=== PATIENT | female | born 1985 | race Caucasian/White ===

== ENCOUNTER 2021-03-27 07:05 | Inpatient (IN) | payer MEDICAID ==
[2021-03-27] MEDS ORDERED: Neostigmine Methylsulfate 1 MG/ML 5 ML Syringe ONE (07:11)
[2021-03-27] MEDS ORDERED: Rocuronium 50 MG/5 ML Vial ONE ×2 (07:11→11:45)
[2021-03-27] MEDS ORDERED: Propofol 200 MG/20 ML SDV ONE (07:11)
[2021-03-27] MEDS ORDERED: Glycopyrrolate 0.2 MG/ML 5 ML MDV ONE (07:11)
[2021-03-27] MEDS ORDERED: Dexamethasone 4 MG/ML SDV ONE (07:11)
[2021-03-27] MEDS ORDERED: fentaNYL 250 MCG/5 ML SDV ONE ×2 (07:11→12:14)
[2021-03-27] MEDS ORDERED: Ondansetron 4 MG/2 ML SDV ONE (07:11)
[2021-03-27] MEDS ORDERED: Succinylcholine 200 MG/10 ML MDV ONE (07:11)
[2021-03-27] MEDS ORDERED: HYDROmorphone/Normal Saline 15 MG/30 ML PCA IV PRN (07:43)
[2021-03-27] MEDS ORDERED: Piperacillin/Tazobactam/Dext 3.375 GM in Premix Bag 1 BAG IV ONE (08:00)
[2021-03-27] MEDS ORDERED: Ketamine 500 MG/5 ML MDV IV SCH (08:00)
[2021-03-27] MEDS ORDERED: Lactated Ringers 500 ML IV ONE (08:00)
[2021-03-27] MEDS ORDERED: Naloxone 0.4 MG/ML SDV IV PRN (08:00)
[2021-03-27] MEDS ORDERED: Ketamine 50 MG in Sodium Chloride 0.9% 49.5 ML IV SCH (08:00)
[2021-03-27] MEDS: Lactated Ringers 1,000 ML IV SCH ×3 (08:23→23:05)
[2021-03-27] MEDS ORDERED: Meperidine 300 MG/30 ML PCA Vial IV PRN (09:00)
[2021-03-27] MEDS ORDERED: Meropenem 500 MG SDV ONE (09:14)
[2021-03-27] MEDS ORDERED: Bupivacaine 0.5% 50 ML MDV ONE (09:14)
[2021-03-27] MEDS ORDERED: Lidocaine 1% with EPINEPHrine 1:100,000 50 ML MDV ONE (09:14)
[2021-03-27] MEDS: Potassium Acetate 20 MEQ, Lidocaine 1% 2 ML in Sodium Chloride 0.9% 100 ML IV SCH ×2 (09:30→14:42)
[2021-03-27] MEDS ORDERED: Sugammadex Sodium 200 MG/2 ML VIAL ONE (11:40)
[2021-03-27] MEDS ORDERED: Cyclobenzaprine 10 MG Tab PO PRN (13:55)
[2021-03-27] MEDS ORDERED: Albuterol/Ipratropium 3.0-0.5 MG/3 ML Neb Soln INH PRN (14:00)
[2021-03-27] MEDS ORDERED: Labetalol 20 MG/4 ML Syringe IVPUSH PRN (14:00)
[2021-03-27] MEDS ORDERED: Metoclopramide 10 MG/2 ML SDV IVPUSH PRN (14:00)
[2021-03-27] MEDS ORDERED: hydrOXYzine HCL 100 MG/2 ML SDV IM PRN (14:00)
[2021-03-27] MEDS ORDERED: diphenhydrAMINE 50 MG/ML SDV IVPUSH PRN (14:00)
[2021-03-27] MEDS: Albuterol/Ipratropium 3.0-0.5 MG/3 ML Neb Soln INH SCH ×3 (14:22→21:06)
[2021-03-27] MEDS: Piperacillin/Tazobactam/Dext 3.375 GM in Premix Bag 1 BAG IV SCH ×2 (14:41→20:50)
[2021-03-27] MEDS ORDERED: Acetaminophen 500 MG Tab PO PRN (15:00)
[2021-03-27] MEDS ORDERED: Acetaminophen 500 MG Tab PO SCH (16:00)
[2021-03-27] MEDS: MVI, Adult with Vitamin K 10 ML, Thiamine 200 MG, Zinc/Copper/Manganese/Selenium 1 ML i... IV SCH ×4 (16:08)
[2021-03-27] MEDS: Linezolid 600 MG in Premix Bag 1 BAG IV SCH (16:10)
[2021-03-27] MEDS: Heparin Sodium 5,000 Units/ML Vial SUBCUT SCH ×2 (16:13→23:48)
[2021-03-27] MEDS: Pantoprazole 40 MG Vial IVPUSH SCH (16:13)
[2021-03-27] MEDS: Magnesium Sulfate/Water 2 GM/50 ML BAG IV SCH ×2 (17:01→21:09)
[2021-03-27] MEDS: Potassium Phos in 0.9 % NaCl 15 MMOL in Premix Bag 1 BAG IV SCH ×6 (18:39→23:17)
[2021-03-28] MEDS: Potassium Phos in 0.9 % NaCl 15 MMOL in Premix Bag 1 BAG IV SCH ×2 (01:37)
[2021-03-28] MEDS: Piperacillin/Tazobactam/Dext 3.375 GM in Premix Bag 1 BAG IV SCH ×4 (01:37→19:57)
[2021-03-28] MEDS: Linezolid 600 MG in Premix Bag 1 BAG IV SCH ×2 (04:25→13:30)
[2021-03-28] MEDS: Magnesium Sulfate/Water 2 GM/50 ML BAG IV SCH ×4 (05:46→21:47)
[2021-03-28] MEDS: Albuterol/Ipratropium 3.0-0.5 MG/3 ML Neb Soln INH SCH ×4 (06:59→20:04)
[2021-03-28] MEDS: Lactated Ringers 1,000 ML IV SCH ×3 (07:24→21:45)
[2021-03-28] MEDS: Heparin Sodium 5,000 Units/ML Vial SUBCUT SCH ×3 (07:33→23:24)
[2021-03-28] MEDS ORDERED: Furosemide 20 MG/2 ML VIAL IVPUSH SCH (09:00)
[2021-03-28] MEDS: DULoxetine 30 MG Cap PO SCH (09:57)
[2021-03-28] MEDS: Pregabalin 75 MG Cap PO SCH ×2 (09:57→20:04)
[2021-03-28] MEDS: Furosemide 20 MG/2 ML VIAL IVPUSH SCH (09:57)
[2021-03-28] MEDS: Levothyroxine 100 MCG Tab PO SCH (09:57)
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
[2021-03-28] MEDS: Potassium Phosphates 15 MMOLE in Sodium Chloride 0.9% 250 ML IV SCH ×2 (10:34→12:45)
[2021-03-28] MEDS ORDERED: Sodium Chloride 0.9% 10 ML Syringe FLUSH PRN (11:28)
[2021-03-28] MEDS ORDERED: Sodium Chloride 0.9% 100 ML IV SCH (11:30)
[2021-03-28] MEDS ORDERED: Iopamidol 755 Mg/ML 100 ML Bottle IV SCH (11:30)
--- NOTE | 2021-03-28 13:49 | CRLCT ---
INDICATION: Hypoxic, respiratory failure. Two weeks postop from gastric bypass. TECHNIQUE: CT chest was acquired with IV contrast. Due to technical limitations and miss timed IV contrast bolus, no PE protocol performed. COMPARISON: None. FINDINGS: Cardiovascular structures: Heart size is normal. Thoracic aorta and main pulmonary artery are normal in caliber. No large, central pulmonary artery filling defect. Nondiagnostic evaluation lobar, segmental, and subsegmental pulmonary artery branches due to minimal contrast opacification. Mediastinum and micha: No mass or adenopathy. Lungs: Moderate degree of dependent atelectasis involving medial segment of left lower lobe. Mild dependant atelectasis at medial margin of right lower lobe. Bilateral upper lobes are clear. No airspace consolidation or suspicious ground-glass opacities. Pleura and pericardium: No effusions. Chest wall and axilla: No mass or adenopathy. Thyroid gland unremarkable. Upper abdomen: Postsurgical changes from recent gastric bypass. Bones: No significant findings. No displaced rib fracture deformity. IMPRESSION: 1. Nondiagnostic study for evaluation of pulmonary arteries due to sub-optimal timing of IV contrast bolus. 2. Postsurgical changes from recent gastric bypass. 3. Mild degree of dependent bilateral lower lobe atelectasis, left greater than right. Possible infiltrate in the left lower lobe not excluded. Dictated by Jefferson Daniel MD @ 03/28/2021 1:46:37 PM Please note that all CT scans at this facility use dose modulation, iterative reconstruction, and/or weight-based dosing when appropriate to reduce radiation dose to as low as reasonably achievable. Dictated by: Jefferson Daniel MD @ 03/28/2021 13:47:44 (Electronically Signed)
[2021-03-28] MEDS: Pantoprazole 40 MG Vial IVPUSH SCH (16:36)
[2021-03-28] MEDS: MVI, Adult with Vitamin K 10 ML, Thiamine 200 MG, Zinc/Copper/Manganese/Selenium 1 ML i... IV SCH ×4 (16:37)
[2021-03-29] MEDS: Piperacillin/Tazobactam/Dext 3.375 GM in Premix Bag 1 BAG IV SCH ×4 (02:28→21:19)
[2021-03-29] MEDS: Linezolid 600 MG in Premix Bag 1 BAG IV SCH ×2 (02:30→16:33)
[2021-03-29] MEDS: Magnesium Sulfate/Water 2 GM/50 ML BAG IV SCH ×4 (03:05→21:21)
[2021-03-29] MEDS: Albuterol/Ipratropium 3.0-0.5 MG/3 ML Neb Soln INH SCH ×4 (07:15→21:21)
[2021-03-29] MEDS: Levothyroxine 100 MCG Tab PO SCH (07:25)
[2021-03-29] MEDS ORDERED: Potassium Phosphates 60 MMOLE in Sodium Chloride 0.9% 250 ML IV SCH (07:45)
[2021-03-29] MEDS: Pregabalin 75 MG Cap PO SCH ×2 (08:41→21:20)
[2021-03-29] MEDS: Heparin Sodium 5,000 Units/ML Vial SUBCUT SCH ×2 (08:41→16:37)
[2021-03-29] MEDS: Furosemide 20 MG/2 ML VIAL IVPUSH SCH (08:42)
[2021-03-29] MEDS: DULoxetine 30 MG Cap PO SCH (08:42)
[2021-03-29] MEDS ORDERED: Cyanocobalamin (Vitamin B12) 1,000 MCG/ML SDV IM ONE (09:00)
[2021-03-29] MEDS: Ondansetron 4 MG/2 ML SDV IVPUSH PRN (09:31)
[2021-03-29] MEDS: Potassium Phosphates 15 MMOLE in Sodium Chloride 0.9% 250 ML IV SCH ×4 (09:56→17:00)
--- NOTE | 2021-03-29 10:14 | PN ---
DATE OF SERVICE: 03/29/2021 SUBJECTIVE: Elza states her pain is controlled. She does have her CPAP on right now. Has been afebrile. Oral intake 280, urine output 1475. JOHANN drain put out 35 mL of blue drainage and it is the back up JOHANN drain and JOHANN drain #2 put out 455 mL of a blue drainage which goes back behind the esophagus. REVIEW OF SYSTEMS: Remainder of review of systems negative for any pertinent positives or negatives. ASSESSMENT: Diagnostic laparotomy with drainage of intraabdominal abscess between esophagogastric junction and spleen. Date of procedure: 03/27/2021. Surgeon; Tonny Allison MD PLAN: 1. K-Phos 60 millimoles IV now. 2. p.r.n. as depending on O2 saturation. 3. Check CBC, mag, phos, BNP, and CMP in a.m. 4. We will evaluate p.r.n. or in a.m. 5. CT scan will be re-evaluated or pending drainage of the JOHANN drains, she may need to go to OR to put in esophageal stents, and at the same time we will put in a central line. 6. Continue to evaluate p.r.n. or in a.m. Dinora Fermin PA-C /[id number]
--- NOTE | 2021-03-29 11:58 | US ---
VL Duplex Lwr Ext Veins Comp bilateral HISTORY: No Clinical Info FINDINGS: The deep veins of the both lower extremities demonstrate normal augmentation and compressibility. No evidence for deep venous thrombosis. Calf veins are less than optimally seen due to patient body habitus. IMPRESSION: No evidence of DVT in either lower extremity
--- NOTE | 2021-03-29 13:49 | CR ---
CHEST: 2 view CLINICAL HISTORY:Hypoxia COMPARISON:None FINDINGS: Heart size and pulmonary vascularity are normal. There is some streaky airspace disease in the left lower lobe. This may be infiltrate or atelectasis. Lung markings are exaggerated by patient's large size. Impression: Streaky airspace disease in left lower lobe. This is atelectasis versus infiltrate.
--- NOTE | 2021-03-29 13:54 | CR ---
CHEST: 2 view CLINICAL HISTORY:Hypoxia COMPARISON:03/28/2021 FINDINGS: Patchy airspace disease persists in the left lower lobe. This minimal patchy right infrahilar density. There is a generalized prominence of the lung markings and vascularity. This is exaggerated by patient's large size and less than optimal inspiration. Impression: Persistent stable airspace disease left lower lobe Mild patchy infiltrate-like density in the right infrahilar region Less than optimal study due to patient's large size and poor inspiratory level
--- NOTE | 2021-03-29 15:18 | PCM.CONSN ---
- General Info Date of Service: 03/29/21 Subjective Update: Ms. Alejandre has been stable since yesterday, continues to require increased amount of supplemental oxygen. She denies shortness of breath from baseline and has otherwise been hemodynamically stable and afebrile. Functional Status: Reports: Pain Controlled - Review of Systems General: Reports: Weakness, Fatigue Pulmonary: Reports: Shortness of Breath. Denies: Pleuritic Chest Pain, Cough, Sputum, Hemoptysis, Wheezing Cardiovascular: Reports: Dyspnea on Exertion. Denies: Chest Pain, Palpitations, Orthopnea, PND, Edema, Lightheadedness Gastrointestinal: Reports: Abdominal Pain. Denies: Difficulty Swallowing, Nausea, Vomiting Genitourinary: Reports: No Symptoms - Patient Data Vitals - Most Recent: Last Vital Signs Temp 96.6 F L 03/29/21 14:24 Pulse 86 03/29/21 14:24 Resp 18 03/29/21 14:24 BP 105/61 03/29/21 14:24 Pulse Ox 95 03/29/21 14:24 Weight - Most Recent: 523 lb I&O - Last 24 Hours: Intake & Output 03/29/21 03/29/21 03/29/21 06:59 14:59 22:59 Intake Total 1940 60 Output Total 600 3480 Balance 1340 -3420 Lab Results Last 24 Hours: Laboratory Results - last 24 hr 03/29/21 03/29/21 Range/Units 04:10 04:10 WBC 6.3 (4.5-11.0) K/uL RBC 4.13 (3.30-5.50) M/uL Hgb 11.7 L (12.0-15.0) g/dL Hct 36.9 (36.0-48.0) % MCV 89 (80-98) fL MCH 28 (27-31) pg MCHC 32 (32-36) % Plt Count 212 (150-400) K/uL Neut % (Auto) 64 (36-66) % Lymph % (Auto) 22 L (24-44) % Yell % (Auto) 10 H (2-6) % Eos % (Auto) 3 (2-4) % Baso % (Auto) 1 (0-1) % Sodium 142 (140-148) mmol/L Potassium 3.2 L (3.6-5.2) mmol/L Chloride 104 (100-108) mmol/L Carbon Dioxide 26 (21-32) mmol/L Anion Gap 15.2 H (5.0-14.0) mmol/L BUN 7 (7-18) mg/dL Creatinine 0.9 (0.6-1.0) mg/dL Est Cr Clr Drug Dosing 71.48 mL/min Estimated GFR (MDRD) > 60 (>60) Glucose 157 H (74-106) mg/dL Calcium 7.9 L (8.5-10.1) mg/dL Phosphorus 2.6 (2.5-4.9) mg/dL Total Bilirubin 0.4 (0.2-1.0) mg/dL AST 27 (15-37) U/L ALT 41 (12-78) U/L Alkaline Phosphatase 57 (46-116) U/L NT-Pro-B Natriuret Pep 175 H (5-125) pg/mL Total Protein 6.4 (6.4-8.2) g/dL Albumin 2.3 L (3.4-5.0) g/dL Globulin 4.1 H (2.3-3.5) g/dL Albumin/Globulin Ratio 0.6 L (1.2-2.2) Onesimo Results Last 24 Hours: Microbiology 03/27/21 12:18 Gram Stain - Final Abdomen - Abscess Wound Culture - Preliminary Anaerobic Culture - Preliminary NO GROWTH AFTER 1 DAY 03/27/21 12:05 Gram Stain - Final Abdomen - Abscess Wound Culture - Preliminary Anaerobic Culture - Preliminary NO GROWTH AFTER 1 DAY 03/27/21 11:27 Urine Culture - Final Urine, Sinha Cath (Indwelling) NO GROWTH AFTER 2 DAYS Med Orders - Current: Current Medications Albuterol/Ipratropium (Albuterol/Ipratropium 3.0-0.5 Mg/3 Ml Neb Soln) 3 ml INH QIDRT MAURICE Last Admin: 03/29/21 14:40 Dose: 3 ml Documented by: Albuterol/Ipratropium (Albuterol/Ipratropium 3.0-0.5 Mg/3 Ml Neb Soln) 3 ml INH ASDIRECTED PRN PRN Reason: BREATHING Last Admin: 03/28/21 00:21 Dose: 3 ml Documented by: Cyclobenzaprine HCl (Cyclobenzaprine 10 Mg Tab) 10 mg PO Q8H PRN PRN Reason: Muscle Spasm Diphenhydramine HCl (Diphenhydramine 50 Mg/Ml Sdv) 50 mg IVPUSH Q4H PRN PRN Reason: ITCHING Duloxetine HCl (Duloxetine 30 Mg Cap) 60 mg PO DAILY [facility] Last Admin: 03/29/21 08:42 Dose: 60 mg Documented by: Furosemide (Furosemide 20 Mg/2 Ml Vial) 20 mg IVPUSH DAILY [facility] Last Admin: 03/29/21 08:42 Dose: 20 mg Documented by: Heparin Sodium (Porcine) (Heparin Sodium 5,000 Units/Ml Vial) 5,000 units SUBCUT Q8H [facility] Last Admin: 03/29/21 08:41 Dose: 5,000 units Documented by: Hydroxyzine HCl (Hydroxyzine Hcl 100 Mg/2 Ml Sdv) 100 mg IM Q4H PRN PRN Reason: breakthrough pain Lactated Ringer's (Ringers, Lactated) 1,000 mls @ 100 mls/hr IV ASDIRECTED [facility] Last Admin: 03/28/21 21:45 Dose: 200 mls/hr Documented by: Piperacillin/Tazobactam/ (Dextrose 3.375 gm/ Premix) 50 mls @ 100 mls/hr IV Q6H [facility] Last Admin: 03/29/21 13:44 Dose: 100 mls/hr Documented by: Linezolid 600 mg/ Premix 300 mls @ 300 mls/hr IV Q12H [facility] Last Admin: 03/29/21 02:30 Dose: 300 mls/hr Documented by: Magnesium Sulfate (Magnesium Sulfate In Water 2 Gm/50 Ml) 2 gm in 50 mls @ 25 mls/hr IV Q6HR [facility] Stop: 03/30/21 11:59 Last Admin: 03/29/21 09:02 Dose: 25 mls/hr Documented by: Potassium Phosphate 15 mmole/ (Sodium Chloride) 255 mls @ 125 mls/hr IV Q2H [facility] Stop: 03/29/21 17:59 Last Admin: 03/29/21 14:37 Dose: 125 mls/hr Documented by: Labetalol HCl (Labetalol 20 Mg/4 Ml Syringe) 5 mg IVPUSH Q5M PRN PRN Reason: SBP over 160 OR DBP over 95 Levothyroxine Sodium (Levothyroxine 100 Mcg Tab) 100 mcg PO DAILY@0730 [facility] Last Admin: 03/29/21 07:25 Dose: 100 mcg Documented by: Meperidine HCl (Meperidine 300 Mg/30 Ml Review Manager Vial) 0 mg IV ASDIRECTED PRN; Protocol PRN Reason: PAIN Last Admin: 03/27/21 10:12 Dose: 300 mg Documented by: Metoclopramide HCl (Metoclopramide 10 Mg/2 Ml Sdv) 10 mg IVPUSH Q6H PRN PRN Reason: NAUSEA NOT CONTROL BY ZOFRAN Naloxone HCl (Naloxone 0.4 Mg/Ml Sdv) 0.1 mg IV ASDIRECTED PRN PRN Reason: decreased respiratory rate Ondansetron HCl (Ondansetron 4 Mg/2 Ml Sdv) 4 mg IVPUSH Q4H PRN PRN Reason: Nausea/Vomiting Last Admin: 03/29/21 09:31 Dose: 4 mg Documented by: Pantoprazole Sodium (Pantoprazole 40 Mg Vial) 40 mg IVPUSH Q24H [facility] Last Admin: 03/28/21 16:36 Dose: 40 mg Documented by: Pregabalin (Pregabalin 75 Mg Cap) 150 mg PO BID [facility] Last Admin: 03/29/21 08:41 Dose: 150 mg Documented by: Discontinued Medications Bupivacaine HCl (Bupivacaine 0.5% 50 Ml Mdv) Confirm Administered Dose 50 ml .ROUTE .STK-MED ONE Stop: 03/27/21 09:15 Ropivacaine 60 ml/Dexamethasone 8 mg/Epinephrine HCl 0.4 mg/ Sodium Chloride 17.6 ml 0 ml NERVRT ASDIRECTED [facility] Last Admin: 03/27/21 11:39 Dose: 80 syringe Documented by: Cyanocobalamin (Cyanocobalamin (Vitamin B12) 1,000 Mcg/Ml Sdv) 1,000 mcg IM ONETIME ONE Stop: 03/29/21 09:01 Last Admin: 03/29/21 08:42 Dose: 1,000 mcg Documented by: Dexamethasone (Dexamethasone 4 Mg/Ml Sdv) Confirm Administered Dose 4 mg .ROUTE .STK-MED ONE Stop: 03/27/21 07:12 Fentanyl (Fentanyl 250 Mcg/5 Ml Sdv) Confirm Administered Dose 250 mcg .ROUTE .STK-MED ONE Stop: 03/27/21 07:12 Fentanyl (Fentanyl 250 Mcg/5 Ml Sdv) Confirm Administered Dose 250 mcg .ROUTE .STK-MED ONE Stop: 03/27/21 12:15 Furosemide (Furosemide 20 Mg/2 Ml Vial) 2 mg IVPUSH DAILY [facility] Glycopyrrolate (Glycopyrrolate 0.2 Mg/Ml 5 Ml Mdv) Confirm Administered Dose 1 mg .ROUTE .STK-MED ONE Stop: 03/27/21 07:12 Lactated Ringer's (Ringers, Lactated) 500 mls @ 1,000 mls/hr IV ONETIME ONE Stop: 03/27/21 08:29 Last Admin: 03/27/21 08:19 Dose: 1,000 mls/hr Documented by: Lactated Ringer's (Ringers, Lactated) 1,000 mls @ 250 mls/hr IV ASDIRECTED [facility] Last Admin: 03/27/21 10:15 Dose: 250 mls/hr Documented by: Piperacillin/Tazobactam/ (Dextrose 3.375 gm/ Premix) 50 mls @ 100 mls/hr IV ONETIME ONE Stop: 03/27/21 08:29 Last Admin: 03/27/21 08:19 Dose: 100 mls/hr Documented by: Aztreonam 1 gm/ Sodium (Chloride) 50 mls @ 100 mls/hr IV ONCALL ONE Stop: 03/27/21 09:29 Last Admin: 03/27/21 10:37 Dose: 100 mls/hr Documented by: Ketamine HCl 50 mg/ Sodium (Chloride) 50 mls @ 15.72 mls/hr IV ASDIRECTED [facility] Potassium Acetate 20 meq/Lidocaine HCl 2 ml/ Sodium Chloride 112 mls @ 56 mls/hr IV Q2H [facility] Stop: 03/27/21 12:59 Last Admin: 03/27/21 14:42 Dose: 56 mls/hr Documented by: Multivitamins/Minerals 10 ml/Thiamine HCl 200 mg/ Zinc 1 ml / Lactated Ringer's 1,013 mls @ 200 mls/hr IV DAILY@1600 [facility] Stop: 03/28/21 21:04 Last Admin: 03/28/21 16:37 Dose: 200 mls/hr Documented by: Potassium Phosphate 15 mmol/ (Premix) 250 mls @ 125 mls/hr IV Q2H [facility] Stop: 03/28/21 01:59 Last Admin: 03/28/21 01:37 Dose: 125 mls/hr Documented by: Potassium Phosphate 15 mmole/ (Sodium Chloride) 255 mls @ 125 mls/hr IV Q2H [facility] Stop: 03/28/21 13:59 Last Admin: 03/28/21 12:45 Dose: 125 mls/hr Documented by: Sodium Chloride (Normal Saline) 100 mls @ 3 mls/sec IV ASDIRECTED [facility] Stop: 03/28/21 13:00 Last Admin: 03/28/21 13:08 Dose: 3 mls/sec Documented by: Iopamidol (Iopamidol 755 Mg/Ml 100 Ml Bottle) 100 ml IV . DIRECTED [facility] Stop: 03/28/21 13:00 Last Admin: 03/28/21 13:08 Dose: 100 ml Documented by: Ketamine HCl (Ketamine 500 Mg/5 Ml Mdv) 26 mg IV ASDIRECTED [facility] Lidocaine/Epinephrine (Lidocaine 1% With Epinephrine 1:100,000 50 Ml Mdv) Confirm Administered Dose 50 ml .ROUTE .STK-MED ONE Stop: 03/27/21 09:15 Linezolid (Linezolid 600 Mg/300 Ml Bag) 600 mg IV .STK-MED ONE Stop: 03/27/21 12:34 Last Admin: 03/27/21 12:33 Dose: 600 mg Documented by: Meropenem (Meropenem 500 Mg Sdv) Confirm Administered Dose 500 mg .ROUTE .STK- MED ONE Stop: 03/27/21 09:15 Neostigmine Methylsulfate (Neostigmine Methylsulfate 1 Mg/Ml 5 Ml Syringe) Confirm Administered Dose 5 mg .ROUTE .STK-MED ONE Stop: 03/27/21 07:12 Ondansetron HCl (Ondansetron 4 Mg/2 Ml Sdv) Confirm Administered Dose 4 mg .ROUTE .STK-MED ONE Stop: 03/27/21 07:12 Piperacillin Sod/Tazobactam Sod (Piperacillin/Tazobactam 3.375 Gm Vial) Confirm Administered Dose 3.375 gm .ROUTE .STK-MED ONE Stop: 03/27/21 11:10 Piperacillin Sod/Tazobactam Sod (Piperacillin/Tazobactam 3.375 Gm Vial) 3.375 gm .XX .STK-MED ONE Stop: 03/27/21 11:53 Last Admin: 03/27/21 11:52 Dose: 3.375 gm Documented by: Propofol (Propofol 200 Mg/20 Ml Sdv) Confirm Administered Dose 200 mg .ROUTE .STK-MED ONE Stop: 03/27/21 07:12 Rocuronium [place] (Rocuronium 50 Mg/5 Ml Vial) Confirm Administered Dose 50 mg .ROUTE .STK-MED ONE Stop: 03/27/21 07:12 Rocuronium [place] (Rocuronium 50 Mg/5 Ml Vial) Confirm Administered Dose 50 mg .ROUTE .STK-MED ONE Stop: 03/27/21 11:46 Sodium Chloride (Sodium Chloride 0.9% 10 Ml Syringe) 10 ml FLUSH ASDIRECTED PRN PRN Reason: Keep Vein Open Stop: 03/28/21 13:00 Succinylcholine Chloride (Succinylcholine 200 Mg/10 Ml Mdv) Confirm Administered Dose 200 mg .ROUTE .STK-MED ONE Stop: 03/27/21 07:12 Sugammadex Sodium (Sugammadex Sodium 200 Mg/2 Ml Vial) Confirm Administered Dose 200 mg .ROUTE .STK-MED ONE Stop: 03/27/21 11:41 - Exam Quality Assessment: Supplemental Oxygen, DVT Prophylaxis General: Alert, Oriented, Cooperative, Mild Distress Lungs: Clear to Auscultation, Normal Respiratory Effort, Decreased Breath Sounds Cardiovascular: Regular Rate, Regular Rhythm, No Murmurs GI/Abdominal Exam: Soft, Non-Tender, No Organomegaly, No Distention Extremities: Non-Tender, No Pedal Edema Sepsis Event Note - Evaluation Sepsis Screening Result: No Definite Risk - Focused Exam Vital Signs: Vital Signs Temp Pulse Resp BP BP Pulse Ox 03/29/21 14:24 96.6 F L 86 18 105/61 95 03/29/21 13:24 93 L 03/29/21 11:00 95.2 F L 89 18 117/54 L 91 L 03/29/21 07:19 96 03/29/21 07:00 96.2 F L 91 18 131/53 L 91 L Consult PN Assessment/Plan Procedures: Procedures BLOOD TYPING SEROLOGIC ABO (01/29/21) BLOOD TYPING SEROLOGIC RH(D) (01/29/21) RBC ANTIBODY SCREEN (01/29/21) ROUTINE VENIPUNCTURE (01/29/21) Problem List Initiated/Reviewed/Updated: Yes Plan: ASSESSMENT AND RECOMMENDATIONS Acute respiratory failure with hypoxia-atelectasis seems to be the most likely culprit based on CT scan imaging. Cannot rule out PE because of nondiagnostic scan. She is on broad-spectrum antibiotics in case there is an infiltrate superimposed on the atelectasis. No history of lung issues. There is probably some contribution from obesity hypoventilation and her surgery yesterday. Venous Doppler studies of both lower extremities showed no evidence of deep vein thrombosis -Aggressive pulmonary toilet -Supplement oxygen as needed, wean as able -Broad-spectrum antibiotics -Consider noninvasive ventilation if condition declines but patient is currently stable and does not require ICU level care Intra-abdominal abscess with anastomotic leak-patient is 2 weeks out from surgery. Did have drainage of the abscess. Stenting planned for tomorrow. -Surgical management per Dr. Allison Morbid obesity with BMI greater than 90-recent gastric bypass surgery Hypokalemia-recurrent -IV potassium replacement as ordered -Reassess potassium level in a.m.
[2021-03-29] MEDS: Pantoprazole 40 MG Vial IVPUSH SCH (16:37)
[2021-03-30] MEDS: Heparin Sodium 5,000 Units/ML Vial SUBCUT SCH ×4 (00:04→23:55)
[2021-03-30] MEDS: Piperacillin/Tazobactam/Dext 3.375 GM in Premix Bag 1 BAG IV SCH ×4 (01:58→19:34)
[2021-03-30] MEDS: Linezolid 600 MG in Premix Bag 1 BAG IV SCH ×2 (02:16→15:34)
[2021-03-30] MEDS: Magnesium Sulfate/Water 2 GM/50 ML BAG IV SCH ×2 (03:55→09:44)
[2021-03-30] MEDS: Lactated Ringers 1,000 ML IV SCH (04:39)
[2021-03-30] MEDS: Albuterol/Ipratropium 3.0-0.5 MG/3 ML Neb Soln INH SCH ×4 (07:23→20:59)
[2021-03-30] MEDS ORDERED: Potassium Chloride 20 MEQ in Premix Bag 1 BAG IV ONE (07:33)
[2021-03-30] MEDS: Levothyroxine 100 MCG Tab PO SCH (07:39)
[2021-03-30] MEDS ORDERED: Potassium Phosphates 30 MMOLE in Sodium Chloride 0.9% 250 ML IV SCH (07:45)
[2021-03-30] MEDS: DULoxetine 30 MG Cap PO SCH (08:30)
[2021-03-30] MEDS: Pregabalin 75 MG Cap PO SCH ×2 (08:30→20:58)
[2021-03-30] MEDS ORDERED: Potassium Chloride 20 MEQ, Lidocaine 1% 2 ML in Sodium Chloride 0.9% 100 ML IV ONE (08:30)
[2021-03-30] MEDS: Furosemide 20 MG/2 ML VIAL IVPUSH SCH (08:30)
[2021-03-30] MEDS ORDERED: Bupivacaine 0.5% 50 ML MDV ONE (08:32)
[2021-03-30] MEDS ORDERED: Lidocaine 1% with EPINEPHrine 1:100,000 50 ML MDV ONE (08:33)
[2021-03-30] MEDS ORDERED: Dexamethasone 4 MG/ML SDV ONE (09:24)
[2021-03-30] MEDS ORDERED: Propofol 200 MG/20 ML SDV ONE (09:24)
[2021-03-30] MEDS ORDERED: Rocuronium 50 MG/5 ML Vial ONE (09:24)
[2021-03-30] MEDS ORDERED: Neostigmine Methylsulfate 1 MG/ML 5 ML Syringe ONE (09:24)
[2021-03-30] MEDS ORDERED: Glycopyrrolate 0.2 MG/ML 5 ML MDV ONE (09:24)
[2021-03-30] MEDS ORDERED: fentaNYL 250 MCG/5 ML SDV ONE (09:24)
[2021-03-30] MEDS ORDERED: Ondansetron 4 MG/2 ML SDV ONE (09:24)
--- NOTE | 2021-03-30 09:53 | PN ---
DATE OF SERVICE: 03/30/2021 SUBJECTIVE: Elza will be having an esophageal stent placed today. Oral intake was 400, output 4600 via Sinha catheter. JOHANN drain #1 put out 15 of a clear yellow and JOHANN drain #2 put out 140 mL of a blue drainage. Potassium was 3.2 this morning, maintaining oxygen levels above 90 at 4 L of O2. REVIEW OF SYSTEMS: Remainder of review of systems negative for any pertinent positives and negatives. OBJECTIVE: GENERAL: Elza Alejandre is a pleasant 35-year-old female. She is alert and orientated. Breathing is less labored. VITAL SIGNS: TPR is 96.6, 82, 18, blood pressure 113/53. HEENT: Negative. NECK: Supple. HEART: Regular rate and rhythm. LUNGS: Clear. ABDOMEN: Dressings dry and intact. Abdominal binder is on. EXTREMITIES: Without peripheral edema. ASSESSMENT: 1. Diagnostic laparoscopy with drainage of intraabdominal abscess between esophagogastric junction and spleen. 2. Date of procedure: 03/27/2021. Surgeon: Tonny Allison MD. PLAN: 1. Have consent signed for placement of esophageal stent and Marquez catheter insertion. Case to follow, 03/30/2021. Approximate time 1300. General anesthesia. 2. KCl IV 20 mEq one time. 3. K-Phos 30 millimoles IV 1 time today. 4. Check CBC, CMP, phos, and BNP in a.m. 5. Continue use of incentive spirometer and ambulation. 6. We will evaluate p.r.n. or in a.m. Dinora Fermin PA-C /[id number]
--- NOTE | 2021-03-30 11:25 | PN ---
DATE OF SERVICE: 03/28/2021 The patient is running temperatures in the 96 to 98 range. She did have a temperature postoperatively in the 100 range, but these have come down subsequent to the drainage. Her blood pressure is stable at 100 to 110/50s to 90. Heart rate is running in the 70 to 90 range. Her biggest issue overnight has been some problems with relatively low oxygen on 6 L O2 sats in the 90% to 93% range. Chest x-ray showed some atelectasis particularly in the left base. Somewhat surprisingly there was no evidence of a pleural effusion on that side. The drainage in the JOHANN drain immediately adjacent to the esophagogastric junction does have some blue stain in it at this point, so she has developed somewhat of a leak, although that was not detectable yesterday. Labs show a white count of 7.4, hemoglobin 11.9, potassium is up at 3.9. Magnesium was quite low yesterday at 1.2, this will be supplemented over the next 72 hours. Otherwise, the cultures appear to be growing out the gram-positive cocci as well as gram-negative richard. Both of these organisms together should be likely covered by the Zosyn-Zyvox combination. We will simplify the antibiotic regimen tomorrow. If the patient continues to have a significant amount of leak, we will most likely place a stent along with the central venous line tomorrow. We will see how things look overnight in terms of the amount of drainage. Tonny Allison MD /[id number]
[2021-03-30] MEDS: Potassium Phosphates 15 MMOLE in Sodium Chloride 0.9% 250 ML IV SCH ×2 (11:45→16:18)
[2021-03-30] MEDS ORDERED: Succinylcholine 200 MG/10 ML MDV ONE (11:52)
[2021-03-30] MEDS ORDERED: Metoclopramide 10 MG/2 ML SDV ONE (13:18)
[2021-03-30] MEDS ORDERED: Sugammadex Sodium 200 MG/2 ML VIAL IV ONE (13:45)
[2021-03-30] MEDS: Ondansetron 4 MG/2 ML SDV IVPUSH PRN ×2 (14:51→19:29)
[2021-03-30] MEDS: Pantoprazole 40 MG Vial IVPUSH SCH (16:22)
[2021-03-30] MEDS: Metoclopramide 10 MG/2 ML SDV IVPUSH SCH ×2 (16:22→21:00)
[2021-03-30] MEDS ORDERED: Lactated Ringers 1,000 ML IV SCH (17:30)
[2021-03-30] MEDS: 1: AA 4.25%/Calcium/D10W/Lytes 1,000 ML with MVI, Adult with Vitamin K 10 ML, Zinc/Coppe IV SCH ×3 (17:41)
--- NOTE | 2021-03-30 18:10 | PCM.CONSN ---
- General Info Date of Service: 03/30/21 Subjective Update: Ms. Alejandre is status post placement of esophageal stent this afternoon. She has been stable since yesterday with no significant temperature elevation. Continues to require supplemental oxygen. Functional Status: Reports: Tolerating Diet, Urinating - Review of Systems General: Reports: Weakness, Fatigue. Denies: Fever, Chills Pulmonary: Reports: Shortness of Breath. Denies: Pleuritic Chest Pain, Cough, Sputum, Hemoptysis, Wheezing Cardiovascular: Reports: Dyspnea on Exertion. Denies: Chest Pain, Palpitations, Orthopnea, PND, Edema, Lightheadedness Gastrointestinal: Reports: Abdominal Pain. Denies: Difficulty Swallowing, Hematochezia, Melena, Nausea, Vomiting - Patient Data Vitals - Most Recent: Last Vital Signs Temp 98.2 F 03/30/21 16:05 Pulse 85 03/30/21 16:05 Resp 18 03/30/21 16:05 BP 119/71 03/30/21 16:05 Pulse Ox 92 L 03/30/21 16:05 Weight - Most Recent: 523 lb I&O - Last 24 Hours: Intake & Output 03/30/21 03/30/21 03/30/21 06:59 14:59 22:59 Intake Total 1563 500 550 Output Total 570 347 475 Balance [phone] -[phone] 75 Lab Results Last 24 Hours: Laboratory Results - last 24 hr 03/30/21 03/30/21 Range/Units 04:00 04:00 WBC 4.5 (4.5-11.0) K/uL RBC 4.09 (3.30-5.50) M/uL Hgb 11.5 L (12.0-15.0) g/dL Hct 37.0 (36.0-48.0) % MCV 91 (80-98) fL MCH 28 (27-31) pg MCHC 31 L (32-36) % Plt Count 232 (150-400) K/uL Sodium 144 (140-148) mmol/L Potassium 3.2 L (3.6-5.2) mmol/L Chloride 103 (100-108) mmol/L Carbon Dioxide 29 (21-32) mmol/L Anion Gap 15.2 H (5.0-14.0) mmol/L BUN 6 L (7-18) mg/dL Creatinine 0.7 (0.6-1.0) mg/dL Est Cr Clr Drug Dosing 91.91 mL/min Estimated GFR (MDRD) > 60 (>60) Glucose 132 H (74-106) mg/dL Calcium 7.8 L (8.5-10.1) mg/dL Phosphorus 4.0 (2.5-4.9) mg/dL Magnesium 2.9 H D (1.8-2.4) mg/dL Total Bilirubin 0.4 (0.2-1.0) mg/dL AST 23 (15-37) U/L ALT 36 (12-78) U/L Alkaline Phosphatase 58 (46-116) U/L NT-Pro-B Natriuret Pep 149 H (5-125) pg/mL Total Protein 6.2 L (6.4-8.2) g/dL Albumin 2.2 L (3.4-5.0) g/dL Globulin 4.0 H (2.3-3.5) g/dL Albumin/Globulin Ratio 0.6 L (1.2-2.2) Onesimo Results Last 24 Hours: Microbiology 03/27/21 12:05 Gram Stain - Final Abdomen - Abscess Wound Culture - Final Klebsiella Pneumonia Ss Pneumo Viridans Streptococcus Anaerobic Culture - Final NO GROWTH AFTER 3 DAYS 03/27/21 12:18 Gram Stain - Final Abdomen - Abscess Wound Culture - Final Klebsiella Pneumonia Ss Pneumo Viridans Streptococcus Anaerobic Culture - Final NO GROWTH AFTER 3 DAYS Med Orders - Current: Current Medications Albuterol/Ipratropium (Albuterol/Ipratropium 3.0-0.5 Mg/3 Ml Neb Soln) 3 ml INH QIDRT [facility] Last Admin: 03/30/21 14:28 Dose: 3 ml Documented by: Albuterol/Ipratropium (Albuterol/Ipratropium 3.0-0.5 Mg/3 Ml Neb Soln) 3 ml INH ASDIRECTED PRN PRN Reason: BREATHING Last Admin: 03/28/21 00:21 Dose: 3 ml Documented by: Cyclobenzaprine HCl (Cyclobenzaprine 10 Mg Tab) 10 mg PO Q8H PRN PRN Reason: Muscle Spasm Diphenhydramine HCl (Diphenhydramine 50 Mg/Ml Sdv) 50 mg IVPUSH Q4H PRN PRN Reason: ITCHING Duloxetine HCl (Duloxetine 30 Mg Cap) 60 mg PO DAILY [facility] Last Admin: 03/30/21 08:30 Dose: 60 mg Documented by: Furosemide (Furosemide 20 Mg/2 Ml Vial) 20 mg IVPUSH DAILY [facility] Last Admin: 03/30/21 08:30 Dose: 20 mg Documented by: Heparin Sodium (Porcine) (Heparin Sodium 5,000 Units/Ml Vial) 5,000 units SUBCUT Q8H [facility] Last Admin: 03/30/21 16:22 Dose: 5,000 units Documented by: Hydroxyzine HCl (Hydroxyzine Hcl 100 Mg/2 Ml Sdv) 100 mg IM Q4H PRN PRN Reason: breakthrough pain Piperacillin/Tazobactam/ (Dextrose 3.375 gm/ Premix) 50 mls @ 100 mls/hr IV Q6H [facility] Last Admin: 03/30/21 14:35 Dose: 100 mls/hr Documented by: Linezolid 600 mg/ Premix 300 mls @ 300 mls/hr IV Q12H [facility] Last Admin: 03/30/21 15:34 Dose: 300 mls/hr Documented by: Multivitamins/Minerals 10 ml/Zinc 1 ml/ Amino Acids/Electrolytes/Dextrose 1,011 mls @ 100 mls/hr IV .BY DURATION [facility] Last Admin: 03/30/21 17:41 Dose: 100 mls/hr Documented by: Amino Acids/Electrolytes/Dextrose (Clinimix E 4.25/10) 1,000 mls @ 100 mls/hr IV .BY DURATION [facility] Lactated Ringer's (Ringers, Lactated) 1,000 mls @ 20 mls/hr IV ASDIRECTED [facility] Labetalol HCl (Labetalol 20 Mg/4 Ml Syringe) 5 mg IVPUSH Q5M PRN PRN Reason: SBP over 160 OR DBP over 95 Levothyroxine Sodium (Levothyroxine 100 Mcg Tab) 100 mcg PO DAILY@0730 [facility] Last Admin: 03/30/21 07:39 Dose: 100 mcg Documented by: Metoclopramide HCl (Metoclopramide 10 Mg/2 Ml Sdv) 10 mg IVPUSH Q6H [facility] Last Admin: 03/30/21 16:22 Dose: 10 mg Documented by: Naloxone HCl (Naloxone 0.4 Mg/Ml Sdv) 0.1 mg IV ASDIRECTED PRN PRN Reason: decreased respiratory rate Ondansetron HCl (Ondansetron 4 Mg/2 Ml Sdv) 4 mg IVPUSH Q4H PRN PRN Reason: Nausea/Vomiting Last Admin: 03/30/21 14:51 Dose: 4 mg Documented by: Pantoprazole Sodium (Pantoprazole 40 Mg Vial) 40 mg IVPUSH Q24H [facility] Last Admin: 03/30/21 16:22 Dose: 40 mg Documented by: Pregabalin (Pregabalin 75 Mg Cap) 150 mg PO BID [facility] Last Admin: 03/30/21 08:30 Dose: 150 mg Documented by: Discontinued Medications Bupivacaine HCl (Bupivacaine 0.5% 50 Ml Mdv) Confirm Administered Dose 50 ml .ROUTE .STK-MED ONE Stop: 03/27/21 09:15 Bupivacaine HCl (Bupivacaine 0.5% 50 Ml Mdv) Confirm Administered Dose 50 ml .ROUTE .STK-MED ONE Stop: 03/30/21 08:33 Ropivacaine 60 ml/Dexamethasone 8 mg/Epinephrine HCl 0.4 mg/ Sodium Chloride 17.6 ml 0 ml NERVRT ASDIRECTED [facility] Last Admin: 03/27/21 11:39 Dose: 80 syringe Documented by: Cyanocobalamin (Cyanocobalamin (Vitamin B12) 1,000 Mcg/Ml Sdv) 1,000 mcg IM ONETIME ONE Stop: 03/29/21 09:01 Last Admin: 03/29/21 08:42 Dose: 1,000 mcg Documented by: Dexamethasone (Dexamethasone 4 Mg/Ml Sdv) Confirm Administered Dose 4 mg .ROUTE .STK-MED ONE Stop: 03/27/21 07:12 Dexamethasone (Dexamethasone 4 Mg/Ml Sdv) Confirm Administered Dose 4 mg .ROUTE .STK-MED ONE Stop: 03/30/21 09:25 Droperidol (Droperidol 5 Mg/2 Ml Sdv) Confirm Administered Dose 5 mg .ROUTE .STK-MED ONE Stop: 03/30/21 13:19 Fentanyl (Fentanyl 250 Mcg/5 Ml Sdv) Confirm Administered Dose 250 mcg .ROUTE .STK-MED ONE Stop: 03/27/21 07:12 Fentanyl (Fentanyl 250 Mcg/5 Ml Sdv) Confirm Administered Dose 250 mcg .ROUTE .STK-MED ONE Stop: 03/27/21 12:15 Fentanyl (Fentanyl 250 Mcg/5 Ml Sdv) Confirm Administered Dose 250 mcg .ROUTE .STK-MED ONE Stop: 03/30/21 09:25 Furosemide (Furosemide 20 Mg/2 Ml Vial) 2 mg IVPUSH DAILY [facility] Glycopyrrolate (Glycopyrrolate 0.2 Mg/Ml 5 Ml Mdv) Confirm Administered Dose 1 mg .ROUTE .STK-MED ONE Stop: 03/27/21 07:12 Glycopyrrolate (Glycopyrrolate 0.2 Mg/Ml 5 Ml Mdv) Confirm Administered Dose 1 mg .ROUTE .STK-[facility] ONE Stop: 03/30/21 09:25 Heparin Sodium (Porcine) (Heparin Sodium 100 Units/Ml 5 Ml Syringe) Confirm Administered Dose 1,500 units .ROUTE .STK-MED ONE Stop: 03/30/21 08:34 Last Admin: 03/30/21 14:08 Dose: 1,500 units Documented by: Lactated Ringer's (Ringers, Lactated) 500 mls @ 1,000 mls/hr IV ONETIME ONE Stop: 03/27/21 08:29 Last Admin: 03/27/21 08:19 Dose: 1,000 mls/hr Documented by: Lactated Ringer's (Ringers, Lactated) 1,000 mls @ 250 mls/hr IV ASDIRECTED [facility] Last Admin: 03/27/21 10:15 Dose: 250 mls/hr Documented by: Piperacillin/Tazobactam/ (Dextrose 3.375 gm/ Premix) 50 mls @ 100 mls/hr IV ONETIME ONE Stop: 03/27/21 08:29 Last Admin: 03/27/21 08:19 Dose: 100 mls/hr Documented by: Aztreonam 1 gm/ Sodium (Chloride) 50 mls @ 100 mls/hr IV ONCALL ONE Stop: 03/27/21 09:29 Last Admin: 03/27/21 10:37 Dose: 100 mls/hr Documented by: Ketamine HCl 50 mg/ Sodium (Chloride) 50 mls @ 15.72 mls/hr IV ASDIRECTED [facility] Potassium Acetate 20 meq/Lidocaine HCl 2 ml/ Sodium Chloride 112 mls @ 56 mls/hr IV Q2H [facility] Stop: 03/27/21 12:59 Last Admin: 03/27/21 14:42 Dose: 56 mls/hr Documented by: Lactated Ringer's (Ringers, Lactated) 1,000 mls @ 100 mls/hr IV ASDIRECTED [facility] Last Admin: 03/30/21 04:39 Dose: 200 mls/hr Documented by: Multivitamins/Minerals 10 ml/Thiamine HCl 200 mg/ Zinc 1 ml / Lactated Ringer's 1,013 mls @ 200 mls/hr IV DAILY@1600 [facility] Stop: 03/28/21 21:04 Last Admin: 03/28/21 16:37 Dose: 200 mls/hr Documented by: Magnesium Sulfate (Magnesium Sulfate In Water 2 Gm/50 Ml) 2 gm in 50 mls @ 25 mls/hr IV Q6HR [facility] Stop: 03/30/21 11:59 Last Admin: 03/30/21 09:44 Dose: 25 mls/hr Documented by: Potassium Phosphate 15 mmol/ (Premix) 250 mls @ 125 mls/hr IV Q2H [facility] Stop: 03/28/21 01:59 Last Admin: 03/28/21 01:37 Dose: 125 mls/hr Documented by: Potassium Phosphate 15 mmole/ (Sodium Chloride) 255 mls @ 125 mls/hr IV Q2H [facility] Stop: 03/28/21 13:59 Last Admin: 03/28/21 12:45 Dose: 125 mls/hr Documented by: Sodium Chloride (Normal Saline) 100 mls @ 3 mls/sec IV ASDIRECTED [facility] Stop: 03/28/21 13:00 Last Admin: 03/28/21 13:08 Dose: 3 mls/sec Documented by: Potassium Phosphate 15 mmole/ (Sodium Chloride) 255 mls @ 125 mls/hr IV Q2H [facility] Stop: 03/29/21 17:59 Last Admin: 03/29/21 17:00 Dose: 125 mls/hr Documented by: Potassium Chloride 20 meq/Lidocaine HCl 2 ml/ Sodium Chloride 112 mls @ 56 mls/hr IV ONETIME ONE Stop: 03/30/21 10:29 Last Admin: 03/30/21 09:39 Dose: 56 mls/hr Documented by: Potassium Phosphate 15 mmole/ (Sodium Chloride) 255 mls @ 125 mls/hr IV Q2H [facility] Stop: 03/30/21 14:59 Last Admin: 03/30/21 16:18 Dose: 125 mls/hr Documented by: Iopamidol (Iopamidol 755 Mg/Ml 100 Ml Bottle) 100 ml IV . DIRECTED [facility] Stop: 03/28/21 13:00 Last Admin: 03/28/21 13:08 Dose: 100 ml Documented by: Ketamine HCl (Ketamine 500 Mg/5 Ml Mdv) 26 mg IV ASDIRECTED [facility] Lidocaine/Epinephrine (Lidocaine 1% With Epinephrine 1:100,000 50 Ml Mdv) Confirm Administered Dose 50 ml .ROUTE .STK-MED ONE Stop: 03/27/21 09:15 Lidocaine/Epinephrine (Lidocaine 1% With Epinephrine 1:100,000 50 Ml Mdv) Confirm Administered Dose 50 ml .ROUTE .STK-MED ONE Stop: 03/30/21 08:34 Linezolid (Linezolid 600 Mg/300 Ml Bag) 600 mg IV .STK-MED ONE Stop: 03/27/21 12:34 Last Admin: 03/27/21 12:33 Dose: 600 mg Documented by: Meperidine HCl (Meperidine 300 Mg/30 Ml Loading Checker Vial) 0 mg IV ASDIRECTED PRN; Protocol PRN Reason: PAIN Last Admin: 03/27/21 10:12 Dose: 300 mg Documented by: Meropenem (Meropenem 500 Mg Sdv) Confirm Administered Dose 500 mg .ROUTE .STK- MED ONE Stop: 03/27/21 09:15 Metoclopramide HCl (Metoclopramide 10 Mg/2 Ml Sdv) 10 mg IVPUSH Q6H PRN PRN Reason: NAUSEA NOT CONTROL BY ZOFRAN Metoclopramide HCl (Metoclopramide 10 Mg/2 Ml Sdv) Confirm Administered Dose 10 mg .ROUTE .STK-MED ONE Stop: 03/30/21 13:19 Neostigmine Methylsulfate (Neostigmine Methylsulfate 1 Mg/Ml 5 Ml Syringe) Confirm Administered Dose 5 mg .ROUTE .STK-MED ONE Stop: 03/27/21 07:12 Neostigmine Methylsulfate (Neostigmine Methylsulfate 1 Mg/Ml 5 Ml Syringe) Confirm Administered Dose 5 mg .ROUTE .STK-MED ONE Stop: 03/30/21 09:25 Ondansetron HCl (Ondansetron 4 Mg/2 Ml Sdv) Confirm Administered Dose 4 mg .ROUTE .STK-MED ONE Stop: 03/27/21 07:12 Ondansetron HCl (Ondansetron 4 Mg/2 Ml Sdv) Confirm Administered Dose 4 mg .ROUTE .STK-MED ONE Stop: 03/30/21 09:25 Piperacillin Sod/Tazobactam Sod (Piperacillin/Tazobactam 3.375 Gm Vial) Confirm Administered Dose 3.375 gm .ROUTE .STK-MED ONE Stop: 03/27/21 11:10 Piperacillin Sod/Tazobactam Sod (Piperacillin/Tazobactam 3.375 Gm Vial) 3.375 gm .XX .STK-MED ONE Stop: 03/27/21 11:53 Last Admin: 03/27/21 11:52 Dose: 3.375 gm Documented by: Propofol (Propofol 200 Mg/20 Ml Sdv) Confirm Administered Dose 200 mg .ROUTE .STK-MED ONE Stop: 03/27/21 07:12 Propofol (Propofol 200 Mg/20 Ml Sdv) Confirm Administered Dose 200 mg .ROUTE .ST-MED ONE Stop: 03/30/21 09:25 Rocuronium [place] (Rocuronium 50 Mg/5 Ml Vial) Confirm Administered Dose 50 mg .ROUTE .STK-MED ONE Stop: 03/27/21 07:12 Rocuronium [place] (Rocuronium 50 Mg/5 Ml Vial) Confirm Administered Dose 50 mg .ROUTE .STK-MED ONE Stop: 03/27/21 11:46 Rocuronium [place] (Rocuronium 50 Mg/5 Ml Vial) Confirm Administered Dose 50 mg .ROUTE .ST-MED ONE Stop: 03/30/21 09:25 Sodium Chloride (Sodium Chloride 0.9% 10 Ml Syringe) 10 ml FLUSH ASDIRECTED PRN PRN Reason: Keep Vein Open Stop: 03/28/21 13:00 Succinylcholine Chloride (Succinylcholine 200 Mg/10 Ml Mdv) Confirm Administered Dose 200 mg .ROUTE .STK-MED ONE Stop: 03/27/21 07:12 Succinylcholine Chloride (Succinylcholine 200 Mg/10 Ml Mdv) Confirm Administered Dose 200 mg .ROUTE .STK-MED ONE Stop: 03/30/21 11:53 Sugammadex Sodium (Sugammadex Sodium 200 Mg/2 Ml Vial) Confirm Administered Dose 200 mg .ROUTE .STK-MED ONE Stop: 03/27/21 11:41 Sugammadex Sodium (Sugammadex Sodium 200 Mg/2 Ml Vial) 200 mg IV ONETIME ONE Stop: 03/30/21 13:46 - Exam Quality Assessment: Supplemental Oxygen General: Alert, Oriented, Cooperative, Mild Distress Lungs: Clear to Auscultation, Normal Respiratory Effort, Decreased Breath Sounds Cardiovascular: Regular Rate, Regular Rhythm, No Murmurs GI/Abdominal Exam: Soft, No Organomegaly, Tender. No: Distended, Guarding, Rigid, Rebound Extremities: Non-Tender, No Pedal Edema Sepsis Event Note - Evaluation Sepsis Screening Result: No Definite Risk - Focused Exam Vital Signs: Vital Signs Temp Pulse Resp BP BP Pulse Ox 03/30/21 16:05 98.2 F 85 18 119/71 92 L 03/30/21 15:37 96.4 F L 90 18 126/61 92 L 03/30/21 15:05 96.3 F L 68 18 154/75 H 91 L 03/30/21 14:50 96.4 F L 79 16 149/84 H 86 L 03/30/21 14:38 96.6 F L 88 16 152/69 H 87 L 03/30/21 14:25 89 L 03/30/21 14:23 96.8 F L 84 20 145/69 H 88 L 03/30/21 14:05 97.2 F 88 18 119/71 89 L 03/30/21 14:00 90 18 109/67 89 L 03/30/21 13:55 87 18 106/63 89 L 03/30/21 13:50 97.7 F 69 18 97/53 L 92 L 03/30/21 13:45 92 18 104/58 L 90 L 03/30/21 13:40 93 15 107/67 89 L 03/30/21 13:35 97.0 F 78 13 113/66 90 L 03/30/21 11:00 98.4 F 83 18 120/49 L 92 L 03/30/21 07:36 96.6 F L 82 18 113/53 L 93 L 03/30/21 07:13 87 L Consult PN Assessment/Plan Procedures: Procedures BLOOD TYPING SEROLOGIC ABO (01/29/21) BLOOD TYPING SEROLOGIC RH(D) (01/29/21) RBC ANTIBODY SCREEN (01/29/21) ROUTINE VENIPUNCTURE (01/29/21) Problem List Initiated/Reviewed/Updated: Yes Plan: ASSESSMENT AND RECOMMENDATIONS Acute respiratory failure with hypoxia-atelectasis seems to be the most likely culprit based on CT scan imaging. Cannot rule out PE because of nondiagnostic scan. She is on broad-spectrum antibiotics in case there is an infiltrate superimposed on the atelectasis. No history of lung issues. There is probably some contribution from obesity hypoventilation and her surgery. Venous Doppler studies of both lower extremities showed no evidence of deep vein thrombosis -Aggressive pulmonary toilet -Supplement oxygen as needed, wean as able -Broad-spectrum antibiotics -Consider noninvasive ventilation if condition declines but patient is currently stable and does not require ICU level care Intra-abdominal abscess with anastomotic leak-patient is 2 weeks out from surgery. Did have drainage of the abscess. Stenting planned for tomorrow. -Surgical management per Dr. Allison Morbid obesity with BMI greater than 90-recent gastric bypass surgery Hypokalemia-resolved
[2021-03-31] MEDS: Piperacillin/Tazobactam/Dext 3.375 GM in Premix Bag 1 BAG IV SCH ×4 (02:59→19:39)
[2021-03-31] MEDS: Linezolid 600 MG in Premix Bag 1 BAG IV SCH ×2 (03:39→14:51)
[2021-03-31] MEDS: 1: AA 4.25%/Calcium/D10W/Lytes 1,000 ML with MVI, Adult with Vitamin K 10 ML, Zinc/Coppe IV SCH ×3 (03:41)
[2021-03-31] MEDS: Metoclopramide 10 MG/2 ML SDV IVPUSH SCH ×4 (03:42→21:37)
[2021-03-31] MEDS: Ondansetron 4 MG/2 ML SDV IVPUSH PRN ×3 (04:33→18:53)
[2021-03-31] MEDS: Albuterol/Ipratropium 3.0-0.5 MG/3 ML Neb Soln INH SCH ×4 (07:07→21:37)
[2021-03-31] MEDS ORDERED: Central Total Parenteral Nutrition Bag SCH (07:45)
[2021-03-31] MEDS: Levothyroxine 100 MCG Tab PO SCH (08:03)
[2021-03-31] MEDS: Heparin Sodium 5,000 Units/ML Vial SUBCUT SCH ×2 (08:04→16:11)
[2021-03-31] MEDS: DULoxetine 30 MG Cap PO SCH (09:34)
[2021-03-31] MEDS: Furosemide 20 MG/2 ML VIAL IVPUSH SCH (09:34)
[2021-03-31] MEDS: Pregabalin 75 MG Cap PO SCH ×2 (09:34→21:37)
[2021-03-31] MEDS: Scopolamine 1.5 MG Transdermal Patch TRDERM PRN (09:43)
[2021-03-31] MEDS: SCOPOLAMINE PATCH CHECK TOP SCH (10:20)
--- NOTE | 2021-03-31 12:35 | PN ---
DATE OF SERVICE: 03/31/2021 SUBJECTIVE: Elza had esophageal stent placed yesterday. She reports she has been extremely nauseated all night and has been sitting up in the chair. She did have an emesis of a dark red drainage. Vital signs have been stable. Pain has been managed. Oral intake yesterday was zero. She was n.p.o. most of the day. Urine output via Sinha catheter was 4625. JOHANN drains put out 10 and 90 respectively. REVIEW OF SYSTEMS: Remainder of review of systems negative for any pertinent positives and negatives. OBJECTIVE: GENERAL: Elza Alejandre is a pleasant 35-year-old female. She is sitting up in the chair quite stiffly. Reports she is nauseated if she moves a little bit. VITAL SIGNS: TPR is 96.4, 69, 17, blood pressure 115/60. HEENT: Negative. NECK: Supple. HEART: Regular rate and rhythm. LUNGS: Clear. ABDOMEN: Dressings dry and intact. JOHANN drains are intact. JOHANN drain 1 is 10, and JOHANN drain 2 is 90. There is no blue drainage noted. EXTREMITIES: Without peripheral edema. ASSESSMENT: 1. Diagnostic laparoscopy with drainage of intra-abdominal abscess, between esophagogastric junction and spleen. Date of procedure 03/27/2021. Surgeon: Tonny Allison MD. 2. Insertion of dual-lumen Marquez catheter, left subclavian vein. 3. Upper GI endoscopy with placement of esophageal gastric covered stent. POSTOPERATIVE DIAGNOSES: 1. 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 2. An adequate central venous access. Date of procedure 03/30/2021. Surgeon: Tonny Allison MD. PLAN: 1. Continue same TPN rate and content. 2. Check CBC, CMP, mag, phos in a.m. 3. Upper GI with Radiology present. Use water-soluble contrast, 04/01/2021, with Radiology present for evaluation and assessment of leak around the esophageal stent. 4. Discontinue Sinha. 5. Increase head of bed 30 degrees at all times. 6. Scopolamine patch, replace every 72 hours for nausea. 7. Discontinue peripheral IVs that are saline locked. 8. Continue use of incentive spirometer. 9. We will evaluate p.r.n. or in a.m. Dinora Fermin PA-C /[id number]
[2021-03-31] MEDS: MVI IV SCH ×3 (13:53)
[2021-03-31] MEDS: [UNRECOGNIZED DRUG - OTHER] IV SCH ×3 (13:53)
[2021-03-31] MEDS: VITAMIN K IV SCH ×3 (13:53)
--- NOTE | 2021-03-31 14:21 | PCM.CONSN ---
- General Info Date of Service: 03/31/21 Subjective Update: Ms. Alejandre is stable status post placement of stent yesterday by Dr. Allison. She is sleepy and lethargic this morning, denies significant shortness of breath. Continues to require higher level of supplemental oxygen. - Review of Systems General: Reports: Weakness, Fatigue. Denies: Fever, Chills Pulmonary: Reports: No Symptoms Cardiovascular: Reports: No Symptoms Gastrointestinal: Reports: Abdominal Pain. Denies: Difficulty Swallowing, Nausea, Vomiting - Patient Data Vitals - Most Recent: Last Vital Signs Temp 96.4 F L 03/31/21 07:34 Pulse 77 03/31/21 12:00 Resp 17 03/31/21 07:34 BP 115/60 03/31/21 07:34 Pulse Ox 96 03/31/21 13:11 Weight - Most Recent: 531 lb 6.4 oz I&O - Last 24 Hours: Intake & Output 03/30/21 03/31/21 03/31/21 22:59 06:59 14:59 Intake Total 550 1935 50 Output Total 62% 630 290 Balance -7% 1305 -284* Lab Results Last 24 Hours: Laboratory Results - last 24 hr 03/31/21 03/31/21 Range/Units 04:54 04:54 WBC 5.6 (4.5-11.0) K/uL RBC 4.10 (3.30-5.50) M/uL Hgb 11.5 L (12.0-15.0) g/dL Hct 37.5 (36.0-48.0) % MCV 92 (80-98) fL MCH 28 (27-31) pg MCHC 31 L (32-36) % Plt Count 263 (150-400) K/uL Sodium 142 (140-148) mmol/L Potassium 3.9 (3.6-5.2) mmol/L Chloride 103 (100-108) mmol/L Carbon Dioxide 30 (21-32) mmol/L Anion Gap 8.7 (5.0-14.0) mmol/L BUN 6 L (7-18) mg/dL Creatinine 0.8 (0.6-1.0) mg/dL Est Cr Clr Drug Dosing 80.42 mL/min Estimated GFR (MDRD) > 60 (>60) Glucose 184 H (74-106) mg/dL Calcium 8.0 L (8.5-10.1) mg/dL Phosphorus 3.4 (2.5-4.9) mg/dL Magnesium 2.5 H (1.8-2.4) mg/dL Total Bilirubin 0.3 (0.2-1.0) mg/dL AST 21 (15-37) U/L ALT 34 (12-78) U/L Alkaline Phosphatase 59 (46-116) U/L NT-Pro-B Natriuret Pep 236 H (5-125) pg/mL Total Protein 6.5 (6.4-8.2) g/dL Albumin 2.3 L (3.4-5.0) g/dL Globulin 4.2 H (2.3-3.5) g/dL Albumin/Globulin Ratio 0.6 L (1.2-2.2) Med Orders - Current: Current Medications Albuterol/Ipratropium (Albuterol/Ipratropium 3.0-0.5 Mg/3 Ml Neb Soln) 3 ml INH QIDRT [facility] Last Admin: 03/31/21 10:52 Dose: 3 ml Documented by: Albuterol/Ipratropium (Albuterol/Ipratropium 3.0-0.5 Mg/3 Ml Neb Soln) 3 ml INH ASDIRECTED PRN PRN Reason: BREATHING Last Admin: 03/28/21 00:21 Dose: 3 ml Documented by: Cyclobenzaprine HCl (Cyclobenzaprine 10 Mg Tab) 10 mg PO Q8H PRN PRN Reason: Muscle Spasm Diphenhydramine HCl (Diphenhydramine 50 Mg/Ml Sdv) 50 mg IVPUSH Q4H PRN PRN Reason: ITCHING Duloxetine HCl (Duloxetine 30 Mg Cap) 60 mg PO DAILY [facility] Last Admin: 03/31/21 09:34 Dose: 60 mg Documented by: Furosemide (Furosemide 20 Mg/2 Ml Vial) 20 mg IVPUSH DAILY [facility] Last Admin: 03/31/21 09:34 Dose: 20 mg Documented by: Heparin Sodium (Porcine) (Heparin Sodium 5,000 Units/Ml Vial) 5,000 units SUBCUT Q8H [facility] Last Admin: 03/31/21 08:04 Dose: 5,000 units Documented by: Hydroxyzine HCl (Hydroxyzine Hcl 100 Mg/2 Ml Sdv) 100 mg IM Q4H PRN PRN Reason: breakthrough pain Last Admin: 03/30/21 21:55 Dose: 100 mg Documented by: Piperacillin/Tazobactam/ (Dextrose 3.375 gm/ Premix) 50 mls @ 100 mls/hr IV Q6H [facility] Last Admin: 03/31/21 13:29 Dose: 100 mls/hr Documented by: Linezolid 600 mg/ Premix 300 mls @ 300 mls/hr IV Q12H [facility] Last Admin: 03/31/21 03:39 Dose: 300 mls/hr Documented by: Lactated Ringer's (Ringers, Lactated) 1,000 mls @ 20 mls/hr IV ASDIRECTED [facility] Last Admin: 03/31/21 03:44 Dose: 20 mls/hr Documented by: Multivitamins/Minerals 10 ml/Zinc 1 ml/ Amino Acids/Electrolytes/Dextrose 2,011 mls @ 100 mls/hr IV .BY DURATION [facility] Last Admin: 03/31/21 13:53 Dose: 100 mls/hr Documented by: Amino Acids/Electrolytes/Dextrose (Clinimix E 4.25/5) 2,000 mls @ 100 mls/hr IV .BY DURATION [facility] Labetalol HCl (Labetalol 20 Mg/4 Ml Syringe) 5 mg IVPUSH Q5M PRN PRN Reason: SBP over 160 OR DBP over 95 Levothyroxine Sodium (Levothyroxine 100 Mcg Tab) 100 mcg PO DAILY@0730 [facility] Last Admin: 03/31/21 08:03 Dose: 100 mcg Documented by: Metoclopramide HCl (Metoclopramide 10 Mg/2 Ml Sdv) 10 mg IVPUSH Q6H [facility] Last Admin: 03/31/21 09:35 Dose: 10 mg Documented by: Non-Formulary Medication (Central Total Parenteral Nutrition Bag) 1,000 ml .XX .Continue Order [facility] Stop: 03/31/21 18:00 Scopolamine Patch (Check) 1 each TOP DAILY [facility] Last Admin: 03/31/21 10:20 Dose: Not Given Documented by: Ondansetron HCl (Ondansetron 4 Mg/2 Ml Sdv) 4 mg IVPUSH Q4H PRN PRN Reason: Nausea/Vomiting Last Admin: 03/31/21 12:18 Dose: 4 mg Documented by: Pantoprazole Sodium (Pantoprazole 40 Mg Vial) 40 mg IVPUSH Q24H [facility] Last Admin: 03/30/21 16:22 Dose: 40 mg Documented by: Pregabalin (Pregabalin 75 Mg Cap) 150 mg PO BID [facility] Last Admin: 03/31/21 09:34 Dose: 150 mg Documented by: Scopolamine (Scopolamine 1.5 Mg Transdermal Patch) 1.5 mg TRDERM Q72H PRN PRN Reason: Nausea Last Admin: 03/31/21 09:43 Dose: 1.5 mg Documented by: Discontinued Medications Bupivacaine HCl (Bupivacaine 0.5% 50 Ml Mdv) Confirm Administered Dose 50 ml .ROUTE .STK-MED ONE Stop: 03/27/21 09:15 Bupivacaine HCl (Bupivacaine 0.5% 50 Ml Mdv) Confirm Administered Dose 50 ml .ROUTE .STK-MED ONE Stop: 03/30/21 08:33 Ropivacaine 60 ml/Dexamethasone 8 mg/Epinephrine HCl 0.4 mg/ Sodium Chloride 17.6 ml 0 ml NERVRT ASDIRECTED [facility] Last Admin: 03/27/21 11:39 Dose: 80 syringe Documented by: Cyanocobalamin (Cyanocobalamin (Vitamin B12) 1,000 Mcg/Ml Sdv) 1,000 mcg IM ONETIME ONE Stop: 03/29/21 09:01 Last Admin: 03/29/21 08:42 Dose: 1,000 mcg Documented by: Dexamethasone (Dexamethasone 4 Mg/Ml Sdv) Confirm Administered Dose 4 mg .ROUTE .STK-MED ONE Stop: 03/27/21 07:12 Dexamethasone (Dexamethasone 4 Mg/Ml Sdv) Confirm Administered Dose 4 mg .ROUTE .STK-MED ONE Stop: 03/30/21 09:25 Droperidol (Droperidol 5 Mg/2 Ml Sdv) Confirm Administered Dose 5 mg .ROUTE .STK-MED ONE Stop: 03/30/21 13:19 Fentanyl (Fentanyl 250 Mcg/5 Ml Sdv) Confirm Administered Dose 250 mcg .ROUTE .STK-MED ONE Stop: 03/27/21 07:12 Fentanyl (Fentanyl 250 Mcg/5 Ml Sdv) Confirm Administered Dose 250 mcg .ROUTE .STK-MED ONE Stop: 03/27/21 12:15 Fentanyl (Fentanyl 250 Mcg/5 Ml Sdv) Confirm Administered Dose 250 mcg .ROUTE .STK-MED ONE Stop: 03/30/21 09:25 Furosemide (Furosemide 20 Mg/2 Ml Vial) 2 mg IVPUSH DAILY [facility] Glycopyrrolate (Glycopyrrolate 0.2 Mg/Ml 5 Ml Mdv) Confirm Administered Dose 1 mg .ROUTE .STK-MED ONE Stop: 03/27/21 07:12 Glycopyrrolate (Glycopyrrolate 0.2 Mg/Ml 5 Ml Mdv) Confirm Administered Dose 1 mg .ROUTE .STK-MED ONE Stop: 03/30/21 09:25 Heparin Sodium (Porcine) (Heparin Sodium 100 Units/Ml 5 Ml Syringe) Confirm Administered Dose 1,500 units .ROUTE .STK-MED ONE Stop: 03/30/21 08:34 Last Admin: 03/30/21 14:08 Dose: 1,500 units Documented by: Lactated Ringer's (Ringers, Lactated) 500 mls @ 1,000 mls/hr IV ONETIME ONE Stop: 03/27/21 08:29 Last Admin: 03/27/21 08:19 Dose: 1,000 mls/hr Documented by: Lactated Ringer's (Ringers, Lactated) 1,000 mls @ 250 mls/hr IV ASDIRECTED [facility] Last Admin: 03/27/21 10:15 Dose: 250 mls/hr Documented by: Piperacillin/Tazobactam/ (Dextrose 3.375 gm/ Premix) 50 mls @ 100 mls/hr IV ONETIME ONE Stop: 03/27/21 08:29 Last Admin: 03/27/21 08:19 Dose: 100 mls/hr Documented by: Aztreonam 1 gm/ Sodium (Chloride) 50 mls @ 100 mls/hr IV ONCALL ONE Stop: 03/27/21 09:29 Last Admin: 03/27/21 10:37 Dose: 100 mls/hr Documented by: Ketamine HCl 50 mg/ Sodium (Chloride) 50 mls @ 15.72 mls/hr IV ASDIRECTED [facility] Potassium Acetate 20 meq/Lidocaine HCl 2 ml/ Sodium Chloride 112 mls @ 56 mls/hr IV Q2H [facility] Stop: 03/27/21 12:59 Last Admin: 03/27/21 14:42 Dose: 56 mls/hr Documented by: Lactated Ringer's (Ringers, Lactated) 1,000 mls @ 100 mls/hr IV ASDIRECTED [facility] Last Admin: 03/30/21 04:39 Dose: 200 mls/hr Documented by: Multivitamins/Minerals 10 ml/Thiamine HCl 200 mg/ Zinc 1 ml / Lactated Ringer's 1,013 mls @ 200 mls/hr IV DAILY@1600 [facility] Stop: 03/28/21 21:04 Last Admin: 03/28/21 16:37 Dose: 200 mls/hr Documented by: Magnesium Sulfate (Magnesium Sulfate In Water 2 Gm/50 Ml) 2 gm in 50 mls @ 25 mls/hr IV Q6HR [facility] Stop: 03/30/21 11:59 Last Admin: 03/30/21 09:44 Dose: 25 mls/hr Documented by: Potassium Phosphate 15 mmol/ (Premix) 250 mls @ 125 mls/hr IV Q2H [facility] Stop: 03/28/21 01:59 Last Admin: 03/28/21 01:37 Dose: 125 mls/hr Documented by: Potassium Phosphate 15 mmole/ (Sodium Chloride) 255 mls @ 125 mls/hr IV Q2H [facility] Stop: 03/28/21 13:59 Last Admin: 03/28/21 12:45 Dose: 125 mls/hr Documented by: Sodium Chloride (Normal Saline) 100 mls @ 3 mls/sec IV ASDIRECTED [facility] Stop: 03/28/21 13:00 Last Admin: 03/28/21 13:08 Dose: 3 mls/sec Documented by: Potassium Phosphate 15 mmole/ (Sodium Chloride) 255 mls @ 125 mls/hr IV Q2H [facility] Stop: 03/29/21 17:59 Last Admin: 03/29/21 17:00 Dose: 125 mls/hr Documented by: Potassium Chloride 20 meq/Lidocaine HCl 2 ml/ Sodium Chloride 112 mls @ 56 mls/hr IV ONETIME ONE Stop: 03/30/21 10:29 Last Admin: 03/30/21 09:39 Dose: 56 mls/hr Documented by: Potassium Phosphate 15 mmole/ (Sodium Chloride) 255 mls @ 125 mls/hr IV Q2H [facility] Stop: 03/30/21 14:59 Last Admin: 03/30/21 16:18 Dose: 125 mls/hr Documented by: Multivitamins/Minerals 10 ml/Zinc 1 ml/ Amino Acids/Electrolytes/Dextrose 1,011 mls @ 100 mls/hr IV .BY DURATION [facility] Stop: 03/31/21 13:30 Last Admin: 03/30/21 17:41 Dose: 100 mls/hr Documented by: Amino Acids/Electrolytes/Dextrose (Clinimix E 4.25/10) 1,000 mls @ 100 mls/hr IV .BY DURATION [facility] Stop: 03/31/21 13:30 Last Admin: 03/31/21 03:41 Dose: 100 mls/hr Documented by: Iopamidol (Iopamidol 755 Mg/Ml 100 Ml Bottle) 100 ml IV . DIRECTED [facility] Stop: 03/28/21 13:00 Last Admin: 03/28/21 13:08 Dose: 100 ml Documented by: Ketamine HCl (Ketamine 500 Mg/5 Ml Mdv) 26 mg IV ASDIRECTED [facility] Lidocaine/Epinephrine (Lidocaine 1% With Epinephrine 1:100,000 50 Ml Mdv) Confirm Administered Dose 50 ml .ROUTE .STK-MED ONE Stop: 03/27/21 09:15 Lidocaine/Epinephrine (Lidocaine 1% With Epinephrine 1:100,000 50 Ml Mdv) Confirm Administered Dose 50 ml .ROUTE .STK-MED ONE Stop: 03/30/21 08:34 Linezolid (Linezolid 600 Mg/300 Ml Bag) 600 mg IV .STK-MED ONE Stop: 03/27/21 12:34 Last Admin: 03/27/21 12:33 Dose: 600 mg Documented by: Meperidine HCl (Meperidine 300 Mg/30 Ml Document Control Manager Vial) 0 mg IV ASDIRECTED PRN; Protocol PRN Reason: PAIN Last Admin: 03/27/21 10:12 Dose: 300 mg Documented by: Meropenem (Meropenem 500 Mg Sdv) Confirm Administered Dose 500 mg .ROUTE .STK- MED ONE Stop: 03/27/21 09:15 Metoclopramide HCl (Metoclopramide 10 Mg/2 Ml Sdv) 10 mg IVPUSH Q6H PRN PRN Reason: NAUSEA NOT CONTROL BY ZOFRAN Metoclopramide HCl (Metoclopramide 10 Mg/2 Ml Sdv) Confirm Administered Dose 10 mg .ROUTE .STK-MED ONE Stop: 03/30/21 13:19 Naloxone HCl (Naloxone 0.4 Mg/Ml Sdv) 0.1 mg IV ASDIRECTED PRN PRN Reason: decreased respiratory rate Neostigmine Methylsulfate (Neostigmine Methylsulfate 1 Mg/Ml 5 Ml Syringe) Confirm Administered Dose 5 mg .ROUTE .STK-MED ONE Stop: 03/27/21 07:12 Neostigmine Methylsulfate (Neostigmine Methylsulfate 1 Mg/Ml 5 Ml Syringe) Confirm Administered Dose 5 mg .ROUTE .STK-MED ONE Stop: 03/30/21 09:25 Ondansetron HCl (Ondansetron 4 Mg/2 Ml Sdv) Confirm Administered Dose 4 mg .ROUTE .STK-MED ONE Stop: 03/27/21 07:12 Ondansetron HCl (Ondansetron 4 Mg/2 Ml Sdv) Confirm Administered Dose 4 mg .ROUTE .STK-MED ONE Stop: 03/30/21 09:25 Piperacillin Sod/Tazobactam Sod (Piperacillin/Tazobactam 3.375 Gm Vial) Confirm Administered Dose 3.375 gm .ROUTE .STK-MED ONE Stop: 03/27/21 11:10 Piperacillin Sod/Tazobactam Sod (Piperacillin/Tazobactam 3.375 Gm Vial) 3.375 gm .XX .STK-MED ONE Stop: 03/27/21 11:53 Last Admin: 03/27/21 11:52 Dose: 3.375 gm Documented by: Propofol (Propofol 200 Mg/20 Ml Sdv) Confirm Administered Dose 200 mg .ROUTE .STK-MED ONE Stop: 03/27/21 07:12 Propofol (Propofol 200 Mg/20 Ml Sdv) Confirm Administered Dose 200 mg .ROUTE .STK-MED ONE Stop: 03/30/21 09:25 Rocuronium [place] (Rocuronium 50 Mg/5 Ml Vial) Confirm Administered Dose 50 mg .ROUTE .STK-MED ONE Stop: 03/27/21 07:12 Rocuronium [place] (Rocuronium 50 Mg/5 Ml Vial) Confirm Administered Dose 50 mg .ROUTE .STK-MED ONE Stop: 03/27/21 11:46 Rocuronium [place] (Rocuronium 50 Mg/5 Ml Vial) Confirm Administered Dose 50 mg .ROUTE .STK-MED ONE Stop: 03/30/21 09:25 Sodium Chloride (Sodium Chloride 0.9% 10 Ml Syringe) 10 ml FLUSH ASDIRECTED PRN PRN Reason: Keep Vein Open Stop: 03/28/21 13:00 Succinylcholine Chloride (Succinylcholine 200 Mg/10 Ml Mdv) Confirm Administered Dose 200 mg .ROUTE .STK-MED ONE Stop: 03/27/21 07:12 Succinylcholine Chloride (Succinylcholine 200 Mg/10 Ml Mdv) Confirm Administered Dose 200 mg .ROUTE .STK-MED ONE Stop: 03/30/21 11:53 Sugammadex Sodium (Sugammadex Sodium 200 Mg/2 Ml Vial) Confirm Administered Dose 200 mg .ROUTE .STK-MED ONE Stop: 03/27/21 11:41 - Exam Quality Assessment: Supplemental Oxygen, DVT Prophylaxis Central Line Total Time: 0Days 23Hours General: Alert, Oriented, Cooperative, Moderate Distress Lungs: Clear to Auscultation, Normal Respiratory Effort Cardiovascular: Regular Rate, Regular Rhythm, No Murmurs GI/Abdominal Exam: Soft, No Organomegaly, Tender. No: Distended, Guarding, Rigid, Rebound Extremities: Non-Tender, No Pedal Edema Sepsis Event Note - Evaluation Sepsis Screening Result: No Definite Risk - Focused Exam Vital Signs: Vital Signs Temp Pulse Resp BP Pulse Ox 03/31/21 13:11 96 03/31/21 12:00 77 95 03/31/21 10:53 70 03/31/21 07:34 96.4 F L 69 17 115/60 94 L 03/31/21 07:14 97 03/31/21 07:07 68 03/31/21 03:01 95.2 F L 67 18 105/65 91 L Consult PN Assessment/Plan Procedures: Procedures BLOOD TYPING SEROLOGIC ABO (01/29/21) BLOOD TYPING SEROLOGIC RH(D) (01/29/21) RBC ANTIBODY SCREEN (01/29/21) ROUTINE VENIPUNCTURE (01/29/21) Problem List Initiated/Reviewed/Updated: Yes Plan: ASSESSMENT AND RECOMMENDATIONS Acute respiratory failure with hypoxia-atelectasis seems to be the most likely culprit based on CT scan imaging. Cannot rule out PE because of nondiagnostic scan. She is on broad-spectrum antibiotics in case there is an infiltrate superimposed on the atelectasis. No history of lung issues. There is probably some contribution from obesity hypoventilation and her surgery. Venous Doppler studies of both lower extremities showed no evidence of deep vein thrombosis -Aggressive pulmonary toilet -Supplement oxygen as needed, wean as able -Broad-spectrum antibiotics -Consider noninvasive ventilation if condition declines but patient is currently stable and does not require ICU level care Intra-abdominal abscess with anastomotic leak-patient is 2 weeks out from surgery. Did have drainage of the abscess. Stenting planned for tomorrow. -Surgical management per Dr. Allison Morbid obesity with BMI greater than 90-recent gastric bypass surgery
[2021-03-31] MEDS: Pantoprazole 40 MG Vial IVPUSH SCH (16:12)
[2021-04-01] MEDS: Heparin Sodium 5,000 Units/ML Vial SUBCUT SCH ×3 (00:09→16:01)
[2021-04-01] MEDS: Piperacillin/Tazobactam/Dext 3.375 GM in Premix Bag 1 BAG IV SCH (02:34)
[2021-04-01] MEDS: Linezolid 600 MG in Premix Bag 1 BAG IV SCH (02:35)
[2021-04-01] MEDS: Metoclopramide 10 MG/2 ML SDV IVPUSH SCH ×5 (03:39→21:51)
[2021-04-01] MEDS: Albuterol/Ipratropium 3.0-0.5 MG/3 ML Neb Soln INH SCH ×4 (07:20→20:42)
[2021-04-01] MEDS: Levothyroxine 100 MCG Tab PO SCH (07:27)
[2021-04-01] MEDS ORDERED: LORazepam 2 MG/ML SDV IVPUSH PRN (07:56)
[2021-04-01] MEDS ORDERED: Central Total Parenteral Nutrition Bag SCH (08:00)
[2021-04-01] MEDS: Pregabalin 75 MG Cap PO SCH ×2 (08:32→20:42)
[2021-04-01] MEDS: Ampicillin/Sulbactam Na 3 GM in Sodium Chloride 0.9% 100 ML IV SCH ×3 (08:32→20:42)
[2021-04-01] MEDS: Lactobacillus Rhamnosus GG (Probiotic) Cap PO SCH ×2 (08:32→20:43)
[2021-04-01] MEDS: DULoxetine 30 MG Cap PO SCH (08:33)
[2021-04-01] MEDS: Furosemide 20 MG/2 ML VIAL IVPUSH SCH (08:33)
[2021-04-01] MEDS ORDERED: Iopamidol 612 MG/ML 100 ML Bottle ONE (09:00)
[2021-04-01] MEDS: Ondansetron 4 MG/2 ML SDV IVPUSH PRN (10:23)
[2021-04-01] MEDS: MVI IV SCH ×3 (10:24)
[2021-04-01] MEDS: [UNRECOGNIZED DRUG - OTHER] IV SCH ×3 (10:24)
[2021-04-01] MEDS: VITAMIN K IV SCH ×3 (10:24)
--- NOTE | 2021-04-01 10:24 | CR ---
[facility]I CLINICAL HISTORY: Gastroesophageal stent, previous bariatric surgery FINDINGS: Pulmonary film shows a drainage tube in place. There is a stent from the level of the GE junction to the gastrojejunostomy. Patient swallowed water-soluble contrast. The esophagus had a normal contour. There is slight narrowing just above the stent which may represent some soft tissue swelling. There is no obstruction. Delayed upright images show contrast to through the stent and into small intestine. Impression: Patent gastroesophageal stent with no active evidence of extravasation Mild soft tissue fullness just proximal to the stent may represent some swelling. There is no obstruction
[2021-04-01] MEDS: SCOPOLAMINE PATCH CHECK TOP SCH (10:37)
--- NOTE | 2021-04-01 12:57 | PN ---
DATE OF SERVICE: 04/01/2021 SUBJECTIVE: Elza continues to report nausea. She thinks it is a little bit better. Vital signs have been stable. Oral intake 30. Urine output 2200. Pain is controlled. She has no other questions or concerns today. OBJECTIVE: GENERAL: Elza Alejandre is a pleasant 35-year-old female. VITAL SIGNS: TPR is 96.2, 83, 16, blood pressure 122/64. HEENT: Negative. NECK: Supple. HEART: Regular rate and rhythm. LUNGS: Clear. ABDOMEN: Dressings dry and intact. JOHANN drains have put out 12 and 15 mL of a serosanguineous drainage. EXTREMITIES: Without peripheral edema. ASSESSMENT: 1. Diagnostic laparoscopy with drainage of intraabdominal abscess between esophagogastric junction and spleen. Date of procedure: 03/27/2021. Surgeon: Tonny Allison MD. 2. Insertion of dual lumen Marquez catheter, left subclavian vein, and upper GI endoscopy with placement of esophageal covered stent. POSTOPERATIVE DIAGNOSES: 1. Leak at the esophageal junction portion, esophagojejunostomy portion of the duodenal switch. 2. Inadequate central vein access. 3. Date of procedure: 03/30/2021. Surgeon: Tonny Allison MD. 4. TPN nutrition. PLAN: 1. Verbal order given to call Tonny Allison MD, when upper GI is done. 2. Rx Ativan 0.5 mg IV q.3 hours p.r.n. nausea. 3. Culturelle take 2 oral b.i.d. if tolerated. 4. Unasyn 3 g IV q.6 hours. 5. Continue same TPN rate and content. 6. Discontinue Zyvox and Zosyn. 7. Check CBC, CMP, and phos in a.m. 8. Continue use of incentive spirometer and ambulation. 9. We will evaluate p.r.n. or in a.m. Dinora Fermin PA-C /[id number]
--- NOTE | 2021-04-01 13:06 | PCM.CONSN ---
- General Info Date of Service: 04/01/21 Subjective Update: Ms. Alejandre has been stable since yesterday. She has been up walking and also spending time in the chair. Pain control at the present time seems to be adequate and she is otherwise had good vital signs and no significant temperature elevation. She continues to require supplemental oxygen although need for this has been decreasing. Functional Status: Reports: Ambulating - Review of Systems General: Reports: Weakness, Fatigue. Denies: Fever, Chills Pulmonary: Reports: Shortness of Breath. Denies: Pleuritic Chest Pain, Cough, Sputum, Hemoptysis, Wheezing Cardiovascular: Reports: Dyspnea on Exertion. Denies: Chest Pain, Palpitations, Orthopnea, PND, Edema, Lightheadedness Gastrointestinal: Reports: Abdominal Pain. Denies: Difficulty Swallowing, Hematochezia, Melena, Nausea, Vomiting Genitourinary: Reports: No Symptoms - Patient Data Vitals - Most Recent: Last Vital Signs Temp 96.1 F L 04/01/21 11:00 Pulse 79 04/01/21 11:00 Resp 20 04/01/21 11:00 BP 132/70 04/01/21 11:00 Pulse Ox 90 L 04/01/21 12:44 Weight - Most Recent: 533 lb 3.2 oz I&O - Last 24 Hours: Intake & Output 03/31/21 04/01/21 04/01/21 22:59 06:59 14:59 Intake Total 1424 1753 90 Output Total 607 420 500 Balance 817 1333 -410 Lab Results Last 24 Hours: Laboratory Results - last 24 hr 04/01/21 04/01/21 Range/Units 04:35 04:35 WBC 6.3 (4.5-11.0) K/uL RBC 4.29 (3.30-5.50) M/uL Hgb 12.0 (12.0-15.0) g/dL Hct 39.5 (36.0-48.0) % MCV 92 (80-98) fL MCH 28 (27-31) pg MCHC 30 L (32-36) % Plt Count 282 (150-400) K/uL Sodium 143 (140-148) mmol/L Potassium 3.9 (3.6-5.2) mmol/L Chloride 103 (100-108) mmol/L Carbon Dioxide 30 (21-32) mmol/L Anion Gap 9.9 (5.0-14.0) mmol/L BUN 10 D (7-18) mg/dL Creatinine 0.9 (0.6-1.0) mg/dL Est Cr Clr Drug Dosing 71.48 mL/min Estimated GFR (MDRD) > 60 (>60) Glucose 160 H (74-106) mg/dL Calcium 8.4 L (8.5-10.1) mg/dL Phosphorus 4.0 (2.5-4.9) mg/dL Magnesium 2.1 (1.8-2.4) mg/dL Total Bilirubin 0.4 (0.2-1.0) mg/dL AST 23 (15-37) U/L ALT 36 (12-78) U/L Alkaline Phosphatase 60 (46-116) U/L Total Protein 6.7 (6.4-8.2) g/dL Albumin 2.5 L (3.4-5.0) g/dL Globulin 4.2 H (2.3-3.5) g/dL Albumin/Globulin Ratio 0.6 L (1.2-2.2) Med Orders - Current: Current Medications Albuterol/Ipratropium (Albuterol/Ipratropium 3.0-0.5 Mg/3 Ml Neb Soln) 3 ml INH QIDRT [facility] Last Admin: 04/01/21 10:47 Dose: 3 ml Documented by: Albuterol/Ipratropium (Albuterol/Ipratropium 3.0-0.5 Mg/3 Ml Neb Soln) 3 ml INH ASDIRECTED PRN PRN Reason: BREATHING Last Admin: 03/28/21 00:21 Dose: 3 ml Documented by: Cyclobenzaprine HCl (Cyclobenzaprine 10 Mg Tab) 10 mg PO Q8H PRN PRN Reason: Muscle Spasm Last Admin: 04/01/21 10:23 Dose: 10 mg Documented by: Diphenhydramine HCl (Diphenhydramine 50 Mg/Ml Sdv) 50 mg IVPUSH Q4H PRN PRN Reason: ITCHING Duloxetine HCl (Duloxetine 30 Mg Cap) 60 mg PO DAILY [facility] Last Admin: 04/01/21 08:33 Dose: 60 mg Documented by: Furosemide (Furosemide 20 Mg/2 Ml Vial) 20 mg IVPUSH DAILY [facility] Last Admin: 04/01/21 08:33 Dose: 20 mg Documented by: Heparin Sodium (Porcine) (Heparin Sodium 5,000 Units/Ml Vial) 5,000 units SUBCUT Q8H [facility] Last Admin: 04/01/21 07:28 Dose: 5,000 units Documented by: Hydroxyzine HCl (Hydroxyzine Hcl 100 Mg/2 Ml Sdv) 100 mg IM Q4H PRN PRN Reason: breakthrough pain Last Admin: 03/30/21 21:55 Dose: 100 mg Documented by: Lactated Ringer's (Ringers, Lactated) 1,000 mls @ 20 mls/hr IV ASDIRECTED [facility] Last Admin: 03/31/21 03:44 Dose: 20 mls/hr Documented by: Multivitamins/Minerals 10 ml/Zinc 1 ml/ Amino Acids/Electrolytes/Dextrose 2,011 mls @ 100 mls/hr IV .BY DURATION [facility] Last Admin: 04/01/21 10:24 Dose: 100 mls/hr Documented by: Amino Acids/Electrolytes/Dextrose (Clinimix E 4.25/5) 2,000 mls @ 100 mls/hr IV .BY DURATION [facility] Ampicillin Sodium/Sulbactam (Sodium 3 gm/ Sodium Chloride) 100 mls @ 200 mls/hr IV Q6H [facility] Last Admin: 04/01/21 08:32 Dose: 200 mls/hr Documented by: Labetalol HCl (Labetalol 20 Mg/4 Ml Syringe) 5 mg IVPUSH Q5M PRN PRN Reason: SBP over 160 OR DBP over 95 Lactobacillus Rhamnosus (Lactobacillus Rhamnosus Gg (Probiotic) Cap) 2 cap PO BID [facility] Last Admin: 04/01/21 08:32 Dose: 2 cap Documented by: Levothyroxine Sodium (Levothyroxine 100 Mcg Tab) 100 mcg PO DAILY@0730 [facility] Last Admin: 04/01/21 07:27 Dose: 100 mcg Documented by: Lorazepam (Lorazepam 2 Mg/Ml Sdv) 0.5 mg IVPUSH Q3H PRN PRN Reason: Nausea Last Admin: 04/01/21 10:23 Dose: 0.5 mg Documented by: Metoclopramide HCl (Metoclopramide 10 Mg/2 Ml Sdv) 10 mg IVPUSH Q6H [facility] Last Admin: 04/01/21 10:37 Dose: Not Given Documented by: Scopolamine Patch (Check) 1 each TOP DAILY [facility] Last Admin: 04/01/21 10:37 Dose: Not Given Documented by: Ondansetron HCl (Ondansetron 4 Mg/2 Ml Sdv) 4 mg IVPUSH Q4H PRN PRN Reason: Nausea/Vomiting Last Admin: 04/01/21 10:23 Dose: 4 mg Documented by: Pantoprazole Sodium (Pantoprazole 40 Mg Vial) 40 mg IVPUSH Q24H [facility] Last Admin: 03/31/21 16:12 Dose: 40 mg Documented by: Pregabalin (Pregabalin 75 Mg Cap) 150 mg PO BID [facility] Last Admin: 04/01/21 08:32 Dose: 150 mg Documented by: Scopolamine (Scopolamine 1.5 Mg Transdermal Patch) 1.5 mg TRDERM Q72H PRN PRN Reason: Nausea Last Admin: 03/31/21 09:43 Dose: 1.5 mg Documented by: Discontinued Medications Bupivacaine HCl (Bupivacaine 0.5% 50 Ml Mdv) Confirm Administered Dose 50 ml .ROUTE .STK-MED ONE Stop: 03/27/21 09:15 Bupivacaine HCl (Bupivacaine 0.5% 50 Ml Mdv) Confirm Administered Dose 50 ml .ROUTE .STK-MED ONE Stop: 03/30/21 08:33 Ropivacaine 60 ml/Dexamethasone 8 mg/Epinephrine HCl 0.4 mg/ Sodium Chloride 17.6 ml 0 ml NERVRT ASDIRECTED [facility] Last Admin: 03/27/21 11:39 Dose: 80 syringe Documented by: Cyanocobalamin (Cyanocobalamin (Vitamin B12) 1,000 Mcg/Ml Sdv) 1,000 mcg IM ONETIME ONE Stop: 03/29/21 09:01 Last Admin: 03/29/21 08:42 Dose: 1,000 mcg Documented by: Dexamethasone (Dexamethasone 4 Mg/Ml Sdv) Confirm Administered Dose 4 mg .ROUTE .STK-MED ONE Stop: 03/27/21 07:12 Dexamethasone (Dexamethasone 4 Mg/Ml Sdv) Confirm Administered Dose 4 mg .ROUTE .STK-MED ONE Stop: 03/30/21 09:25 Droperidol (Droperidol 5 Mg/2 Ml Sdv) Confirm Administered Dose 5 mg .ROUTE .STK-MED ONE Stop: 03/30/21 13:19 Fentanyl (Fentanyl 250 Mcg/5 Ml Sdv) Confirm Administered Dose 250 mcg .ROUTE .STK-MED ONE Stop: 03/27/21 07:12 Fentanyl (Fentanyl 250 Mcg/5 Ml Sdv) Confirm Administered Dose 250 mcg .ROUTE .STK-MED ONE Stop: 03/27/21 12:15 Fentanyl (Fentanyl 250 Mcg/5 Ml Sdv) Confirm Administered Dose 250 mcg .ROUTE .STK-MED ONE Stop: 03/30/21 09:25 Furosemide (Furosemide 20 Mg/2 Ml Vial) 2 mg IVPUSH DAILY [facility] Glycopyrrolate (Glycopyrrolate 0.2 Mg/Ml 5 Ml Mdv) Confirm Administered Dose 1 mg .ROUTE .STK-MED ONE Stop: 03/27/21 07:12 Glycopyrrolate (Glycopyrrolate 0.2 Mg/Ml 5 Ml Mdv) Confirm Administered Dose 1 mg .ROUTE .STK-MED ONE Stop: 03/30/21 09:25 Heparin Sodium (Porcine) (Heparin Sodium 100 Units/Ml 5 Ml Syringe) Confirm Administered Dose 1,500 units .ROUTE .STK-MED ONE Stop: 03/30/21 08:34 Last Admin: 03/30/21 14:08 Dose: 1,500 units Documented by: Lactated Ringer's (Ringers, Lactated) 500 mls @ 1,000 mls/hr IV ONETIME ONE Stop: 03/27/21 08:29 Last Admin: 03/27/21 08:19 Dose: 1,000 mls/hr Documented by: Lactated Ringer's (Ringers, Lactated) 1,000 mls @ 250 mls/hr IV ASDIRECTED [facility] Last Admin: 03/27/21 10:15 Dose: 250 mls/hr Documented by: Piperacillin/Tazobactam/ (Dextrose 3.375 gm/ Premix) 50 mls @ 100 mls/hr IV ONETIME ONE Stop: 03/27/21 08:29 Last Admin: 03/27/21 08:19 Dose: 100 mls/hr Documented by: Aztreonam 1 gm/ Sodium (Chloride) 50 mls @ 100 mls/hr IV ONCALL ONE Stop: 03/27/21 09:29 Last Admin: 03/27/21 10:37 Dose: 100 mls/hr Documented by: Ketamine HCl 50 mg/ Sodium (Chloride) 50 mls @ 15.72 mls/hr IV ASDIRECTED [facility] Potassium Acetate 20 meq/Lidocaine HCl 2 ml/ Sodium Chloride 112 mls @ 56 mls/hr IV Q2H [facility] Stop: 03/27/21 12:59 Last Admin: 03/27/21 14:42 Dose: 56 mls/hr Documented by: Lactated Ringer's (Ringers, Lactated) 1,000 mls @ 100 mls/hr IV ASDIRECTED [facility] Last Admin: 03/30/21 04:39 Dose: 200 mls/hr Documented by: Piperacillin/Tazobactam/ (Dextrose 3.375 gm/ Premix) 50 mls @ 100 mls/hr IV Q6H [facility] Last Admin: 04/01/21 02:34 Dose: 100 mls/hr Documented by: Linezolid 600 mg/ Premix 300 mls @ 300 mls/hr IV Q12H [facility] Last Admin: 04/01/21 02:35 Dose: 300 mls/hr Documented by: Multivitamins/Minerals 10 ml/Thiamine HCl 200 mg/ Zinc 1 ml / Lactated Ringer's 1,013 mls @ 200 mls/hr IV DAILY@1600 [facility] Stop: 03/28/21 21:04 Last Admin: 03/28/21 16:37 Dose: 200 mls/hr Documented by: Magnesium Sulfate (Magnesium Sulfate In Water 2 Gm/50 Ml) 2 gm in 50 mls @ 25 mls/hr IV Q6HR [facility] Stop: 03/30/21 11:59 Last Admin: 03/30/21 09:44 Dose: 25 mls/hr Documented by: Potassium Phosphate 15 mmol/ (Premix) 250 mls @ 125 mls/hr IV Q2H [facility] Stop: 03/28/21 01:59 Last Admin: 03/28/21 01:37 Dose: 125 mls/hr Documented by: Potassium Phosphate 15 mmole/ (Sodium Chloride) 255 mls @ 125 mls/hr IV Q2H [facility] Stop: 03/28/21 13:59 Last Admin: 03/28/21 12:45 Dose: 125 mls/hr Documented by: Sodium Chloride (Normal Saline) 100 mls @ 3 mls/sec IV ASDIRECTED [facility] Stop: 03/28/21 13:00 Last Admin: 03/28/21 13:08 Dose: 3 mls/sec Documented by: Potassium Phosphate 15 mmole/ (Sodium Chloride) 255 mls @ 125 mls/hr IV Q2H [facility] Stop: 03/29/21 17:59 Last Admin: 03/29/21 17:00 Dose: 125 mls/hr Documented by: Potassium Chloride 20 meq/Lidocaine HCl 2 ml/ Sodium Chloride 112 mls @ 56 mls/hr IV ONETIME ONE Stop: 03/30/21 10:29 Last Admin: 03/30/21 09:39 Dose: 56 mls/hr Documented by: Potassium Phosphate 15 mmole/ (Sodium Chloride) 255 mls @ 125 mls/hr IV Q2H [facility] Stop: 03/30/21 14:59 Last Admin: 03/30/21 16:18 Dose: 125 mls/hr Documented by: Multivitamins/Minerals 10 ml/Zinc 1 ml/ Amino Acids/Electrolytes/Dextrose 1,011 mls @ 100 mls/hr IV .BY DURATION [facility] Stop: 03/31/21 13:30 Last Admin: 03/30/21 17:41 Dose: 100 mls/hr Documented by: Amino Acids/Electrolytes/Dextrose (Clinimix E 4.25/10) 1,000 mls @ 100 mls/hr IV .BY DURATION [facility] Stop: 03/31/21 13:30 Last Admin: 03/31/21 03:41 Dose: 100 mls/hr Documented by: Iopamidol (Iopamidol 755 Mg/Ml 100 Ml Bottle) 100 ml IV . DIRECTED [facility] Stop: 03/28/21 13:00 Last Admin: 03/28/21 13:08 Dose: 100 ml Documented by: Iopamidol (Iopamidol 612 Mg/Ml 100 Ml Bottle) 100 ml .XX . DIRECTED ONE Stop: 04/01/21 09:01 Last Admin: 04/01/21 10:13 Dose: 100 ml Documented by: Ketamine HCl (Ketamine 500 Mg/5 Ml Mdv) 26 mg IV ASDIRECTED [facility] Lidocaine/Epinephrine (Lidocaine 1% With Epinephrine 1:100,000 50 Ml Mdv) Con firm Administered Dose 50 ml .ROUTE .STK-MED ONE Stop: 03/27/21 09:15 Lidocaine/Epinephrine (Lidocaine 1% With Epinephrine 1:100,000 50 Ml Mdv) Confirm Administered Dose 50 ml .ROUTE .STK-MED ONE Stop: 03/30/21 08:34 Linezolid (Linezolid 600 Mg/300 Ml Bag) 600 mg IV .STK-MED ONE Stop: 03/27/21 12:34 Last Admin: 03/27/21 12:33 Dose: 600 mg Documented by: Meperidine HCl (Meperidine 300 Mg/30 Ml Maid Supervisor Vial) 0 mg IV ASDIRECTED PRN; Protocol PRN Reason: PAIN Last Admin: 03/27/21 10:12 Dose: 300 mg Documented by: Meropenem (Meropenem 500 Mg Sdv) Confirm Administered Dose 500 mg .ROUTE .STK- MED ONE Stop: 03/27/21 09:15 Metoclopramide HCl (Metoclopramide 10 Mg/2 Ml Sdv) 10 mg IVPUSH Q6H PRN PRN Reason: NAUSEA NOT CONTROL BY ZOFRAN Metoclopramide HCl (Metoclopramide 10 Mg/2 Ml Sdv) Confirm Administered Dose 10 mg .ROUTE .STK-MED ONE Stop: 03/30/21 13:19 Naloxone HCl (Naloxone 0.4 Mg/Ml Sdv) 0.1 mg IV ASDIRECTED PRN PRN Reason: decreased respiratory rate Neostigmine Methylsulfate (Neostigmine Methylsulfate 1 Mg/Ml 5 Ml Syringe) Confirm Administered Dose 5 mg .ROUTE .STK-MED ONE Stop: 03/27/21 07:12 Neostigmine Methylsulfate (Neostigmine Methylsulfate 1 Mg/Ml 5 Ml Syringe) Confirm Administered Dose 5 mg .ROUTE .STK-MED ONE Stop: 03/30/21 09:25 Non-Formulary Medication (Central Total Parenteral Nutrition Bag) 1,000 ml .XX .Continue Order [facility] Stop: 03/31/21 18:00 Non-Formulary Medication (Central Total Parenteral Nutrition Bag) 1,000 ml .XX .Continue Order [facility] Stop: 04/01/21 10:00 Ondansetron HCl (Ondansetron 4 Mg/2 Ml Sdv) Confirm Administered Dose 4 mg .ROUTE .STK-MED ONE Stop: 03/27/21 07:12 Ondansetron HCl (Ondansetron 4 Mg/2 Ml Sdv) Confirm Administered Dose 4 mg .ROUTE .STK-MED ONE Stop: 03/30/21 09:25 Piperacillin Sod/Tazobactam Sod (Piperacillin/Tazobactam 3.375 Gm Vial) Confirm Administered Dose 3.375 gm .ROUTE .STK-MED ONE Stop: 03/27/21 11:10 Piperacillin Sod/Tazobactam Sod (Piperacillin/Tazobactam 3.375 Gm Vial) 3.375 gm .XX .STK-MED ONE Stop: 03/27/21 11:53 Last Admin: 03/27/21 11:52 Dose: 3.375 gm Documented by: Propofol (Propofol 200 Mg/20 Ml Sdv) Confirm Administered Dose 200 mg .ROUTE .STK-MED ONE Stop: 03/27/21 07:12 Propofol (Propofol 200 Mg/20 Ml Sdv) Confirm Administered Dose 200 mg .ROUTE .STK-MED ONE Stop: 03/30/21 09:25 Rocuronium Mccaskill (Rocuronium 50 Mg/5 Ml Vial) Confirm Administered Dose 50 mg .ROUTE .STK-MED ONE Stop: 03/27/21 07:12 Rocuronium Mccaskill (Rocuronium 50 Mg/5 Ml Vial) Confirm Administered Dose 50 mg .ROUTE .STK-MED ONE Stop: 03/27/21 11:46 Rocuronium Mccaskill (Rocuronium 50 Mg/5 Ml Vial) Confirm Administered Dose 50 mg .ROUTE .STK-MED ONE Stop: 03/30/21 09:25 Sodium Chloride (Sodium Chloride 0.9% 10 Ml Syringe) 10 ml FLUSH ASDIRECTED PRN PRN Reason: Keep Vein Open Stop: 03/28/21 13:00 Succinylcholine Chloride (Succinylcholine 200 Mg/10 Ml Mdv) Confirm Administered Dose 200 mg .ROUTE .STK-MED ONE Stop: 03/27/21 07:12 Succinylcholine Chloride (Succinylcholine 200 Mg/10 Ml Mdv) Confirm Administered Dose 200 mg .ROUTE .STK-MED ONE Stop: 03/30/21 11:53 Sugammadex Sodium (Sugammadex Sodium 200 Mg/2 Ml Vial) Confirm Administered Dose 200 mg .ROUTE .STK-MED ONE Stop: 03/27/21 11:41 - Exam Quality Assessment: Supplemental Oxygen Central Line Total Time: 1Days 20Hours General: Alert, Oriented, Cooperative, Moderate Distress Lungs: Clear to Auscultation, Normal Respiratory Effort, Decreased Breath Sounds Cardiovascular: Regular Rate, Regular Rhythm, No Murmurs GI/Abdominal Exam: Soft, No Organomegaly, Tender. No: Distended, Guarding, Rigid, Rebound Extremities: Non-Tender, No Pedal Edema Sepsis Event Note - Evaluation Sepsis Screening Result: No Definite Risk - Focused Exam Vital Signs: Vital Signs Temp Pulse Resp BP BP Pulse Ox 04/01/21 12:44 90 L 04/01/21 11:00 96.1 F L 79 20 132/70 90 L 04/01/21 10:47 78 04/01/21 08:47 95 04/01/21 07:21 78 04/01/21 07:13 96.2 F L 74 16 122/64 94 L 04/01/21 07:11 94 L 04/01/21 03:39 95.3 F L 72 18 119/67 94 L 04/01/21 01:55 94 L Consult PN Assessment/Plan Procedures: Procedures BLOOD TYPING SEROLOGIC ABO (01/29/21) BLOOD TYPING SEROLOGIC RH(D) (01/29/21) RBC ANTIBODY SCREEN (01/29/21) ROUTINE VENIPUNCTURE (01/29/21) Problem List Initiated/Reviewed/Updated: Yes Plan: ASSESSMENT AND RECOMMENDATIONS Acute respiratory failure with hypoxia-atelectasis seems to be the most likely culprit based on CT scan imaging. Cannot rule out PE because of nondiagnostic scan. She is on broad-spectrum antibiotics in case there is an infiltrate superimposed on the atelectasis. No history of lung issues. There is probably some contribution from obesity hypoventilation and her surgery. Venous Doppler studies of both lower extremities showed no evidence of deep vein thrombosis -Aggressive pulmonary toilet -Supplement oxygen as needed, wean as able -Broad-spectrum antibiotics -Consider noninvasive ventilation if condition declines but patient is currently stable and does not require ICU level care Intra-abdominal abscess with anastomotic leak-patient is 2 weeks out from surgery. Did have drainage of the abscess. -Surgical management per Dr. Allison Morbid obesity with BMI greater than 90-recent gastric bypass surgery
[2021-04-01] MEDS: Pantoprazole 40 MG Vial IVPUSH SCH (16:00)
[2021-04-02] MEDS: Heparin Sodium 5,000 Units/ML Vial SUBCUT SCH (00:22)
[2021-04-02] MEDS: Ampicillin/Sulbactam Na 3 GM in Sodium Chloride 0.9% 100 ML IV SCH ×4 (03:52→20:06)
[2021-04-02] MEDS: Metoclopramide 10 MG/2 ML SDV IVPUSH SCH (03:52)
[2021-04-02] MEDS: MVI IV SCH ×3 (05:41)
[2021-04-02] MEDS: VITAMIN K IV SCH ×3 (05:41)
[2021-04-02] MEDS: [UNRECOGNIZED DRUG - OTHER] IV SCH ×3 (05:41)
[2021-04-02] MEDS: Albuterol/Ipratropium 3.0-0.5 MG/3 ML Neb Soln INH SCH ×4 (07:05→20:01)
[2021-04-02] MEDS ORDERED: Ondansetron 4 MG Tab.DIS PO PRN (07:36)
[2021-04-02] MEDS ORDERED: Central Total Parenteral Nutrition Bag SCH (07:45)
[2021-04-02] MEDS: Levothyroxine 100 MCG Tab PO SCH (08:08)
[2021-04-02] MEDS: Lactobacillus Rhamnosus GG (Probiotic) Cap PO SCH ×2 (09:00→20:01)
[2021-04-02] MEDS: DULoxetine 30 MG Cap PO SCH (09:00)
[2021-04-02] MEDS: Enoxaparin 100 MG/1 ML Syringe SUBCUT SCH (09:01)
[2021-04-02] MEDS: SCOPOLAMINE PATCH CHECK TOP SCH (09:01)
[2021-04-02] MEDS: Furosemide 20 MG/2 ML VIAL IVPUSH SCH (09:02)
[2021-04-02] MEDS: Pregabalin 75 MG Cap PO SCH ×2 (09:07→20:06)
[2021-04-02] MEDS ORDERED: Sodium Chloride 0.9% 1,000 ML IV SCH (12:30)
[2021-04-02] MEDS: Metoclopramide 10 MG Tab PO SCH ×3 (12:48→20:01)
--- NOTE | 2021-04-02 13:28 | PN ---
DATE OF SERVICE: 04/02/2021 SUBJECTIVE: Elza states her nausea is a little bit better. She did have a total of 460 mL in with urine output 900. JOHANN drains 1 and 2 put out 8 mL and 8 mL respectively of a serosanguineous drainage. REVIEW OF SYSTEMS: Remainder of review of systems negative for any pertinent positives and negatives. OBJECTIVE: GENERAL: Elza Alejandre is a pleasant 35-year-old female. VITAL SIGNS: TPR is 95.6, 78, 18, blood pressure was 112/61. HEENT: Negative. NECK: Supple. HEART: Regular rate and rhythm. LUNGS: Clear. ABDOMEN: Dressing dry and intact. JOHANN drains as above. EXTREMITIES: Without peripheral edema. ASSESSMENT: 1. Diagnostic laparoscopy with drainage of intraabdominal abscess between esophagogastric junction and spleen. Date of procedure: 03/27/2021. Surgeon: Tonny Allison MD. 2. Insertion of dual lumen Marquez catheter, left subclavian vein, upper GI endoscopy with placement of esophageal covered stent. POSTOPERATIVE DIAGNOSES: 1. Leak at the esophageal junction portion, esophagogastrojejunostomy portion of the duodenal switch, inadequate central vein access. Date of procedure: 03/30/2021. Surgeon: Tonny Allison MD. 2. TPN nutrition. PLAN: 1. Decrease TPN to 60 mL/h. 2. Amylase on both JOHANN drains in a.m. 3. Change Reglan to 10 mg scheduled p.o. q.6 hours, ask in a.m. 4. Zofran ODT 4 mg every 4 hours p.r.n. nausea. 5. Continue use of incentive spirometer. 6. Discontinue heparin. 7. Lovenox 100 mg subcu daily. 8. Rx Lovenox 100 mg subcu daily for 10 days sent to pharmacy and the patient's will pick that up today. 9. We will evaluate p.r.n. or in a.m. Dinora Fermin PA-C /[id number]
[2021-04-02] MEDS: Pantoprazole 40 MG Delayed-Release Granules 1 Packet PO SCH (17:04)
--- NOTE | 2021-04-02 18:05 | PCM.CONSN ---
- General Info Date of Service: 04/02/21 Subjective Update: Ms. Alejandre has been stable since yesterday. Tolerating current bariatric diet with no evidence of ongoing leak. She has been up in the chair and also walking in the hallways. No longer requiring supplemental oxygen when at rest. Functional Status: Reports: Tolerating Diet, Ambulating, Urinating - Review of Systems General: Reports: No Symptoms Pulmonary: Reports: No Symptoms Cardiovascular: Reports: No Symptoms Gastrointestinal: Reports: Abdominal Pain. Denies: Difficulty Swallowing, Hematochezia, Melena, Nausea, Vomiting - Patient Data Vitals - Most Recent: Last Vital Signs Temp 996.7 F H 04/02/21 12:00 Pulse 99 04/02/21 12:00 Resp 16 04/02/21 16:00 BP 139/74 04/02/21 11:16 Pulse Ox 90 L 04/02/21 16:00 Weight - Most Recent: 530 lb 11.2 oz I&O - Last 24 Hours: Intake & Output 04/02/21 04/02/21 04/02/21 06:59 14:59 22:59 Intake Total 4736 619 8287 Output Total 410 1800 460 Balance 1342 -1320 660 Lab Results Last 24 Hours: Laboratory Results - last 24 hr 04/02/21 04/02/21 04/02/21 Range/Units 04:38 04:38 09:57 WBC 7.9 (4.5-11.0) K/uL RBC 4.42 (3.30-5.50) M/uL Hgb 12.5 (12.0-15.0) g/dL Hct 40.5 (36.0-48.0) % MCV 92 (80-98) fL MCH 28 (27-31) pg MCHC 31 L (32-36) % Plt Count 334 (150-400) K/uL Sodium 142 (140-148) mmol/L Potassium 4.3 (3.6-5.2) mmol/L Chloride 102 (100-108) mmol/L Carbon Dioxide 29 (21-32) mmol/L Anion Gap 11.0 (5.0-14.0) mmol/L BUN 12 (7-18) mg/dL Creatinine 0.9 (0.6-1.0) mg/dL Est Cr Clr Drug Dosing 71.48 mL/min Estimated GFR (MDRD) > 60 (>60) Glucose 126 H (74-106) mg/dL Calcium 8.8 (8.5-10.1) mg/dL Phosphorus 4.2 (2.5-4.9) mg/dL Total Bilirubin 0.4 (0.2-1.0) mg/dL AST 30 (15-37) U/L ALT 45 (12-78) U/L Alkaline Phosphatase 62 (46-116) U/L Total Protein 7.0 (6.4-8.2) g/dL Albumin 2.6 L (3.4-5.0) g/dL Globulin 4.4 H (2.3-3.5) g/dL Albumin/Globulin Ratio 0.6 L (1.2-2.2) Fluid Type Jass drainage #1 Fluid Amylase 28 U/L // Range/Units 09:58 WBC (4.5-11.0) K/uL RBC (3.30-5.50) M/uL Hgb (12.0-15.0) g/dL Hct (36.0-48.0) % MCV (80-98) fL MCH (27-31) pg MCHC (32-36) % Plt Count (150-400) K/uL Sodium (140-148) mmol/L Potassium (3.6-5.2) mmol/L Chloride (100-108) mmol/L Carbon Dioxide (21-32) mmol/L Anion Gap (5.0-14.0) mmol/L BUN (7-18) mg/dL Creatinine (0.6-1.0) mg/dL Est Cr Clr Drug Dosing mL/min Estimated GFR (MDRD) (>60) Glucose (74-106) mg/dL Calcium (8.5-10.1) mg/dL Phosphorus (2.5-4.9) mg/dL Total Bilirubin (0.2-1.0) mg/dL AST (15-37) U/L ALT (12-78) U/L Alkaline Phosphatase (46-116) U/L Total Protein (6.4-8.2) g/dL Albumin (3.4-5.0) g/dL Globulin (2.3-3.5) g/dL Albumin/Globulin Ratio (1.2-2.2) Fluid Type Jass drainage #2 Fluid Amylase 1810 U/L Med Orders - Current: Current Medications Albuterol/Ipratropium (Albuterol/Ipratropium 3.0-0.5 Mg/3 Ml Neb Soln) [address] [facility] Last Admin: 04/02/21 14:33 Dose: 3 ml Documented by: Albuterol/Ipratropium (Albuterol/Ipratropium 3.0-0.5 Mg/3 Ml Neb Soln) 3 ml INH ASDIRECTED PRN PRN Reason: BREATHING Last Admin: 03/28/21 00:21 Dose: 3 ml Documented by: Cyclobenzaprine HCl (Cyclobenzaprine 10 Mg Tab) 10 mg PO Q8H PRN PRN Reason: Muscle Spasm Last Admin: 04/01/21 10:23 Dose: 10 mg Documented by: Duloxetine HCl (Duloxetine 30 Mg Cap) [address] [facility] Last Admin: 04/02/21 09:00 Dose: 60 mg Documented by: Enoxaparin Sodium (Enoxaparin 100 Mg/1 Ml Syringe) [address] [facility] Last Admin: 04/02/21 09:01 Dose: 100 mg Documented by: Furosemide (Furosemide 20 Mg/2 Ml Vial) [address] [facility] Last Admin: 04/02/21 09:02 Dose: 20 mg Documented by: Hydroxyzine HCl (Hydroxyzine Hcl 100 Mg/2 Ml Sdv) 100 mg IM Q4H PRN PRN Reason: breakthrough pain Last Admin: 03/30/21 21:55 Dose: 100 mg Documented by: Multivitamins/Minerals 10 ml/Zinc 1 ml/ Amino Acids/Electrolytes/Dextrose 2,011 mls @ 100 mls/hr IV .BY DURATION [facility] Stop: 04/03/21 01:00 Last Admin: 04/02/21 05:41 Dose: 100 mls/hr Documented by: Amino Acids/Electrolytes/Dextrose (Clinimix E 4.25/5) 2,000 mls @ 100 mls/hr IV .BY DURATION [facility] Stop: 04/03/21 01:00 Ampicillin Sodium/Sulbactam (Sodium 3 gm/ Sodium Chloride) 100 mls @ 200 mls/hr IV Q6H [facility] Last Admin: 04/02/21 15:00 Dose: 200 mls/hr Documented by: Multivitamins/Minerals 10 ml/Zinc 1 ml/ Amino Acids/Electrolytes/Dextrose 1,011 mls @ 60 mls/hr IV .BY DURATION [facility] Amino Acids/Electrolytes/Dextrose (Clinimix E 4.25/5) 1,000 mls @ 60 mls/hr IV .BY DURATION [facility] Sodium Chloride (Normal Saline) 1,000 mls @ 0 mls/hr IV ASDIRECTED [facility] Labetalol HCl (Labetalol 20 Mg/4 Ml Syringe) 5 mg IVPUSH Q5M PRN PRN Reason: SBP over 160 OR DBP over 95 Lactobacillus Rhamnosus (Lactobacillus Rhamnosus Gg (Probiotic) Cap) [address] [facility] Last Admin: 04/02/21 09:00 Dose: 2 cap Documented by: Levothyroxine Sodium (Levothyroxine 100 Mcg Tab) 100 mcg PO DAILY@0730 [facility] Last Admin: 04/02/21 08:08 Dose: 100 mcg Documented by: Lorazepam (Lorazepam 2 Mg/Ml Sdv) 0.5 mg IVPUSH Q3H PRN PRN Reason: Nausea Last Admin: 04/01/21 10:23 Dose: 0.5 mg Documented by: Metoclopramide HCl (Metoclopramide 10 Mg Tab) [address] [facility] Last Admin: 04/02/21 17:04 Dose: 10 mg Documented by: Scopolamine Patch (Check) [address] [facility] Last Admin: 04/02/21 09:01 Dose: Not Given Documented by: Ondansetron HCl (Ondansetron 4 Mg Tab.Dis) 4 mg PO Q4H PRN PRN Reason: Nausea/Vomiting Pantoprazole Sodium (Pantoprazole 40 Mg Delayed-Release Granules 1 Packet) [address] [facility] Last Admin: 04/02/21 17:04 Dose: 40 mg Documented by: Pregabalin (Pregabalin 75 Mg Cap) [address] [facility] Last Admin: 04/02/21 09:07 Dose: 150 mg Documented by: Scopolamine (Scopolamine 1.5 Mg Transdermal Patch) 1.5 mg TRDERM Q72H PRN PRN Reason: Nausea Last Admin: 03/31/21 09:43 Dose: 1.5 mg Documented by: Discontinued Medications Bupivacaine HCl (Bupivacaine 0.5% 50 Ml Mdv) Confirm Administered Dose 50 ml .ROUTE .[facility] ONE Stop: 03/27/21 09:15 Bupivacaine HCl (Bupivacaine 0.5% 50 Ml Mdv) Confirm Administered Dose 50 ml .ROUTE .STK-MED ONE Stop: 03/30/21 08:33 Ropivacaine 60 ml/Dexamethasone 8 mg/Epinephrine HCl 0.4 mg/ Sodium Chloride 17.6 ml [address] [facility] Last Admin: 03/27/21 11:39 Dose: 80 syringe Documented by: Cyanocobalamin (Cyanocobalamin (Vitamin B12) 1,000 Mcg/Ml Sdv) 1,000 mcg IM ONETIME ONE Stop: 03/29/21 09:01 Last Admin: 03/29/21 08:42 Dose: 1,000 mcg Documented by: Dexamethasone (Dexamethasone 4 Mg/Ml Sdv) Confirm Administered Dose 4 mg .ROUTE .STK-MED ONE Stop: 03/27/21 07:12 Dexamethasone (Dexamethasone 4 Mg/Ml Sdv) Confirm Administered Dose 4 mg .ROUTE .STK-MED ONE Stop: 03/30/21 09:25 Diphenhydramine HCl (Diphenhydramine 50 Mg/Ml Sdv) 50 mg IVPUSH Q4H PRN PRN Reason: ITCHING Droperidol (Droperidol 5 Mg/2 Ml Sdv) Confirm Administered Dose 5 mg .ROUTE .STK-MED ONE Stop: 03/30/21 13:19 Fentanyl (Fentanyl 250 Mcg/5 Ml Sdv) Confirm Administered Dose 250 mcg .ROUTE .STK-MED ONE Stop: 03/27/21 07:12 Fentanyl (Fentanyl 250 Mcg/5 Ml Sdv) Confirm Administered Dose 250 mcg .ROUTE .STK-MED ONE Stop: 03/27/21 12:15 Fentanyl (Fentanyl 250 Mcg/5 Ml Sdv) Confirm Administered Dose 250 mcg .ROUTE .STK-MED ONE Stop: 03/30/21 09:25 Furosemide (Furosemide 20 Mg/2 Ml Vial) [address] [facility] Glycopyrrolate (Glycopyrrolate 0.2 Mg/Ml 5 Ml Mdv) Confirm Administered Dose 1 mg .ROUTE .STK-MED ONE Stop: 03/27/21 07:12 Glycopyrrolate (Glycopyrrolate 0.2 Mg/Ml 5 Ml Mdv) Confirm Administered Dose 1 mg .ROUTE .STK-MED ONE Stop: 03/30/21 09:25 Heparin Sodium (Porcine) (Heparin Sodium 5,000 Units/Ml Vial) 5,[address] [facility] Last Admin: 04/02/21 00:22 Dose: 5,000 units Documented by: Heparin Sodium (Porcine) (Heparin Sodium 100 Units/Ml 5 Ml Syringe) Confirm Administered Dose 1,500 units .ROUTE .STK-MED ONE Stop: 03/30/21 08:34 Last Admin: 03/30/21 14:08 Dose: 1,500 units Documented by: Lactated Ringer's (Ringers, Lactated) 500 mls @ 1,000 mls/hr IV ONETIME ONE Stop: 03/27/21 08:29 Last Admin: 03/27/21 08:19 Dose: 1,000 mls/hr Documented by: Lactated Ringer's (Ringers, Lactated) 1,000 mls @ 250 mls/hr IV ASDIRECTED [facility] Last Admin: 03/27/21 10:15 Dose: 250 mls/hr Documented by: Piperacillin/Tazobactam/ (Dextrose 3.375 gm/ Premix) 50 mls @ 100 mls/hr IV ONETIME ONE Stop: 03/27/21 08:29 Last Admin: 03/27/21 08:19 Dose: 100 mls/hr Documented by: Aztreonam 1 gm/ Sodium (Chloride) 50 mls @ 100 mls/hr IV ONCALL ONE Stop: 03/27/21 09:29 Last Admin: 03/27/21 10:37 Dose: 100 mls/hr Documented by: Ketamine HCl 50 mg/ Sodium (Chloride) 50 mls @ 15.72 mls/hr IV ASDIRECTED [facility] Potassium Acetate 20 meq/Lidocaine HCl 2 ml/ Sodium Chloride 112 mls @ 56 mls/hr IV Q2H [facility] Stop: 03/27/21 12:59 Last Admin: 03/27/21 14:42 Dose: 56 mls/hr Documented by: Lactated Ringer's (Ringers, Lactated) 1,000 mls @ 100 mls/hr IV ASDIRECTED [facility] Last Admin: 03/30/21 04:39 Dose: 200 mls/hr Documented by: Piperacillin/Tazobactam/ (Dextrose 3.375 gm/ Premix) 50 mls @ 100 mls/hr IV Q6H [facility] Last Admin: 04/01/21 02:34 Dose: 100 mls/hr Documented by: Linezolid 600 mg/ Premix 300 mls @ 300 mls/hr IV Q12H [facility] Last Admin: 04/01/21 02:35 Dose: 300 mls/hr Documented by: Multivitamins/Minerals 10 ml/Thiamine HCl 200 mg/ Zinc 1 ml / Lactated Ringer's 1,013 mls @ 200 mls/hr IV DAILY@1600 [facility] Stop: 03/28/21 21:04 Last Admin: 03/28/21 16:37 Dose: 200 mls/hr Documented by: Magnesium Sulfate (Magnesium Sulfate In Water 2 Gm/50 Ml) 2 gm in 50 mls @ 25 mls/hr IV Q6HR [facility] Stop: 03/30/21 11:59 Last Admin: 03/30/21 09:44 Dose: 25 mls/hr Documented by: Potassium Phosphate 15 mmol/ (Premix) 250 mls @ 125 mls/hr IV Q2H [facility] Stop: 03/28/21 01:59 Last Admin: 03/28/21 01:37 Dose: 125 mls/hr Documented by: Potassium Phosphate 15 mmole/ (Sodium Chloride) 255 mls @ 125 mls/hr IV Q2H [facility] Stop: 03/28/21 13:59 Last Admin: 03/28/21 12:45 Dose: 125 mls/hr Documented by: Sodium Chloride (Normal Saline) 100 mls @ 3 mls/sec IV ASDIRECTED [facility] Stop: 03/28/21 13:00 Last Admin: 03/28/21 13:08 Dose: 3 mls/sec Documented by: Potassium Phosphate 15 mmole/ (Sodium Chloride) 255 mls @ 125 mls/hr IV Q2H [facility] Stop: 03/29/21 17:59 Last Admin: 03/29/21 17:00 Dose: 125 mls/hr Documented by: Potassium Chloride 20 meq/Lidocaine HCl 2 ml/ Sodium Chloride 112 mls @ 56 mls/hr IV ONETIME ONE Stop: 03/30/21 10:29 Last Admin: 03/30/21 09:39 Dose: 56 mls/hr Documented by: Potassium Phosphate 15 mmole/ (Sodium Chloride) 255 mls @ 125 mls/hr IV Q2H [facility] Stop: 03/30/21 14:59 Last Admin: 03/30/21 16:18 Dose: 125 mls/hr Documented by: Multivitamins/Minerals 10 ml/Zinc 1 ml/ Amino Acids/Electrolytes/Dextrose 1,011 mls @ 100 mls/hr IV .BY DURATION [facility] Stop: 03/31/21 13:30 Last Admin: 03/30/21 17:41 Dose: 100 mls/hr Documented by: Amino Acids/Electrolytes/Dextrose (Clinimix E 4.25/10) 1,000 mls @ 100 mls/hr IV .BY DURATION [facility] Stop: 03/31/21 13:30 Last Admin: 03/31/21 03:41 Dose: 100 mls/hr Documented by: Lactated Ringer's (Ringers, Lactated) 1,000 mls @ 20 mls/hr IV ASDIRECTED [facility] Last Admin: 03/31/21 03:44 Dose: 20 mls/hr Documented by: Iopamidol (Iopamidol 755 Mg/Ml 100 Ml Bottle) [address] [facility] Stop: 03/28/21 13:00 Last Admin: 03/28/21 13:08 Dose: 100 ml Documented by: Iopamidol (Iopamidol 612 Mg/Ml 100 Ml Bottle) 100 ml .XX . DIRECTED ONE Stop: 04/01/21 09:01 Last Admin: 04/01/21 10:13 Dose: 100 ml Documented by: Ketamine HCl (Ketamine 500 Mg/5 Ml Mdv) [address] [facility] Lidocaine/Epinephrine (Lidocaine 1% With Epinephrine 1:100,000 50 Ml Mdv) Confirm Administered Dose 50 ml .ROUTE .STK-MED ONE Stop: 03/27/21 09:15 Lidocaine/Epinephrine (Lidocaine 1% With Epinephrine 1:100,000 50 Ml Mdv) Confirm Administered Dose 50 ml .ROUTE .STK-MED ONE Stop: 03/30/21 08:34 Linezolid (Linezolid 600 Mg/300 Ml Bag) 600 mg IV .STK-MED ONE Stop: 03/27/21 12:34 Last Admin: 03/27/21 12:33 Dose: 600 mg Documented by: Meperidine HCl (Meperidine 300 Mg/30 Ml Orthopedic Brace Maker Vial) 0 mg IV ASDIRECTED PRN; Protocol PRN Reason: PAIN Last Admin: 03/27/21 10:12 Dose: 300 mg Documented by: Meropenem (Meropenem 500 Mg Sdv) Confirm Administered Dose 500 mg .ROUTE .STK- MED ONE Stop: 03/27/21 09:15 Metoclopramide HCl (Metoclopramide 10 Mg/2 Ml Sdv) 10 mg IVPUSH Q6H PRN PRN Reason: NAUSEA NOT CONTROL BY ZOFRAN Metoclopramide HCl (Metoclopramide 10 Mg/2 Ml Sdv) Confirm Administered Dose 10 mg .ROUTE .STK-MED ONE Stop: 03/30/21 13:19 Metoclopramide HCl (Metoclopramide 10 Mg/2 Ml Sdv) [address] [facility] Last Admin: 04/02/21 03:52 Dose: 10 mg Documented by: Naloxone HCl (Naloxone 0.4 Mg/Ml Sdv) 0.1 mg IV ASDIRECTED PRN PRN Reason: decreased respiratory rate Neostigmine Methylsulfate (Neostigmine Methylsulfate 1 Mg/Ml 5 Ml Syringe) Confirm Administered Dose 5 mg .ROUTE .STK-MED ONE Stop: 03/27/21 07:12 Neostigmine Methylsulfate (Neostigmine Methylsulfate 1 Mg/Ml 5 Ml Syringe) Confirm Administered Dose 5 mg .ROUTE .STK-MED ONE Stop: 03/30/21 09:25 Non-Formulary Medication (Central Total Parenteral Nutrition Bag) 1,000 ml .XX .Continue Order [facility] Stop: 03/31/21 18:00 Non-Formulary Medication (Central Total Parenteral Nutrition Bag) 1,000 ml .XX .Continue Order [facility] Stop: 04/01/21 10:00 Non-Formulary Medication (Central Total Parenteral Nutrition Bag) 1,000 ml .XX .Continue Order [facility] Stop: 04/02/21 18:00 Ondansetron HCl (Ondansetron 4 Mg/2 Ml Sdv) Confirm Administered Dose 4 mg .ROUTE .STK-MED ONE Stop: 03/27/21 07:12 Ondansetron HCl (Ondansetron 4 Mg/2 Ml Sdv) 4 mg IVPUSH Q4H PRN PRN Reason: Nausea/Vomiting Last Admin: 04/01/21 10:23 Dose: 4 mg Documented by: Ondansetron HCl (Ondansetron 4 Mg/2 Ml Sdv) Confirm Administered Dose 4 mg .ROUTE .STK-MED ONE Stop: 03/30/21 09:25 Pantoprazole Sodium (Pantoprazole 40 Mg Vial) 40 mg IVPUSH Q24H [facility] Last Admin: 04/01/21 16:00 Dose: 40 mg Documented by: Piperacillin Sod/Tazobactam Sod (Piperacillin/Tazobactam 3.375 Gm Vial) Confirm Administered Dose 3.375 gm .ROUTE .STK-MED ONE Stop: 03/27/21 11:10 Piperacillin Sod/Tazobactam Sod (Piperacillin/Tazobactam 3.375 Gm Vial) 3.375 gm .XX .STK-MED ONE Stop: 03/27/21 11:53 Last Admin: 03/27/21 11:52 Dose: 3.375 gm Documented by: Propofol (Propofol 200 Mg/20 Ml Sdv) Confirm Administered Dose 200 mg .ROUTE .STK-MED ONE Stop: 03/27/21 07:12 Propofol (Propofol 200 Mg/20 Ml Sdv) Confirm Administered Dose 200 mg .ROUTE .STK-MED ONE Stop: 03/30/21 09:25 Rocuronium Robson (Rocuronium 50 Mg/5 Ml Vial) Confirm Administered Dose 50 mg .ROUTE .STK-MED ONE Stop: 03/27/21 07:12 Rocuronium Robson (Rocuronium 50 Mg/5 Ml Vial) Confirm Administered Dose 50 mg .ROUTE .STK-MED ONE Stop: 03/27/21 11:46 Rocuronium Robson (Rocuronium 50 Mg/5 Ml Vial) Confirm Administered Dose 50 mg .ROUTE .STK-MED ONE Stop: 03/30/21 09:25 Sodium Chloride (Sodium Chloride 0.9% 10 Ml Syringe) 10 ml FLUSH ASDIRECTED PRN PRN Reason: Keep Vein Open Stop: 03/28/21 13:00 Succinylcholine Chloride (Succinylcholine 200 Mg/10 Ml Mdv) Confirm Administered Dose 200 mg .ROUTE .STK-MED ONE Stop: 03/27/21 07:12 Succinylcholine Chloride (Succinylcholine 200 Mg/10 Ml Mdv) Confirm Administered Dose 200 mg .ROUTE .STK-MED ONE Stop: 03/30/21 11:53 Sugammadex Sodium (Sugammadex Sodium 200 Mg/2 Ml Vial) Confirm Administered Dose 200 mg .ROUTE .STK-MED ONE Stop: 03/27/21 11:41 - Exam Central Line Total Time: 2Days 4Hours General: Alert, Oriented, Cooperative, Mild Distress Lungs: Clear to Auscultation, Normal Respiratory Effort Cardiovascular: Regular Rate, Regular Rhythm, No Murmurs GI/Abdominal Exam: Soft, No Organomegaly, Tender. No: Distended, Guarding, Rigid, Rebound Extremities: Non-Tender, No Pedal Edema Sepsis Event Note - Evaluation Sepsis Screening Result: No Definite Risk - Focused Exam Vital Signs: Vital Signs Temp Pulse Resp BP BP Pulse Ox 04/02/21 16:00 16 90 L 04/02/21 12:03 92 L 04/02/21 12:00 996.7 F H 99 16 90 L 04/02/21 11:16 96.5 F L 86 16 139/74 89 L 04/02/21 08:14 18 126/69 04/02/21 08:00 95.6 F L 78 18 91 L 04/02/21 07:24 94 L 04/02/21 07:06 88 Consult PN Assessment/Plan Procedures: Procedures BLOOD TYPING SEROLOGIC ABO (01/29/21) BLOOD TYPING SEROLOGIC RH(D) (01/29/21) RBC ANTIBODY SCREEN (01/29/21) ROUTINE VENIPUNCTURE (01/29/21) Problem List Initiated/Reviewed/Updated: Yes Plan: ASSESSMENT AND RECOMMENDATIONS Acute respiratory failure with hypoxia- There is probably some contribution from obesity hypoventilation and her surgery. -Aggressive pulmonary toilet -Supplement oxygen as needed, wean as able -Broad-spectrum antibiotics Intra-abdominal abscess with anastomotic leak-patient is 2 weeks out from surgery. Did have drainage of the abscess. Status post stent placement with no evidence of ongoing leak -Surgical management per Dr. Allison Morbid obesity with BMI greater than 90-recent gastric bypass surgery
[2021-04-03] MEDS: Ampicillin/Sulbactam Na 3 GM in Sodium Chloride 0.9% 100 ML IV SCH ×4 (02:00→20:27)
[2021-04-03] MEDS: 1: AA 4.25%/D5W/Calcium/Lytes 1,000 ML with MVI, Adult with Vitamin K 10 ML, Zinc/Copper IV SCH ×6 (05:00→22:17)
[2021-04-03] MEDS: Albuterol/Ipratropium 3.0-0.5 MG/3 ML Neb Soln INH SCH ×4 (07:15→20:26)
[2021-04-03] MEDS: Levothyroxine 100 MCG Tab PO SCH (07:34)
[2021-04-03] MEDS: Metoclopramide 10 MG Tab PO SCH ×4 (07:34→20:26)
[2021-04-03] MEDS: Pregabalin 75 MG Cap PO SCH ×2 (08:39→20:25)
[2021-04-03] MEDS: Enoxaparin 100 MG/1 ML Syringe SUBCUT SCH (08:40)
[2021-04-03] MEDS: Lactobacillus Rhamnosus GG (Probiotic) Cap PO SCH ×2 (08:40→20:25)
[2021-04-03] MEDS: Furosemide 20 MG/2 ML VIAL IVPUSH SCH (08:41)
[2021-04-03] MEDS: DULoxetine 30 MG Cap PO SCH (08:41)
[2021-04-03] MEDS: SCOPOLAMINE PATCH CHECK TOP SCH (08:42)
[2021-04-03] MEDS: Pantoprazole 40 MG Delayed-Release Granules 1 Packet PO SCH (16:54)
[2021-04-04] MEDS: Ampicillin/Sulbactam Na 3 GM in Sodium Chloride 0.9% 100 ML IV SCH ×2 (02:16→09:39)
[2021-04-04] MEDS: Metoclopramide 10 MG Tab PO SCH (07:09)
[2021-04-04] MEDS: Levothyroxine 100 MCG Tab PO SCH (07:09)
[2021-04-04] MEDS: Albuterol/Ipratropium 3.0-0.5 MG/3 ML Neb Soln INH SCH ×2 (07:36→10:45)
[2021-04-04] MEDS: Furosemide 20 MG/2 ML VIAL IVPUSH SCH (08:52)
[2021-04-04] MEDS: Lactobacillus Rhamnosus GG (Probiotic) Cap PO SCH (08:56)
[2021-04-04] MEDS: DULoxetine 30 MG Cap PO SCH (08:56)
[2021-04-04] MEDS: Scopolamine 1.5 MG Transdermal Patch TRDERM PRN (08:56)
[2021-04-04] MEDS: Pregabalin 75 MG Cap PO SCH (08:56)
[2021-04-04] MEDS: Enoxaparin 100 MG/1 ML Syringe SUBCUT SCH (08:56)
[2021-04-04] MEDS: SCOPOLAMINE PATCH CHECK TOP SCH (08:57)
--- NOTE | 2021-04-04 13:31 | PN ---
DATE OF SERVICE: 04/03/2021 The patient has been afebrile with stable vital signs. No major problems noted overnight. The JOHANN amylases are 486 and 24. However, JOHANN is a little bit but certainly based on the amylase level, there is no leak around the stent at this point, and oral intake has been fairly good. We will continue TPN today, and we will teach her JOHANN care. She will likely be ready for discharge home tomorrow. Overall plan would then be to just get her back probably something like a week from Monday for stent removal. We will leave the JOHANN drains in place in the event that there is still a leak after the stent removal, in which case, hopefully, the drains would picking machine operator helper the in that and prevent the need for reoperation. We will keep the D5 and TPN going for today to provide some protein intake and likely be ready for discharge home tomorrow. Tonny Allison MD /[id number]
--- NOTE | 2021-04-05 15:51 | DISCH ---
FINAL DIAGNOSES: Leakage at the esophagogastric junction with associated abscess adjacent to distal esophagus and proximal stomach. SECONDARY DIAGNOSES: 1. Status post duodenal switch. 2. Posttraumatic stress disorder with generalized anxiety disorder. 3. Polycystic ovary syndrome. OPERATIVE PROCEDURES: 1. Done on 03/27, diagnostic laparoscopy with: a. Drainage of intraabdominal abscess between esophagogastric junction and spleen. b. Suture closure of esophagogastric junction with reinforcement with fibrin sealant. 2. Second procedure on 03/30: a. Insertion of double-lumen Marquez catheter. b. Upper gastrointestinal endoscopy with placement of esophagogastric covered stent. SUMMARY: This is a 35-year-old who underwent a duodenal switch laparoscopically on 03/11. Preoperatively, she had a BMI of 99.7. Initially, she did well and was discharged home on postop day 3. The following Monday, she developed increasing abdominal pain and fever and was admitted overnight at [facility] and transferred here on Monday morning, 03/27. At that time, the patient underwent a diagnostic laparoscopy with drainage of the abscess between the esophagogastric junction and spleen and suture closure of the area around the esophagogastric junction with this being reinforced with mesh. On 03/30, the patient then had a Marquez catheter placed and was continued on TPN with D5 glucose concentration for the duration of the hospitalization. The main goal here was to maintain some adequate protein intake during the healing process. At this point, she is tolerating a full liquid diet around the stent which was also placed on 03/30 and will be discharged home. She will be continued on her usual medications plus Lovenox 100 mg subcutaneous daily and Tylenol as needed for pain. Followup will be with Dr. Allison with readmission with 24-hour short stay on 04/13 for stent removal. We will at that point obtain an upper GI x-ray following removal of stent, and if that looks okay, resume diet, and if that goes okay, discharge the next day with removal of drains at that point. She has been requiring only Tylenol for pain and has been instructed in terms of drain management. /[id number]
--- NOTE | 2021-04-13 10:20 | OR ---
DATE OF PROCEDURE: 03/27/2021 SURGEON: Tonny Allison MD PREOPERATIVE DIAGNOSIS: Intraabdominal abscess associated with probable leak at the esophagogastric junction. POSTOPERATIVE DIAGNOSIS: Intraabdominal abscess associated with probable leak at the esophagogastric junction. PROCEDURES: Diagnostic laparoscopy with: 1. Drainage of intraabdominal abscess between esophagogastric junction and spleen. 2. Suture closure of area of esophagogastric junction with reinforcement with fibrin sealant ([id number]). ANESTHESIA: General. INDICATIONS FOR PROCEDURE: A 35-year-old female presenting with probable leak at her esophagogastric junction status post recent duodenal switch, and presents with some elevated fever and abnormal back pain and was noted on a CT scan to have what appears to be abscess between the esophagogastric junction and spleen. It is possible this is related to simply having some hematoma in that area becoming infected versus a leak at the esophagogastric junction. This was a very difficult dissection in that area with the patient having a preoperative BMI of 99.7. The potential risks of further bleeding and infection were reviewed, and the patient wishes to proceed. DETAILS OF PROCEDURE: The patient was taken to the operating room and placed in a supine position. After general endotracheal anesthesia was induced, the abdomen was prepped and draped. The previous site of the camera port located inferior to the left of the midline was then reused and the peritoneal cavity entered under direct vision with an Optiview trocar and inflated to 15 mmHg pressure of CO2. The laparoscope was reinserted. No underlying trocar insertion site injuries were seen. previously used trocars were then reused with 1 additional trocar being placed in the right mid abdomen. The liver was elevated upward and there were some loose adhesions, which were broken down and eventually the area of the abscess was encountered, some creamy purulent material was evacuated and sent for cultures. After the abscess had been well drained by breaking up some of the adhesions between the area of the diaphragm, omentum, esophagogastric junction, adjacent upper pole of the spleen. There appeared to be no further purulence present. There was some tissue at the esophagogastric junction, which could be quite friable. This was suture ligated at this point with 2 [id number] stitches of 3-0 Vicryl stitch and then reinforced with fibrin sealant. At that point, Anesthesia placed a tube into the area of the esophagogastric junction and area was inflated, which was densely distended with air. No leaks could be identified as the area was re-irrigated with a combination of meropenem and Zyvox-containing saline solution. A Jose Eduardo-Lunsford drain was then placed immediately adjacent to the esophagogastric junction, then one somewhat anterior to it. At that point, into the splenic fossa. No further problems were noted. At this point, the trocars were removed and the peritoneal cavity deflated. The drain was fixed with simple 4-0 Vicryl stitch. The left lateral trocar site was packed open as this was quite edematous, had some fluid within it. One additional previous trocar site, which was not reused today had a small amount of purulence found and this was packed open as well and the procedure concluded. The patient was taken to the recovery room in satisfactory condition. Tonny Allison MD /[id number]
--- NOTE | 2021-04-13 12:46 | OR ---
DATE OF PROCEDURE: 03/30/2021 SURGEON: Tonny Allison MD PREOPERATIVE DIAGNOSES: 1. Leak at esophagogastric junction of duodenal switch. 2. Indications for central venous access. POSTOPERATIVE DIAGNOSES: 1. Leak at esophagogastric junction of duodenal switch. 2. Indications for central venous access. OPERATIVE PROCEDURES: 1. Insertion of double-lumen Marquez catheter via left subclavian vein approach (02310). 2. Upper GI endoscopy with placement of the esophagogastric covered stent ([id number]). ANESTHESIA: General. INDICATIONS FOR PROCEDURE: The patient presented with a leak at the level of the esophagogastric junction following a duodenal switch now done approximately 14 days earlier. The plan is to proceed with placement of a covered stent along with Marquez catheter placement. The patient has developed a very limited peripheral venous access and will be receiving some IV hyperalimentation while awaiting the resumption of adequate oral intake. The potential risks of the procedures including bleeding, infection, migration of the stent requiring its early removal, and possible open laparotomy for removal, and with regard to the central line problems such as hemopneumothorax, injury to the vasculature, and such were gone over, and the patient likewise wishes to proceed. DETAILS OF PROCEDURE: The patient was placed in the supine position after general endotracheal anesthetic was induced and the upper chest and neck areas were prepped and draped. The left subclavian vein was then cannulated and guidewire passed. Over the guidewire, the introducer for the Marquez catheter was placed. The wire had gone down nicely toward the superior vena cava. Over the introducer, a double-lumen catheter which at that point had been tunneled a handsbreadth inferior to the original puncture site through the subcutaneous tissue was cut and positioned via the peel-away catheter without difficulty. Good in and outflow was noted through the ports which were then sutured to skin with some 3-0 Vicryl stitch. The original puncture site was closed at the subdermal location with 4-0 Vicryl stitch and a Steri-Strip applied. The fluoroscopic x-ray showed no complications and good catheter position. Maintaining the patient in a supine position then, the upper GI endoscope was passed orally through the length of the esophagus and into the gastric sleeve. The site of the leak could be identified. Of note, the Jose Eduardo-Lunsford drains in the area had probably been placed to active suction, but at this point, no obvious bubbles were coming even though the patient was getting some obvious salivary content and taken intermittently over the last 24 hours. The external donovan for the center of the leak was then placed with the Evelina clamp and into the stomach with the gastroscope then being removed needing fluoroscopic surveillance. A 120 cm covered stent was then deployed and after removal of the wire, the gastroscope was once again placed and this confirmed adequate location of the stent, a good sealing of the stent superiorly which should at this point prevent any significant food from getting in or around the stent. The patient was taken to the recovery room in satisfactory condition. There were no evident complications. Tonny Allison MD /[id number]
== END 2021-04-04 11:37 | disposition home or self-care (01) | DRG 326 ==
LOC: JP.MS 07:05
PROVIDERS: ADMIT Surgery; ATTEND Surgery
PROC: 0D9 Gastrointestinal System, Drainage (ICD-10-PCS; principal; 2021-03-27)
PROC: 0DQ44ZZ Repair Esophagogastric Junction, Percutaneous Endoscopic Approach (ICD-10-PCS; 2021-03-27)
PROC: 02HV33Z Insertion of Infusion Device into Superior Vena Cava, Percutaneous Approach (ICD-10-PCS; 2021-03-30)
PROC: 0D748DZ Dilation of Esophagogastric Junction with Intraluminal Device, Via Natural or Artificial Opening Endoscopic (ICD-10-PCS; 2021-03-30)
DX: K95.89 Other complications of other bariatric procedure (principal); K65.1 Peritoneal abscess; J96.01 Acute respiratory failure with hypoxia; J98.11 Atelectasis; Z68.45 Body mass index [BMI] 70 or greater, adult; K20.80 Other esophagitis without bleeding; F43.10 Post-traumatic stress disorder, unspecified; F41.1 Generalized anxiety disorder; E28.2 Polycystic ovarian syndrome; E66.01 Morbid (severe) obesity due to excess calories; H54.7 Unspecified visual loss; G47.30 Sleep apnea, unspecified; K21.9 Gastro-esophageal reflux disease without esophagitis; G89.29 Other chronic pain; M54.9 Dorsalgia, unspecified; F41.9 Anxiety disorder, unspecified; E87.6 Hypokalemia; E03.9 Hypothyroidism, unspecified; Z91.030 Bee allergy status; Z88.5 Allergy status to narcotic agent; Z98.84 Bariatric surgery status; Z88.6 Allergy status to analgesic agent; Z88.8 Allergy status to other drugs, medicaments and biological substances; Z91.018 Allergy to other foods; Z79.890 Hormone replacement therapy; Z79.899 Other long term (current) drug therapy; Z90.710 Acquired absence of both cervix and uterus; Z98.890 Other specified postprocedural states; Z87.891 Personal history of nicotine dependence; Z87.01 Personal history of pneumonia (recurrent)
CPT/HCPCS: 36415; 71046; 71046-26; 71260; 74240; 74240-26; 80053; 81001; 82150; 83735; 83880; 84100; 85025; 85027; 86850; 86900; 86901; 87070; 87075; 87077; 87086; 87186; 87205; 93970; 93970-26; 94640; 94762; 99222; 99232; A9270-GY; C1776; C1874; C9113; J0171; J0295; J0330; J1100; J1642; J1644; J1650; J1790; J1940; J2001; J2020; J2060; J2175; J2185; J2405; J2543; J2704; J2710; J2765; J2795; J3010; J3410; J3411; J3420; J3475; J3480; J3490; J7050; J7120; J7620-GY; Q9967

== ENCOUNTER 2021-04-13 05:56 | Day surgery (SDC) | payer MEDICAID ==
[2021-04-13] MEDS ORDERED: Ondansetron 4 MG/2 ML SDV ONE (07:01)
[2021-04-13] MEDS ORDERED: Rocuronium 50 MG/5 ML Vial ONE (07:01)
[2021-04-13] MEDS ORDERED: Neostigmine Methylsulfate 1 MG/ML 5 ML Syringe ONE (07:01)
[2021-04-13] MEDS ORDERED: Dexamethasone 4 MG/ML SDV ONE (07:01)
[2021-04-13] MEDS ORDERED: Succinylcholine 200 MG/10 ML MDV ONE (07:01)
[2021-04-13] MEDS ORDERED: Propofol 200 MG/20 ML SDV ONE (07:01)
[2021-04-13] MEDS ORDERED: Glycopyrrolate 0.2 MG/ML 5 ML MDV ONE (07:01)
[2021-04-13] MEDS ORDERED: fentaNYL 100 MCG/2 ML SDV ONE (07:02)
[2021-04-13] MEDS ORDERED: Lactated Ringers 1,000 ML IV ONE (07:15)
[2021-04-13] MEDS ORDERED: Scopolamine 1.5 MG Transdermal Patch TRDERM ONE (07:19)
[2021-04-13] MEDS ORDERED: Cyanocobalamin (Vitamin B12) 1,000 MCG/ML SDV IM ONE (07:36)
[2021-04-13] MEDS ORDERED: Iopamidol 612 MG/ML 100 ML Bottle ONE (08:10)
[2021-04-13] MEDS ORDERED: MVI, Adult with Vitamin K 10 ML, Thiamine 200 MG, Zinc/Copper/Manganese/Selenium 1 ML i... IV ONE ×4 (08:15)
[2021-04-13] MEDS ORDERED: Metoclopramide 10 MG Tab PO PRN (09:44)
[2021-04-13] MEDS ORDERED: Ondansetron 4 MG/2 ML SDV IVPUSH PRN (09:44)
[2021-04-13] MEDS ORDERED: Dextrose 5%-Lactated Ringers 1,000 ML IV SCH (10:15)
[2021-04-13] MEDS ORDERED: VERIFY SCOP PATCH TOP SCH (10:30)
--- NOTE | 2021-04-13 11:21 | CR ---
UGI CLINICAL HISTORY: Leak at GEJ FINDINGS: Patient swallowed water-soluble contrast without difficulty. Previously seen stent has been removed. There is some holdup in the distal esophagus with a segment of smooth narrowing distal to that. This appears to be some muscle swelling or intermittent spasm. There is no evidence of extravasation. IMPRESSION: No evidence of extravasation at the gastroesophageal junction. Long segment of smooth narrowing which showed variability during the exam. This may represent some mucosal swelling or possibly intermittent spasm. There is no evidence of obstruction to thin liquids.
[2021-04-13] MEDS: Levothyroxine 100 MCG Tab PO SCH (11:40)
[2021-04-13] MEDS: DULoxetine 30 MG Cap PO SCH (11:41)
[2021-04-13] MEDS: Pregabalin 75 MG Cap PO SCH (11:45)
[2021-04-13] MEDS: Pantoprazole 40 MG Tab.CR PO SCH (17:45)
[2021-04-13] MEDS ORDERED: Enoxaparin 100 MG/1 ML Syringe SUBCUT SCH (18:00)
[2021-04-13] MEDS: Dextrose 5%-Lactated Ringers 1,000 ML IV SCH (18:26)
[2021-04-14] MEDS: Dextrose 5%-Lactated Ringers 1,000 ML IV SCH (03:15)
[2021-04-14] MEDS ORDERED: HYDROmorphone 2 MG Tab PO ONE (07:30)
[2021-04-14] MEDS: Pantoprazole 40 MG Tab.CR PO SCH (09:06)
[2021-04-14] MEDS: DULoxetine 30 MG Cap PO SCH (09:06)
[2021-04-14] MEDS: Levothyroxine 100 MCG Tab PO SCH (09:06)
[2021-04-14] MEDS: Pregabalin 75 MG Cap PO SCH (09:11)
--- NOTE | 2021-04-14 09:34 | DISCH ---
ADMISSION DIAGNOSES: Esophageal stent and then status post duodenal switch, chronic low back pain, generalized anxiety disorder, posttraumatic stress disorder, history of gastroesophageal reflux disease, polycystic ovary disease, morbid obesity, body mass index 88. DISCHARGE DIAGNOSIS: Esophagogastroduodenoscopy with removal of esophageal stent for status post esophageal stent placement. Date of procedure 04/14/2021. Surgeon: Tonny Allison MD. HISTORY: Elza Alejandre is a pleasant 35-year-old female, who had an esophageal stent following a leak after a duodenal switch. After preoperative evaluation and discussion of possible risks and possible complications, she wished to proceed with surgical procedure. HOSPITAL COURSE: Elza had her stent removed on 04/13/2021, and she was able to be discharged the next morning on 04/14/2021. PHYSICAL EXAMINATION: GENERAL: Elza Alejandre is a 35-year-old female. VITAL SIGNS: Height is 5 feet 3 inches, weight is 497 pounds, BMI 88, TPR 95.1, 65, 16, blood pressure 120/68. HEENT: Negative. NECK: Supple. She has a left subclavian Marquez catheter in. HEART: Regular rate and rhythm. LUNGS: Clear. ABDOMEN: Soft, nontender. Sutures remain and these will be removed prior to discharge. EXTREMITIES: Without peripheral edema. DISPOSITION: Discharged to home. CONDITION: Stable and improving. FOLLOWUP APPOINTMENT: With Dinora Fermin PA-C, on 04/21/2021 at 10 a.m. HOME MEDICATIONS: Resume all medications. In addition, Lovenox 100 mg subcu daily, #14. DIET: Step-2 gastric bypass diet with no cereal. Drink 8 to 10 glasses of water a day. ACTIVITY: As tolerated. Walk 6 times daily inside your home. Shower/bathing: May shower. Keep operative site clean and dry. Notify provider if any fever, increased pain, nausea, vomiting. Use incentive spirometer 10 times every hour while awake. /[id number]
--- NOTE | 2021-04-26 08:58 | OR ---
DATE OF PROCEDURE: 04/13/2021 SURGEON: Tonny Allison MD PREOPERATIVE DIAGNOSIS: Status post esophagogastric stent placement. POSTOPERATIVE DIAGNOSIS: Status post esophagogastric stent placement. OPERATIVE PROCEDURE: Upper gastrointestinal endoscopy with removal of esophagogastric stent ([id number]). ANESTHESIA: General. INDICATIONS FOR PROCEDURE: A 35-year-old recently status post a duodenal switch in which she developed a leak from the area of the esophagogastric junction and the sleeve gastrectomy portion of the procedure. The area was operatively drained and subsequently a stent is now ultimately in position for roughly 2 weeks, and the plan is to remove the stent. Of note, the patient has 2 remaining JOHANN drains in the area adjacent to the esophagogastric junction. Amylase levels on both of these were in the normal range, i.e., there is no suggestion of continued of any salivary contents. Potential risks of the procedure including bleeding, infection, injury to underlying viscera, possibility of the leak recurring or persisting after stent removal requiring potential additional interventions were all reviewed, and the patient wishes to proceed. DETAILS OF PROCEDURE: The patient was taken to the operating room and placed in a supine position. General endotracheal anesthesia was induced and the upper GI endoscope was passed orally through the length of the esophagus through the area of the stent and down into the remaining sleeve gastrectomy sleeve, pyloric channel, and duodenal ileostomy was checked and found to be otherwise unremarkable. At this point, the proximal ends of the stent was grasped with the pursestring with wire being pulled up in with the alligator forceps. This allowed the pursestring of the proximal end of the stent and this was then pulled out along with gastroscope without difficulty. The patient had suction maintained on JOHANN drains during the procedure and there was no evidence of any leak. Gastroscope was then placed once again and the area of the stent placement appeared to be well healed with intact mucosa circumferentially. Scope was then withdrawn and the procedure then concluded. The patient will have an upper GI x-ray later this morning. If that looks okay, we will begin a diet and she may be discharged home in the next 24 hours. Tonny Allison MD /[id number]
== END 2021-04-14 11:40 | disposition home or self-care (01) ==
LOC: JP.SDS 05:56 → JP.MS 08:35 → JP.SDS 04-14 11:40
PROVIDERS: ATTEND Surgery
DX: Z45.89 Encounter for adjustment and management of other implanted devices (principal); G89.29 Other chronic pain; M54.5 Low back pain; K21.9 Gastro-esophageal reflux disease without esophagitis; E66.01 Morbid (severe) obesity due to excess calories; Z68.45 Body mass index [BMI] 70 or greater, adult; F17.200 Nicotine dependence, unspecified, uncomplicated
CPT/HCPCS: 36415; 43247; 74240; 80053; 82150; 83735; 84100; 85027; A9270; J0330; J1100; J1642; J1650; J2405; J2704; J2710; J3010; J3411; J3420; J3490; J7120; J7121; Q9967

== ENCOUNTER 2021-04-30 10:32 | Inpatient (IN) | payer MEDICAID ==
[2021-04-30] MEDS ORDERED: Sodium Chloride 0.9% 1,000 ML IV ONE (11:21)
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
[2021-04-30] MEDS ORDERED: Vancomycin 1 GM SDV IV SCH ×2 (13:00→15:00)
--- NOTE | 2021-04-30 13:19 | CR ---
CHEST: 2 view CLINICAL HISTORY:SOB, fever COMPARISON:03/29/2021, CT 03/28/2021 FINDINGS: Patient is a small to moderate left pleural effusion. There is some underlying left lower lobe airspace disease. There was some airspace disease in this area on prior CT. Heart and pulmonary vascular appear normal. Patient has a left subclavian central venous line in place.. IMPRESSION: Persistent left lower lobe airspace disease New left pleural effusion
[2021-04-30] MEDS ORDERED: Pantoprazole 40 MG Vial IVPUSH ONE (13:56)
[2021-04-30] MEDS ORDERED: Vancomycin 2 GM in Sodium Chloride 0.9% 500 ML IV ONE (14:00)
[2021-04-30] MEDS ORDERED: Pantoprazole 40 MG Tab.CR PO SCH (14:00)
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
[2021-04-30] MEDS ORDERED: Lactated Ringers 1,000 ML IV SCH (14:43)
[2021-04-30] MEDS ORDERED: oxyCODONE 5 MG Tab PO PRN (14:43)
[2021-04-30] MEDS ORDERED: Cetirizine 10 MG Tab PO PRN (14:43)
[2021-04-30] MEDS ORDERED: Sodium Chloride 0.9% 10 ML Syringe FLUSH PRN (14:43)
--- NOTE | 2021-04-30 16:10 | CRLCT ---
For Patients: As a result of the Century Cures Act, medical imaging exams and procedure reports are released immediately into your electronic medical record. You may view this report before your referring provider. If you have questions, please contact your health care provider. INDICATION: Fever. Abnormal chest x-ray. TECHNIQUE: CT chest without contrast. COMPARISON: Chest x-ray April 30, 2021. CT chest March 28, 2021. FINDINGS: Lungs and pleura: Moderate left-sided pleural effusion with passive atelectasis in the left lower lobe. Remainder of the lungs are clear. No pneumothorax. Heart and vasculature: Heart size is normal. Thoracic aorta and pulmonary artery are normal in caliber. Lymph nodes/mediastinum: No mediastinal, hilar, or axillary adenopathy. Thyroid gland is normal. Chest wall: No masses. Upper abdomen: Normal. Bones: Unremarkable for age. IMPRESSION: Moderate-size left pleural effusion with adjacent passive atelectasis in the left lower lobe. No convincing evidence for pneumonia. Remainder of the exam is unremarkable. Please note that all CT scans at this facility use dose modulation, iterative reconstruction, and/or weight-based dosing when appropriate to reduce radiation dose to as low as reasonably achievable. Dictated by Mark Noyola MD @ 04/30/2021 4:08:[address] Mark Noyola @ Apr 30 2021 4:08PM
[2021-04-30] MEDS: Piperacillin/Tazobactam/Dext 3.375 GM in Premix Bag 1 BAG IV SCH ×2 (16:33→21:34)
[2021-04-30] MEDS: Lactated Ringers 1,000 ML IV SCH (17:35)
[2021-04-30] MEDS: Multivitamins with Iron Tab.Chew CHEW SCH (21:30)
[2021-04-30] MEDS: Pregabalin 75 MG Cap PO SCH (21:30)
[2021-04-30] MEDS: Vancomycin 2 GM in Sodium Chloride 0.9% 500 ML IV SCH (22:15)
[2021-05-01] MEDS ORDERED: Ibuprofen 400 MG Tab PO ONE (00:08)
[2021-05-01] MEDS ORDERED: Ibuprofen 400 MG Tab ONE (00:28)
[2021-05-01] MEDS: Ondansetron 4 MG/2 ML SDV IV PRN ×4 (02:19→20:00)
[2021-05-01] MEDS: Lactated Ringers 1,000 ML IV SCH (03:50)
[2021-05-01] MEDS: Piperacillin/Tazobactam/Dext 3.375 GM in Premix Bag 1 BAG IV SCH ×4 (04:09→21:45)
[2021-05-01] MEDS: Vancomycin 2 GM in Sodium Chloride 0.9% 500 ML IV SCH ×2 (05:29→17:44)
[2021-05-01] MEDS ORDERED: Bupivacaine 0.5% 50 ML MDV ONE (06:43)
[2021-05-01] MEDS ORDERED: Lidocaine 1% with EPINEPHrine 1:100,000 50 ML MDV ONE (06:43)
[2021-05-01] MEDS ORDERED: Midazolam 1 MG/ML 2 ML SDV ONE (07:16)
[2021-05-01] MEDS ORDERED: Propofol 200 MG/20 ML SDV ONE (07:16)
[2021-05-01] MEDS ORDERED: fentaNYL 100 MCG/2 ML SDV ONE (07:16)
[2021-05-01] MEDS ORDERED: Potassium Chloride 20 MEQ Tab.ER PO ONE (08:30)
[2021-05-01] MEDS: Pantoprazole 40 MG Delayed-Release Granules 1 Packet PO SCH (10:02)
[2021-05-01] MEDS: Vitamin B Complex Tab PO SCH (10:03)
[2021-05-01] MEDS: Cyanocobalamin (Vitamin B12) 1,000 MCG Tab SL SCH (10:03)
[2021-05-01] MEDS: Multivitamins with Iron Tab.Chew CHEW SCH ×3 (10:03→21:45)
[2021-05-01] MEDS: Levothyroxine 100 MCG Tab PO SCH (10:03)
[2021-05-01] MEDS: Calcium Carbonate 500 MG Tab.Chew PO SCH (10:03)
[2021-05-01] MEDS: DULoxetine 30 MG Cap PO SCH (10:03)
[2021-05-01] MEDS: Cholecalciferol (Vitamin D3) 25 MCG Tab PO SCH (10:04)
[2021-05-01] MEDS: Enoxaparin 100 MG/1 ML Syringe SUBCUT SCH (10:04)
[2021-05-01] MEDS: Pregabalin 75 MG Cap PO SCH ×2 (10:06→21:45)
[2021-05-01] MEDS: Magnesium Sulfate/Water 2 GM in Premix Bag 1 BAG IV SCH ×3 (10:09→22:42)
[2021-05-01] MEDS: Potassium Chloride 20 MEQ, Lidocaine 1% 2 ML in Sodium Chloride 0.9% 100 ML IV SCH ×2 (11:57→14:13)
--- NOTE | 2021-05-01 12:20 | PCM.PN ---
- General Info Date of Service: 05/01/21 Subjective Update: Ms. Alejandre has been stable since admission. She does develop significant tachycardia associated with fever. Heart rate elevation resolves when fever is controlled. 1 set of blood cultures growing gram-negative rods as is the urine culture. Marquez catheter was removed this morning by Dr. Allison, culture and sensitivities pending Functional Status: Reports: Tolerating Diet, Urinating - Review of Systems General: Reports: Fever, Weakness, Fatigue, Chills Pulmonary: Reports: No Symptoms Cardiovascular: Reports: No Symptoms Gastrointestinal: Reports: No Symptoms Genitourinary: Reports: Dysuria - Patient Data Vitals - Most Recent: Last Vital Signs Temp 98 F 05/01/21 12:00 Pulse 122 H 05/01/21 08:10 Resp 18 05/01/21 12:00 BP 112/58 L 05/01/21 12:00 Pulse Ox 93 L 05/01/21 12:00 Weight - Most Recent: 479 lb 15.141 oz I&O - Last 24 Hours: Intake & Output 04/30/21 05/01/21 05/01/21 22:59 06:59 14:59 Intake Total 1100 2214 Output Total 350 200 500 Balance 750 2014 -500 Lab Results Last 24 Hours: Laboratory Results - last 24 hr 04/30/21 04/30/21 05/01/21 Range/Units 11:50 12:56 05:20 WBC 6.3 (4.5-11.0) K/uL RBC 4.27 (3.30-5.50) M/uL Hgb 12.3 (12.0-15.0) g/dL Hct 37.8 (36.0-48.0) % MCV 89 (80-98) fL MCH 29 (27-31) pg MCHC 33 (32-36) % Plt Count 167 (150-400) K/uL Neut % (Auto) 80.6 H (36-66) % Lymph % (Auto) 11.9 L (24-44) % Morrow % (Auto) 7.0 H (2-6) % Eos % (Auto) 0.2 L (2-4) % Baso % (Auto) 0.3 (0-1) % Sodium (140-148) mmol/L Potassium (3.6-5.2) mmol/L Chloride (100-108) mmol/L Carbon Dioxide (21-32) mmol/L Anion Gap (5.0-14.0) mmol/L BUN (7-18) mg/dL Creatinine (0.6-1.0) mg/dL Est Cr Clr Drug Dosing mL/min Estimated GFR (MDRD) (>60) Glucose (74-106) mg/dL Lactic Acid 1.3 (0.4-2.0) mmol/L Calcium (8.5-10.1) mg/dL Magnesium (1.8-2.4) mg/dL Procalcitonin 1.22 ng/mL 05/01/21 Range/Units 05:20 WBC (4.5-11.0) K/uL RBC (3.30-5.50) M/uL Hgb (12.0-15.0) g/dL Hct (36.0-48.0) % MCV (80-98) fL MCH (27-31) pg MCHC (32-36) % Plt Count (150-400) K/uL Neut % (Auto) (36-66) % Lymph % (Auto) (24-44) % Morrow % (Auto) (2-6) % Eos % (Auto) (2-4) % Baso % (Auto) (0-1) % Sodium 140 (140-148) mmol/L Potassium 3.4 L (3.6-5.2) mmol/L Chloride 104 (100-108) mmol/L Carbon Dioxide 23 (21-32) mmol/L Anion Gap 16.4 H (5.0-14.0) mmol/L BUN 9 (7-18) mg/dL Creatinine 1.0 (0.6-1.0) mg/dL Est Cr Clr Drug Dosing 64.31 mL/min Estimated GFR (MDRD) > 60 (>60) Glucose 118 H (74-106) mg/dL Lactic Acid (0.4-2.0) mmol/L Calcium 7.6 L (8.5-10.1) mg/dL Magnesium 1.3 L D (1.8-2.4) mg/dL Procalcitonin ng/mL Onesimo Results Last 24 Hours: Microbiology 04/30/21 11:30 Aerobic Blood Culture - Preliminary Blood - Arm, Left NO GROWTH AFTER 1 DAY Anaerobic Blood Culture - Preliminary NO GROWTH AFTER 1 DAY 05/01/21 07:46 Gram Stain - Final Catheter Site - Marquez Line 04/30/21 11:50 Aerobic Blood Culture - Preliminary Blood - Central Line Anaerobic Blood Culture - Preliminary 04/30/21 15:33 Urine Culture - Preliminary Urine, Clean Catch Med Orders - Current: Current Medications Calcium Carbonate/Glycine (Calcium Carbonate 500 Mg Tab.Chew) 500 mg PO DAILY [facility] Last Admin: 05/01/21 10:03 Dose: 500 mg Documented by: Cetirizine HCl (Cetirizine 10 Mg Tab) 10 mg PO DAILY PRN PRN Reason: Allergies Cholecalciferol (Cholecalciferol (Vitamin D3) 25 Mcg Tab) 125 mcg PO DAILY [facility] Last Admin: 05/01/21 10:04 Dose: 125 mcg Documented by: Cyanocobalamin (Cyanocobalamin (Vitamin B12) 1,000 Mcg Tab) 1,000 mcg SL DAILY [facility] Last Admin: 05/01/21 10:03 Dose: 1,000 mcg Documented by: Duloxetine HCl (Duloxetine 30 Mg Cap) 60 mg PO DAILY [facility] Last Admin: 05/01/21 10:03 Dose: 60 mg Documented by: Enoxaparin Sodium (Enoxaparin 100 Mg/1 Ml Syringe) 100 mg SUBCUT DAILY [facility] Last Admin: 05/01/21 10:04 Dose: 100 mg Documented by: Piperacillin/Tazobactam/ (Dextrose 3.375 gm/ Premix) 50 mls @ 100 mls/hr IV Q6H [facility] Last Admin: 05/01/21 10:07 Dose: 100 mls/hr Documented by: Vancomycin HCl 2 gm/ Sodium (Chloride) 500 mls @ 250 mls/hr IV Q8H [facility] Last Admin: 05/01/21 05:29 Dose: 250 mls/hr Documented by: Aztreonam 1 gm/ Sodium (Chloride) 50 mls @ 100 mls/hr IV Q8H [facility] Last Admin: 05/01/21 09:09 Dose: 100 mls/hr Documented by: Magnesium Sulfate 2 gm/ Premix 50 mls @ 25 mls/hr IV Q6H [facility] Stop: 05/02/21 00:29 Last Admin: 05/01/21 10:09 Dose: 25 mls/hr Documented by: Potassium Chloride 20 meq/Lidocaine HCl 2 ml/ Sodium Chloride 112 mls @ 56 mls/hr IV Q2H [facility] Stop: 05/01/21 15:59 Last Admin: 05/01/21 11:57 Dose: 56 mls/hr Documented by: Levothyroxine Sodium (Levothyroxine 100 Mcg Tab) 100 mcg PO ACBREAKFAST [facility] Last Admin: 05/01/21 10:03 Dose: 100 mcg Documented by: Multivitamins/Iron (Multivitamins With Iron Tab.Chew) 1 tab CHEW BID [facility] Last Admin: 05/01/21 10:03 Dose: 1 tab Documented by: Ondansetron HCl (Ondansetron 4 Mg/2 Ml Sdv) 4 mg IV Q4H PRN PRN Reason: Nausea/Vomiting Last Admin: 05/01/21 10:20 Dose: 4 mg Documented by: Pantoprazole Sodium (Pantoprazole 40 Mg Delayed-Release Granules 1 Packet) 40 mg PO Q24H [facility] Last Admin: 05/01/21 10:02 Dose: 40 mg Documented by: Pregabalin (Pregabalin 75 Mg Cap) 150 mg PO BID [facility] Last Admin: 05/01/21 10:06 Dose: 150 mg Documented by: Sodium Chloride (Sodium Chloride 0.9% 10 Ml Syringe) 10 ml FLUSH ASDIRECTED PRN PRN Reason: Keep Vein Open Vitamin B Complex (Vitamin B Complex Tab) 1 each PO DAILY [facility] Last Admin: 05/01/21 10:03 Dose: 1 each Documented by: Discontinued Medications Bupivacaine HCl (Bupivacaine 0.5% 50 Ml Mdv) Confirm Administered Dose 50 ml .ROUTE .STK-MED ONE Stop: 05/01/21 06:44 Last Admin: 05/01/21 07:42 Dose: 10 ml Documented by: Fentanyl (Fentanyl 100 Mcg/2 Ml Sdv) Confirm Administered Dose 100 mcg .ROUTE .STK-MED ONE Stop: 05/01/21 07:17 Sodium Chloride (Normal Saline) 1,000 mls @ 1,000 mls/hr IV .BOLUS ONE Stop: 04/30/21 12:20 Last Admin: 04/30/21 12:33 Dose: 1,000 mls/hr Documented by: Vancomycin HCl 2 gm/ Sodium (Chloride) 500 mls @ 250 mls/hr IV ONETIME ONE Stop: 04/30/21 15:59 Last Admin: 04/30/21 13:26 Dose: 250 mls/hr Documented by: Lactated Ringer's (Ringers, Lactated) 1,000 mls @ 125 mls/hr IV ASDIRECTED [facility] Last Admin: 05/01/21 03:50 Dose: 125 mls/hr Documented by: Lactated Ringer's (Ringers, Lactated) 1,000 mls @ 999 mls/hr IV ASDIRECTED [facility] Stop: 04/30/21 16:44 Last Admin: 04/30/21 16:02 Dose: 999 mls/hr Documented by: Ibuprofen (Ibuprofen 400 Mg Tab) 400 mg PO ONETIME ONE Stop: 05/01/21 00:09 Last Admin: 05/01/21 00:35 Dose: 400 mg Documented by: Ibuprofen (Ibuprofen 400 Mg Tab) Confirm Administered Dose 400 mg .ROUTE .STK- MED ONE Stop: 05/01/21 00:29 Last Admin: 05/01/21 02:21 Dose: Not Given Documented by: Lidocaine/Epinephrine (Lidocaine 1% With Epinephrine 1:100,000 50 Ml Mdv) Con firm Administered Dose 50 ml .ROUTE .STK-MED ONE Stop: 05/01/21 06:44 Last Admin: 05/01/21 07:42 Dose: 10 ml Documented by: Midazolam HCl (Midazolam 1 Mg/Ml 2 Ml Sdv) Confirm Administered Dose 2 mg .ROUTE .STK-MED ONE Stop: 05/01/21 07:17 Oxycodone HCl (Oxycodone 5 Mg Tab) 5 mg PO Q4H PRN PRN Reason: Pain (moderate 4-6) Pantoprazole Sodium (Pantoprazole 40 Mg Vial) 40 mg IVPUSH ONETIME ONE Stop: 04/30/21 13:57 Last Admin: 04/30/21 14:04 Dose: 40 mg Documented by: Potassium Chloride (Potassium Chloride 20 Meq Tab.Er) 40 meq PO ONETIME ONE Stop: 05/01/21 08:31 Last Admin: 05/01/21 10:02 Dose: 40 meq Documented by: Propofol (Propofol 200 Mg/20 Ml Sdv) Confirm Administered Dose 200 mg .ROUTE .STK-MED ONE Stop: 05/01/21 07:17 Vancomycin HCl (Vancomycin 1 Gm Sdv) 0 gm IV .PHARMACY TO DOSE [facility] Vancomycin HCl (Vancomycin 1 Gm Sdv) 1 gm IV .PHARMACY TO DOSE MAURICE - Exam Quality Assessment: DVT Prophylaxis General: Alert, Oriented, Cooperative, Moderate Distress Lungs: Clear to Auscultation, Normal Respiratory Effort Cardiovascular: Regular Rate, Regular Rhythm, No Murmurs GI/Abdominal Exam: Soft, Non-Tender, No Organomegaly, No Distention Extremities: Non-Tender - Patient Data Lab Results Last 24 hrs: Laboratory Results - last 24 hr 04/30/21 04/30/21 05/01/21 Range/Units 11:50 12:56 05:20 WBC 6.3 (4.5-11.0) K/uL RBC 4.27 (3.30-5.50) M/uL Hgb 12.3 (12.0-15.0) g/dL Hct 37.8 (36.0-48.0) % MCV 89 (80-98) fL MCH 29 (27-31) pg MCHC 33 (32-36) % Plt Count 167 (150-400) K/uL Neut % (Auto) 80.6 H (36-66) % Lymph % (Auto) 11.9 L (24-44) % Morrow % (Auto) 7.0 H (2-6) % Eos % (Auto) 0.2 L (2-4) % Baso % (Auto) 0.3 (0-1) % Sodium (140-148) mmol/L Potassium (3.6-5.2) mmol/L Chloride (100-108) mmol/L Carbon Dioxide (21-32) mmol/L Anion Gap (5.0-14.0) mmol/L BUN (7-18) mg/dL Creatinine (0.6-1.0) mg/dL Est Cr Clr Drug Dosing mL/min Estimated GFR (MDRD) (>60) Glucose (74-106) mg/dL Lactic Acid 1.3 (0.4-2.0) mmol/L Calcium (8.5-10.1) mg/dL Magnesium (1.8-2.4) mg/dL Procalcitonin 1.22 ng/mL 05/01/21 Range/Units 05:20 WBC (4.5-11.0) K/uL RBC (3.30-5.50) M/uL Hgb (12.0-15.0) g/dL Hct (36.0-48.0) % MCV (80-98) fL MCH (27-31) pg MCHC (32-36) % Plt Count (150-400) K/uL Neut % (Auto) (36-66) % Lymph % (Auto) (24-44) % Morrow % (Auto) (2-6) % Eos % (Auto) (2-4) % Baso % (Auto) (0-1) % Sodium 140 (140-148) mmol/L Potassium 3.4 L (3.6-5.2) mmol/L Chloride 104 (100-108) mmol/L Carbon Dioxide 23 (21-32) mmol/L Anion Gap 16.4 H (5.0-14.0) mmol/L BUN 9 (7-18) mg/dL Creatinine 1.0 (0.6-1.0) mg/dL Est Cr Clr Drug Dosing 64.31 mL/min Estimated GFR (MDRD) > 60 (>60) Glucose 118 H (74-106) mg/dL Lactic Acid (0.4-2.0) mmol/L Calcium 7.6 L (8.5-10.1) mg/dL Magnesium 1.3 L D (1.8-2.4) mg/dL Procalcitonin ng/mL Result Diagrams: 05/01/21 05:20 05/01/21 05:20 Onesimo Results Last 24 hrs: Microbiology 04/30/21 11:30 Aerobic Blood Culture - Preliminary Blood - Arm, Left NO GROWTH AFTER 1 DAY Anaerobic Blood Culture - Preliminary NO GROWTH AFTER 1 DAY 05/01/21 07:46 Gram Stain - Final Catheter Site - Marquez Line 04/30/21 11:50 Aerobic Blood Culture - Preliminary Blood - Central Line Anaerobic Blood Culture - Preliminary 04/30/21 15:33 Urine Culture - Preliminary Urine, Clean Catch Sepsis Event Note - Evaluation Sepsis Screening Result: No Definite Risk - Focused Exam Vital Signs: Vital Signs Temp Temp Temp Pulse Resp BP BP 05/01/21 12:00 98 F 18 112/58 L 05/01/21 10:00 99.9 F 22 H 104/59 L 05/01/21 09:30 23 H 105/59 L 05/01/21 09:15 22 H 112/58 L 05/01/21 09:00 22 H 120/66 05/01/21 08:45 22 H 125/64 05/01/21 08:30 98 F 22 H 83/64 L 05/01/21 08:10 98.2 F 122 H 22 H 106/65 05/01/21 08:05 123 H 24 H 108/72 05/01/21 08:00 121 H 24 H 92/72 05/01/21 07:55 114 H 22 H 112/72 05/01/21 07:50 97.9 F 115 H 27 H 97/79 05/01/21 06:00 23 H 102/61 05/01/21 04:00 97.9 F 27 H 101/53 L 05/01/21 02:00 99.3 F 28 H 102/46 L 05/01/21 01:35 99.3 F 05/01/21 01:00 22 H 100/50 L 05/01/21 00:35 102.7 F H Pulse Ox 05/01/21 12:00 93 L 05/01/21 10:00 93 L 05/01/21 09:30 92 L 05/01/21 09:15 95 05/01/21 09:00 94 L 05/01/21 08:45 96 05/01/21 08:30 95 05/01/21 08:10 95 05/01/21 08:05 96 05/01/21 08:00 97 05/01/21 07:55 97 05/01/21 07:50 97 05/01/21 06:00 93 L 05/01/21 04:00 90 L 05/01/21 02:00 90 L 05/01/21 01:35 05/01/21 01:00 91 L 05/01/21 00:35 - Problem List Review Problem List Initiated/Reviewed/Updated: Yes - My Orders Last 24 Hours: My Active Orders 04/30/21 14:01 Resuscitation Status Routine 04/30/21 14:43 Cetirizine [ZyrTEC] 10 mg PO DAILY PRN Ondansetron [Zofran] 4 mg IV Q4H PRN Sodium Chloride 0.9% [Saline Flush] 10 ml FLUSH ASDIRECTED PRN 04/30/21 14:43 Patient Status [ADT] Routine Ambulate [RC] QID Cardiac Monitoring [RC] Q6H Height and Weight [RC] DAILY Intake and Output [RC] QSHIFT Notify Provider Consults [RC] ASDIRECTED Notify Provider Vital Signs [RC] ASDIRECTED Oxygen Therapy [RC] PRN Peripheral IV Care [RC] . DIRECTED Up to Chair [RC] QID Vital Signs [RC] Q2H Consult to Physician [CONS] Routine Peripheral IV Insertion Adult [OM.PC] Routine 04/30/21 15:33 CULTURE URINE [RM] Stat 04/30/21 16:00 Piperacillin/Tazobactam/Dext [Zosyn in Dextrose Iso-Osmotic 3.375 GM/50 ML] 3.375 gm Premix Bag 1 bag IV Q6H 04/30/21 21:00 Multivitamins with Iron [Child Chew Iron] 1 tab CHEW BID Pregabalin [Lyrica] 150 mg PO BID 04/30/21 22:00 Vancomycin 2 gm Sodium Chloride 0.9% [Normal Saline] 500 ml IV Q8H 05/01/21 07:00 Pantoprazole [ProTONIX Granules] 40 mg PO Q24H 05/01/21 07:30 Levothyroxine [Synthroid] 100 mcg PO ACBREAKFAST 05/01/21 09:00 Calcium Carbonate [Tums] 500 mg PO DAILY Cholecalciferol (Vitamin D3) [Vitamin D3] 125 mcg PO DAILY Cyanocobalamin (Vitamin B12) [Vitamin B12] 1,000 mcg SL DAILY DULoxetine [Cymbalta] 60 mg PO DAILY Enoxaparin [Lovenox] 100 mg SUBCUT DAILY Vitamin B Complex 1 each PO DAILY 05/01/21 10:30 Magnesium Sulfate/Water [Magnesium Sulfate in Water 2 GM/50 ML] 2 gm Premix Bag 1 bag IV Q6H 05/01/21 12:00 Potassium Chloride 20 meq Lidocaine 1% [Xylocaine 1%] 2 ml Sodium Chloride 0.9% [Normal Saline] 100 ml IV Q2H 05/01/21 12:12 Convert IV to Saline Lock [OM.PC] Routine 05/01/21 13:30 VANCOMYCIN TROUGH [CHEM] Routine - Plan Plan:: ASSESSMENT AND PLAN FEVER WITH EARLY SEPSIS-recurrent fever since admission with associated tachycardia. 1 set of blood cultures and urine culture growing gram-negative richard, final ID and sensitivities are pending. Status post Marquez catheter removal earlier this morning by Dr. Allison -Blood cultures obtained in ED -Saline lock IV -Urine culture -Surgical follow-up per Dr. lAlison -IV vancomycin and Zosyn, pending culture results STATUS POST PREVIOUS ISABEL-EN-Y GASTRIC BYPASS SURGERY-complicated by leak and abscess requiring further surgery -Postoperative care per Dr. Allison HYPOMAGNESEMIA -IV magnesium replacement -Follow-up magnesium level in a.m. MAINTENANCE ISSUES -DVT prophylaxis; not indicated -GI prophylaxis; continue outpatient PPI therapy -Sinha catheter; not indicated -Nutrition; regular diet -Nicotine dependence; not required CODE STATUS-FULL CODE ADMISSION STATUS-patient will be admitted to inpatient status, expect at least a 2 night hospital stay for evaluation and management of problems as outlined above. At the time of this admission I do not reasonably expected evaluation and management of this problem will require more than a 96 hour hospital stay. DISPOSITION-anticipate discharge to home after the hospital stay. PRIMARY CARE PROVIDER-Dr. Allison
[2021-05-01] MEDS ORDERED: LORazepam 2 MG/ML SDV ONE (16:26)
[2021-05-01] MEDS: LORazepam 2 MG/ML SDV IVPUSH PRN ×2 (16:32→21:54)
[2021-05-02] MEDS: Ondansetron 4 MG/2 ML SDV IV PRN ×4 (02:28→21:08)
[2021-05-02] MEDS: Piperacillin/Tazobactam/Dext 3.375 GM in Premix Bag 1 BAG IV SCH ×2 (04:19→10:07)
[2021-05-02] MEDS: Vancomycin 2 GM in Sodium Chloride 0.9% 500 ML IV SCH (06:08)
[2021-05-02] MEDS ORDERED: Aluminum Hydroxide/Magnesium Hydroxide/Simethicone Susp 30 ML Cup PO PRN (07:24)
[2021-05-02] MEDS ORDERED: Scopolamine 1.5 MG Transdermal Patch TOP SCH (08:00)
[2021-05-02] MEDS: Pantoprazole 40 MG Delayed-Release Granules 1 Packet PO SCH (08:37)
[2021-05-02] MEDS: Levothyroxine 100 MCG Tab PO SCH (08:37)
[2021-05-02] MEDS: DULoxetine 30 MG Cap PO SCH (08:37)
[2021-05-02] MEDS: Enoxaparin 100 MG/1 ML Syringe SUBCUT SCH (08:37)
[2021-05-02] MEDS: Docusate Sodium 100 MG Cap PO SCH ×3 (09:00→21:02)
[2021-05-02] MEDS: Cyanocobalamin (Vitamin B12) 1,000 MCG Tab SL SCH (09:00)
[2021-05-02] MEDS: Cholecalciferol (Vitamin D3) 25 MCG Tab PO SCH (09:00)
[2021-05-02] MEDS: Multivitamins with Iron Tab.Chew CHEW SCH ×2 (09:00→21:01)
[2021-05-02] MEDS: Vitamin B Complex Tab PO SCH (09:00)
[2021-05-02] MEDS: Bisacodyl 5 MG Tab PO SCH ×3 (09:00→21:02)
[2021-05-02] MEDS: Metoclopramide 10 MG/2 ML SDV IV SCH ×3 (09:07→19:25)
[2021-05-02] MEDS: Pregabalin 75 MG Cap PO SCH ×2 (09:11→21:01)
[2021-05-02] MEDS: VERIFY SCOP PATCH TOP SCH (09:25)
[2021-05-02] MEDS: Calcium Carbonate 500 MG Tab.Chew PO SCH (09:26)
--- NOTE | 2021-05-02 11:12 | PCM.PN ---
- General Info Date of Service: 05/02/21 Subjective Update: Ms. Alejandre feels significantly improved over the last 24 hours, energy level is better and her appetite seems to be improving. She has been afebrile and vital signs have been within desired range. Enterobacter is growing from blood cultures and E. coli from the urine. Cultures from central line are showing no growth. Functional Status: Reports: Ambulating, Urinating - Review of Systems General: Reports: Weakness, Fatigue. Denies: Fever, Chills Pulmonary: Reports: No Symptoms Cardiovascular: Reports: No Symptoms Gastrointestinal: Reports: No Symptoms Genitourinary: Reports: No Symptoms - Patient Data Vitals - Most Recent: Last Vital Signs Temp 97.8 F 05/02/21 04:00 Pulse 88 05/02/21 00:00 Resp 21 H 05/02/21 06:00 BP 114/63 05/02/21 06:00 Pulse Ox 92 L 05/02/21 06:00 Weight - Most Recent: 480 lb I&O - Last 24 Hours: Intake & Output 05/01/21 05/02/21 05/02/21 22:59 06:59 14:59 Intake Total 1530 929 Output Total 300 275 200 Balance 1230 654 -200 Lab Results Last 24 Hours: Laboratory Results - last 24 hr 05/01/21 05/02/21 05/02/21 Range/Units 13:40 04:30 04:30 WBC 3.0 L (4.5-11.0) K/uL RBC 4.15 (3.30-5.50) M/uL Hgb 11.6 L (12.0-15.0) g/dL Hct 36.9 (36.0-48.0) % MCV 89 (80-98) fL MCH 28 (27-31) pg MCHC 31 L (32-36) % Plt Count 141 L (150-400) K/uL Sodium 141 (140-148) mmol/L Potassium 3.6 (3.6-5.2) mmol/L Chloride 106 (100-108) mmol/L Carbon Dioxide 28 (21-32) mmol/L Anion Gap 6.9 (5.0-14.0) mmol/L BUN 9 (7-18) mg/dL Creatinine 0.9 (0.6-1.0) mg/dL Est Cr Clr Drug Dosing 71.46 mL/min Estimated GFR (MDRD) > 60 (>60) Glucose 112 H (74-106) mg/dL Calcium 7.7 L (8.5-10.1) mg/dL Phosphorus 3.1 (2.5-4.9) mg/dL Magnesium 2.6 H D (1.8-2.4) mg/dL Total Bilirubin 0.5 (0.2-1.0) mg/dL AST 23 (15-37) U/L ALT 28 (12-78) U/L Alkaline Phosphatase 59 (46-116) U/L Total Protein 6.7 (6.4-8.2) g/dL Albumin 2.1 L (3.4-5.0) g/dL Globulin 4.6 H (2.3-3.5) g/dL Albumin/Globulin Ratio 0.5 L (1.2-2.2) Vancomycin Trough 20.0 (10.0-20.0) ug/mL Onesimo Results Last 24 Hours: Microbiology 05/01/21 07:46 Gram Stain - Final Catheter Site - Marquez Line Wound Culture - Preliminary NO GROWTH AFTER 1 DAY Anaerobic Culture - Preliminary NO GROWTH AFTER 1 DAY 04/30/21 11:50 Aerobic Blood Culture - Final Blood - Central Line Enterobacter Dissolvens Anaerobic Blood Culture - Final Enterobacter Dissolvens 04/30/21 15:33 Urine Culture - Final Urine, Clean Catch Escherichia Coli 04/30/21 11:30 Aerobic Blood Culture - Preliminary Blood - Arm, Left NO GROWTH AFTER 1 DAY Anaerobic Blood Culture - Preliminary NO GROWTH AFTER 1 DAY Med Orders - Current: Current Medications Al Hydroxide/Mg Hydroxide (Aluminum Hydroxide/Magnesium Hydroxide/Simethicone Susp 30 Ml Cup) 30 ml PO Q3H PRN PRN Reason: NAUSEA Bisacodyl (Bisacodyl 5 Mg Tab) 10 mg PO BID [facility] Calcium Carbonate/Glycine (Calcium Carbonate 500 Mg Tab.Chew) 500 mg PO DAILY [facility] Last Admin: 05/02/21 09:26 Dose: 500 mg Documented by: Cetirizine HCl (Cetirizine 10 Mg Tab) 10 mg PO DAILY PRN PRN Reason: Allergies Cholecalciferol (Cholecalciferol (Vitamin D3) 25 Mcg Tab) 125 mcg PO DAILY [facility] Last Admin: 05/01/21 10:04 Dose: 125 mcg Documented by: Cyanocobalamin (Cyanocobalamin (Vitamin B12) 1,000 Mcg Tab) 1,000 mcg SL DAILY [facility] Last Admin: 05/01/21 10:03 Dose: 1,000 mcg Documented by: Docusate Sodium (Docusate Sodium 100 Mg Cap) 100 mg PO BID [facility] Duloxetine HCl (Duloxetine 30 Mg Cap) 60 mg PO DAILY [facility] Last Admin: 05/02/21 08:37 Dose: 60 mg Documented by: Enoxaparin Sodium (Enoxaparin 100 Mg/1 Ml Syringe) 100 mg SUBCUT DAILY [facility] Last Admin: 05/02/21 08:37 Dose: 100 mg Documented by: Ceftriaxone Sodium 2 gm/ (Sodium Chloride) 50 mls @ 100 mls/hr IV Q24H [facility] Levothyroxine Sodium (Levothyroxine 100 Mcg Tab) 100 mcg PO ACBREAKFAST [facility] Last Admin: 05/02/21 08:37 Dose: 100 mcg Documented by: Lorazepam (Lorazepam 2 Mg/Ml Sdv) 0.5 mg IVPUSH Q4H PRN PRN Reason: Nausea Last Admin: 05/01/21 21:54 Dose: 0.5 mg Documented by: Metoclopramide HCl (Metoclopramide 10 Mg/2 Ml Sdv) 10 mg IV Q6H [facility] Last Admin: 05/02/21 09:07 Dose: 10 mg Documented by: Multivitamins/Iron (Multivitamins With Iron Tab.Chew) 1 tab CHEW BID [facility] Last Admin: 05/01/21 21:10 Dose: Not Given Documented by: Verify Scop Patch 0 each TOP DAILY [facility] Last Admin: 05/02/21 09:25 Dose: 1 each Documented by: Ondansetron HCl (Ondansetron 4 Mg/2 Ml Sdv) 4 mg IV Q4H PRN PRN Reason: Nausea/Vomiting Last Admin: 05/02/21 09:22 Dose: 4 mg Documented by: Pantoprazole Sodium (Pantoprazole 40 Mg Delayed-Release Granules 1 Packet) 40 mg PO Q24H [facility] Last Admin: 05/02/21 08:37 Dose: 40 mg Documented by: Pregabalin (Pregabalin 75 Mg Cap) 150 mg PO BID [facility] Last Admin: 05/02/21 09:11 Dose: 150 mg Documented by: Scopolamine (Scopolamine 1.5 Mg Transdermal Patch) 1.5 mg TOP Q72H [facility] Last Admin: 05/02/21 08:38 Dose: 1.5 mg Documented by: Sodium Chloride (Sodium Chloride 0.9% 10 Ml Syringe) 10 ml FLUSH ASDIRECTED PRN PRN Reason: Keep Vein Open Vitamin B Complex (Vitamin B Complex Tab) 1 each PO DAILY [facility] Last Admin: 05/01/21 10:03 Dose: 1 each Documented by: Discontinued Medications Bupivacaine HCl (Bupivacaine 0.5% 50 Ml Mdv) Confirm Administered Dose 50 ml .ROUTE .STK-MED ONE Stop: 05/01/21 06:44 Last Admin: 05/01/21 07:42 Dose: 10 ml Documented by: Fentanyl (Fentanyl 100 Mcg/2 Ml Sdv) Confirm Administered Dose 100 mcg .ROUTE .STK-MED ONE Stop: 05/01/21 07:17 Sodium Chloride (Normal Saline) 1,000 mls @ 1,000 mls/hr IV .BOLUS ONE Stop: 04/30/21 12:20 Last Admin: 04/30/21 12:33 Dose: 1,000 mls/hr Documented by: Vancomycin HCl 2 gm/ Sodium (Chloride) 500 mls @ 250 mls/hr IV ONETIME ONE Stop: 04/30/21 15:59 Last Admin: 04/30/21 13:26 Dose: 250 mls/hr Documented by: Lactated Ringer's (Ringers, Lactated) 1,000 mls @ 125 mls/hr IV ASDIRECTED [facility] Last Admin: 05/01/21 03:50 Dose: 125 mls/hr Documented by: Piperacillin/Tazobactam/ (Dextrose 3.375 gm/ Premix) 50 mls @ 100 mls/hr IV Q6H [facility] Last Admin: 05/02/21 10:07 Dose: 100 mls/hr Documented by: Lactated Ringer's (Ringers, Lactated) 1,000 mls @ 999 mls/hr IV ASDIRECTED [facility] Stop: 04/30/21 16:44 Last Admin: 04/30/21 16:02 Dose: 999 mls/hr Documented by: Vancomycin HCl 2 gm/ Sodium (Chloride) 500 mls @ 250 mls/hr IV Q8H [facility] Last Admin: 05/01/21 05:29 Dose: 250 mls/hr Documented by: Aztreonam 1 gm/ Sodium (Chloride) 50 mls @ 100 mls/hr IV Q8H [facility] Last Admin: 05/02/21 09:09 Dose: 100 mls/hr Documented by: Magnesium Sulfate 2 gm/ Premix 50 mls @ 25 mls/hr IV Q6H [facility] Stop: 05/02/21 00:29 Last Admin: 05/01/21 22:42 Dose: 25 mls/hr Documented by: Potassium Chloride 20 meq/Lidocaine HCl 2 ml/ Sodium Chloride 112 mls @ 56 mls/hr IV Q2H [facility] Stop: 05/01/21 15:59 Last Admin: 05/01/21 14:13 Dose: 56 mls/hr Documented by: Vancomycin HCl 2 gm/ Sodium (Chloride) 500 mls @ 250 mls/hr IV Q12H [facility] Stop: 05/02/21 08:30 Last Admin: 05/02/21 06:08 Dose: 250 mls/hr Documented by: Ibuprofen (Ibuprofen 400 Mg Tab) 400 mg PO ONETIME ONE Stop: 05/01/21 00:09 Last Admin: 05/01/21 00:35 Dose: 400 mg Documented by: Ibuprofen (Ibuprofen 400 Mg Tab) Confirm Administered Dose 400 mg .ROUTE .STK- MED ONE Stop: 05/01/21 00:29 Last Admin: 05/01/21 02:21 Dose: Not Given Documented by: Lidocaine/Epinephrine (Lidocaine 1% With Epinephrine 1:100,000 50 Ml Mdv) Confirm Administered Dose 50 ml .ROUTE .STK-MED ONE Stop: 05/01/21 06:44 Last Admin: 05/01/21 07:42 Dose: 10 ml Documented by: Lorazepam (Lorazepam 2 Mg/Ml Sdv) Confirm Administered Dose 2 mg .ROUTE .STK-MED ONE Stop: 05/01/21 16:27 Last Admin: 05/01/21 16:32 Dose: Not Given Documented by: Midazolam HCl (Midazolam 1 Mg/Ml 2 Ml Sdv) Confirm Administered Dose 2 mg .ROUTE .STK-MED ONE Stop: 05/01/21 07:17 Oxycodone HCl (Oxycodone 5 Mg Tab) 5 mg PO Q4H PRN PRN Reason: Pain (moderate 4-6) Pantoprazole Sodium (Pantoprazole 40 Mg Vial) 40 mg IVPUSH ONETIME ONE Stop: 04/30/21 13:57 Last Admin: 04/30/21 14:04 Dose: 40 mg Documented by: Potassium Chloride (Potassium Chloride 20 Meq Tab.Er) 40 meq PO ONETIME ONE Stop: 05/01/21 08:31 Last Admin: 05/01/21 10:02 Dose: 40 meq Documented by: Propofol (Propofol 200 Mg/20 Ml Sdv) Confirm Administered Dose 200 mg .ROUTE .STK-MED ONE Stop: 05/01/21 07:17 Vancomycin HCl (Vancomycin 1 Gm Sdv) 0 gm IV .PHARMACY TO DOSE [facility] Vancomycin HCl (Vancomycin 1 Gm Sdv) 1 gm IV .PHARMACY TO DOSE [facility]URICE - Exam Quality Assessment: DVT Prophylaxis General: Alert, Oriented, Cooperative, Mild Distress Lungs: Clear to Auscultation, Normal Respiratory Effort Cardiovascular: Regular Rate, Regular Rhythm, No Murmurs GI/Abdominal Exam: Soft, Non-Tender, No Organomegaly, No Distention Extremities: Non-Tender, No Pedal Edema - Patient Data Lab Results Last 24 hrs: Laboratory Results - last 24 hr 05/01/21 05/02/21 05/02/21 Range/Units 13:40 04:30 04:30 WBC 3.0 L (4.5-11.0) K/uL RBC 4.15 (3.30-5.50) M/uL Hgb 11.6 L (12.0-15.0) g/dL Hct 36.9 (36.0-48.0) % MCV 89 (80-98) fL MCH 28 (27-31) pg MCHC 31 L (32-36) % Plt Count 141 L (150-400) K/uL Sodium 141 (140-148) mmol/L Potassium 3.6 (3.6-5.2) mmol/L Chloride 106 (100-108) mmol/L Carbon Dioxide 28 (21-32) mmol/L Anion Gap 6.9 (5.0-14.0) mmol/L BUN 9 (7-18) mg/dL Creatinine 0.9 (0.6-1.0) mg/dL Est Cr Clr Drug Dosing 71.46 mL/min Estimated GFR (MDRD) > 60 (>60) Glucose 112 H (74-106) mg/dL Calcium 7.7 L (8.5-10.1) mg/dL Phosphorus 3.1 (2.5-4.9) mg/dL Magnesium 2.6 H D (1.8-2.4) mg/dL Total Bilirubin 0.5 (0.2-1.0) mg/dL AST 23 (15-37) U/L ALT 28 (12-78) U/L Alkaline Phosphatase 59 (46-116) U/L Total Protein 6.7 (6.4-8.2) g/dL Albumin 2.1 L (3.4-5.0) g/dL Globulin 4.6 H (2.3-3.5) g/dL Albumin/Globulin Ratio 0.5 L (1.2-2.2) Vancomycin Trough 20.0 (10.0-20.0) ug/mL Result Diagrams: 05/02/21 04:30 05/02/21 04:30 Onesimo Results Last 24 hrs: Microbiology 05/01/21 07:46 Gram Stain - Final Catheter Site - Marquez Line Wound Culture - Preliminary NO GROWTH AFTER 1 DAY Anaerobic Culture - Preliminary NO GROWTH AFTER 1 DAY 04/30/21 11:50 Aerobic Blood Culture - Final Blood - Central Line Enterobacter Dissolvens Anaerobic Blood Culture - Final Enterobacter Dissolvens 04/30/21 15:33 Urine Culture - Final Urine, Clean Catch Escherichia Coli 04/30/21 11:30 Aerobic Blood Culture - Preliminary Blood - Arm, Left NO GROWTH AFTER 1 DAY Anaerobic Blood Culture - Preliminary NO GROWTH AFTER 1 DAY Sepsis Event Note - Evaluation Sepsis Screening Result: No Definite Risk - Focused Exam Vital Signs: Vital Signs Temp Pulse Resp BP Pulse Ox 05/02/21 06:00 21 H 114/63 92 L 05/02/21 04:00 97.8 F 28 H 115/67 93 L 05/02/21 02:00 20 118/78 92 L 05/02/21 00:00 98 F 88 19 111/75 92 L - Problem List Review Problem List Initiated/Reviewed/Updated: Yes - My Orders Last 24 Hours: My Active Orders 05/01/21 12:12 Convert IV to Saline Lock [OM.PC] Routine 05/01/21 16:20 LORazepam [Ativan] 0.5 mg IVPUSH Q4H PRN 05/02/21 11:15 cefTRIAXone [Rocephin] 2 gm Sodium Chloride 0.9% [Normal Saline] 50 ml IV Q24H - Plan Plan:: ASSESSMENT AND PLAN FEVER WITH EARLY SEPSIS-recurrent fever since admission with associated tachycardia. Blood cultures are growing out Enterobacter and urine culture growing out E. coli. Cultures from central line are showing no growth thus far -Saline lock IV -Urine culture -Surgical follow-up per Dr. Allison -Discontinue IV vancomycin, Azactam, and Zosyn -Ceftriaxone 2 g IV every 24 hours -Continue IV antibiotic therapy until she has been afebrile for a period of 48 hours and then could be switched to oral antibiotic with a total course of therapy of 10 days STATUS POST PREVIOUS ISABEL-EN-Y GASTRIC BYPASS SURGERY-complicated by leak and abscess requiring further surgery -Postoperative care per Dr. Allison HYPOMAGNESEMIA-resolved MAINTENANCE ISSUES -DVT prophylaxis; not indicated -GI prophylaxis; continue outpatient PPI therapy -Sinha catheter; not indicated -Nutrition; regular diet -Nicotine dependence; not required CODE STATUS-FULL CODE ADMISSION STATUS-patient will be admitted to inpatient status, expect at least a 2 night hospital stay for evaluation and management of problems as outlined above. At the time of this admission I do not reasonably expected evaluation and management of this problem will require more than a 96 hour hospital stay. DISPOSITION-anticipate discharge to home after the hospital stay. PRIMARY CARE PROVIDER-Dr. Allison
[2021-05-02] MEDS ORDERED: cefTRIAXone 2 GM in Sodium Chloride 0.9% 50 ML IV SCH ×2 (11:15→14:00)
[2021-05-02] MEDS ORDERED: cefTRIAXone 2 GM in Sodium Chloride 0.9% 100 ML IV ONE (13:00)
[2021-05-03] MEDS: Metoclopramide 10 MG/2 ML SDV IV SCH ×3 (02:09→14:45)
[2021-05-03] MEDS: Ondansetron 4 MG/2 ML SDV IV PRN (02:37)
[2021-05-03] MEDS ORDERED: Ketorolac 30 MG/ML SDV IVPUSH PRN (07:03)
[2021-05-03] MEDS: Levothyroxine 100 MCG Tab PO SCH (08:27)
[2021-05-03] MEDS: Pantoprazole 40 MG Delayed-Release Granules 1 Packet PO SCH (08:27)
[2021-05-03] MEDS: Pregabalin 75 MG Cap PO SCH (08:28)
[2021-05-03] MEDS: DULoxetine 30 MG Cap PO SCH (08:28)
[2021-05-03] MEDS: Potassium Phos in 0.9 % NaCl 15 MMOL in Premix Bag 1 BAG IV SCH ×4 (08:30→11:49)
[2021-05-03] MEDS: Vitamin B Complex Tab PO SCH (08:41)
[2021-05-03] MEDS: Cyanocobalamin (Vitamin B12) 1,000 MCG Tab SL SCH (08:41)
[2021-05-03] MEDS: VERIFY SCOP PATCH TOP SCH (08:42)
[2021-05-03] MEDS: Multivitamins with Iron Tab.Chew CHEW SCH (08:42)
[2021-05-03] MEDS: Calcium Carbonate 500 MG Tab.Chew PO SCH (08:42)
[2021-05-03] MEDS: Cholecalciferol (Vitamin D3) 25 MCG Tab PO SCH (08:42)
[2021-05-03] MEDS: Enoxaparin 100 MG/1 ML Syringe SUBCUT SCH (08:42)
--- NOTE | 2021-05-03 09:14 | PCM.DCSUM1 ---
Discharge Summary - Hospital Course Brief History: 35-year-old female with history of morbid obesity with a BMI greater than 70 and recent gastric bypass surgery with complicated postoperative course who presented with fever, tachycardia and weakness. She was admitted for management of sepsis with urinary tract infection identified. Diagnosis: Stroke: No - Discharge Data Discharge Date: 05/03/21 Discharge Disposition: Home, Self-Care 01 Condition: Good - Referral to Home Health Primary Care Physician: Tonny Allison MD - Discharge Diagnosis/Problem(s) (1) Bacteremia due to Enterobacter species SNOMED Code(s): 521249077202 ICD Code: R78.81 - BACTEREMIA; B96.89 - OTH BACTERIAL AGENTS THE CAUSE OF DISEASES CLASSD [id number] Status: Acute Current Visit: Yes (2) Sepsis SNOMED Code(s): 36343902 ICD Code: A41.9 - SEPSIS, UNSPECIFIED ORGANISM Status: Acute Current Visit: Yes Qualifiers: Sepsis type: sepsis due to unspecified organism Sepsis acute organ dysfunction status: without acute organ dysfunction Qualified Code(s): A41.9 - Sepsis, unspecified organism (3) UTI (urinary tract infection) SNOMED Code(s): 96503988 ICD Code: N39.0 - URINARY TRACT INFECTION, SITE NOT SPECIFIED Status: Acute Current Visit: Yes Qualifiers: Urinary tract infection type: acute cystitis Hematuria presence: without hematuria Qualified Code(s): N30.00 - Acute cystitis without hematuria (4) Status post bariatric surgery SNOMED Code(s): 645980747, 656965816, 573445100 ICD Code: Z98.84 - BARIATRIC SURGERY STATUS Status: Acute Current Visit: No Problem Details: Duodenal Switch (5) Morbid obesity with BMI of 70 and over, adult SNOMED Code(s): 322789418 ICD Code: E66.01 - MORBID (SEVERE) OBESITY DUE TO EXCESS CALORIES; Z68.45 - BODY MASS INDEX [BMI] 70 OR GREATER, ADULT Status: Chronic Current Visit: No - Patient Summary/Data Consults: Consultations 04/30/21 14:43 Consult to Physician [CONS] Routine Consulting Provider: Tonny Allison Courtesy Call Completed to Consulting Physician: Yes Reason for Consult: Fever, central line removal Hospital Course: Elza presented to the emergency room with fever, weakness and nausea. Work- up in the emergency room revealed evidence for sepsis with significant tachycardia. Urinalysis was suggestive of infection. She received IV fluids, broad-spectrum antibiotics and cultures were obtained. She was admitted to the hospital for further management. The morning after admission 2 blood cultures were positive for gram-negative rods. There was some concern that she may have an infection of her Marquez catheter so this was removed. Her urine culture was also growing a gram-negative richard. She did continue to have fevers on the day after admission. Her sepsis did resolve by that point. Over the next couple of days we saw steady improvement. Her fevers resolved. Symptomatically she was feeling better with increasing strength and appetite. She did have a migraine headache which resolved after endorse of Toradol and this also helped resolve her nausea. 2 out of 4 blood cultures grew out Enterobacter dissolve and. The Marquez catheter was removed and the tip was cultured but no bacteria have been grown from this culture. Her urine culture grew out E. coli. Given the severity of her illness at presentation I think this was more likely a Marquez catheter infection then the urinary tract infection that led to the sepsis. She was continued on IV antibiotics for 48 hours postop. She will be transitioned to oral medication starting tomorrow after discharge. Clinically she is feeling much better. Her vital signs have all been stable. Her strength and appetite are greatly improved. She feels well enough to go home at this time and should be safe for outpatient management at this point. She will have early follow-up after hospital discharge. - Patient Instructions Diet: Usual Diet as Tolerated Activity: As Tolerated Showering/Bathing: May Shower Notify Provider of: Fever, Increased Pain Other/Special Instructions: 1. Keep Marquez catheter site clean and dry. Cover with gauze to protect the area until it heals over. 2. I have sent a prescr iption for cefdinir (Omnicef). This is an antibiotic medication that was you should start taking to complete treatment for the urinary tract infection and bacteria that we found in your bloodstream. Your first dose outside of the hospital will be due tomorrow morning. You should take this medication twice daily with food. 3. Continue your other home medications as previously prescribed - Discharge Plan *PRESCRIPTION DRUG MONITORING PROGRAM REVIEWED*: Not Applicable *COPY OF PRESCRIPTION DRUG MONITORING REPORT IN PATIENT EVI: Not Applicable Prescriptions/Med Rec: Cefdinir 300 mg PO BID #20 capsule Home Medications: Home Meds Cetirizine [ZyrTEC] 10 mg PO DAILY PRN 03/09/21 [History] DULoxetine HCl [Cymbalta] 60 mg PO DAILY 03/09/21 [History] Furosemide 20 mg PO DAILY PRN 03/09/21 [History] Ketoconazole [Nizoral 2% Shampoo] 1 dose TOP ASDIRECTED 03/09/21 [History] Levothyroxine [Synthroid] 100 mcg PO ACBREAKFAST 03/09/21 [History] Pregabalin [Lyrica] 150 mg PO BID 03/09/21 [History] Calcium Carbonate [Calcium] 600 mg PO DAILY 03/11/21 [History] Cholecalciferol (Vitamin D3) [Vitamin D] 5,000 units PO DAILY 03/11/21 [History] Cyanocobalamin (Vitamin B-12) [Vitamin B-12] 1,000 mcg SL DAILY 03/11/21 [History] Multivitamin [Multivitamins] 1 tab CHEW BID 03/11/21 [History] Vitamin B Complex 1 tab PO DAILY 03/11/21 [History] Omeprazole 20 mg PO BID 04/09/21 [History] Metoclopramide HCl 10 mg PO Q6H PRN 04/13/21 [History] Ondansetron [Zofran ODT] 4 mg PO Q4H PRN 04/13/21 [History] Enoxaparin [Lovenox] 100 mg SUBCUT DAILY #14 syringe 04/14/21 [Rx] Cefdinir 300 mg PO BID #20 capsule 05/03/21 [Rx] Patient Handouts: Cefdinir Capsules, Urinary Tract Infection, Adult Referrals: Tonny Allison MD [Primary Care Provider] - 05/12/21 - Discharge Summary/Plan Comment DC Time >30 min.: No - Patient Data Vitals - Most Recent: Last Vital Signs Temp 36.6 C 05/03/21 08:00 Pulse 78 05/03/21 02:00 Resp 16 05/03/21 08:00 BP 114/73 05/03/21 08:00 Pulse Ox 94 L 05/03/21 08:00 Weight - Most Recent: 217.724 kg I&O - Last 24 hours: Intake & Output 05/02/21 05/03/21 05/03/21 22:59 06:59 14:59 Intake Total 120 Output Total 800 400 Balance -680 -400 Lab Results - Last 24 hrs: Laboratory Results - last 24 hr 05/03/21 05/03/21 Range/Units 04:10 04:10 WBC 3.0 L (4.5-11.0) K/uL RBC 4.22 (3.30-5.50) M/uL Hgb 11.6 L (12.0-15.0) g/dL Hct 37.8 (36.0-48.0) % MCV 90 (80-98) fL MCH 28 (27-31) pg MCHC 31 L (32-36) % Plt Count 154 (150-400) K/uL Sodium 144 (140-148) mmol/L Potassium 3.5 L (3.6-5.2) mmol/L Chloride 107 (100-108) mmol/L Carbon Dioxide 29 (21-32) mmol/L Anion Gap 11.5 (5.0-14.0) mmol/L BUN 7 (7-18) mg/dL Creatinine 0.8 (0.6-1.0) mg/dL Est Cr Clr Drug Dosing 80.42 mL/min Estimated GFR (MDRD) > 60 (>60) Glucose 98 (74-106) mg/dL Calcium 7.9 L (8.5-10.1) mg/dL Phosphorus 3.0 (2.5-4.9) mg/dL Magnesium 2.4 (1.8-2.4) mg/dL Total Bilirubin 0.4 (0.2-1.0) mg/dL AST 17 (15-37) U/L ALT 22 (12-78) U/L Alkaline Phosphatase 58 (46-116) U/L Total Protein 6.5 (6.4-8.2) g/dL Albumin 2.1 L (3.4-5.0) g/dL Globulin 4.4 H (2.3-3.5) g/dL Albumin/Globulin Ratio 0.5 L (1.2-2.2) TUNDE Results - Last 24 hrs: Microbiology 05/01/21 07:46 Gram Stain - Final Catheter Site - Marquez Line Wound Culture - Preliminary NO GROWTH AFTER 2 DAYS Anaerobic Culture - Preliminary NO GROWTH AFTER 2 DAYS 04/30/21 11:30 Aerobic Blood Culture - Preliminary Blood - Arm, Left NO GROWTH AFTER 2 DAYS Anaerobic Blood Culture - Preliminary NO GROWTH AFTER 2 DAYS 04/30/21 11:50 Aerobic Blood Culture - Final Blood - Central Line Enterobacter Dissolvens Anaerobic Blood Culture - Final Enterobacter Dissolvens 04/30/21 15:33 Urine Culture - Final Urine, Clean Catch Escherichia Coli Med Orders - Current: Current Medications Al Hydroxide/Mg Hydroxide (Aluminum Hydroxide/Magnesium Hydroxide/Simethicone Susp 30 Ml Cup) 30 ml PO Q3H PRN PRN Reason: NAUSEA Calcium Carbonate/Glycine (Calcium Carbonate 500 Mg Tab.Chew) 500 mg PO DAILY [facility] Last Admin: 05/03/21 08:42 Dose: 500 mg Documented by: Cetirizine HCl (Cetirizine 10 Mg Tab) 10 mg PO DAILY PRN PRN Reason: Allergies Cholecalciferol (Cholecalciferol (Vitamin D3) 25 Mcg Tab) 125 mcg PO DAILY [facility] Last Admin: 05/03/21 08:42 Dose: 125 mcg Documented by: Cyanocobalamin (Cyanocobalamin (Vitamin B12) 1,000 Mcg Tab) 1,000 mcg SL DAILY [facility] Last Admin: 05/03/21 08:41 Dose: 1,000 mcg Documented by: Duloxetine HCl (Duloxetine 30 Mg Cap) 60 mg PO DAILY [facility] Last Admin: 05/03/21 08:28 Dose: 60 mg Documented by: Enoxaparin Sodium (Enoxaparin 100 Mg/1 Ml Syringe) 100 mg SUBCUT DAILY [facility] Last Admin: 05/03/21 08:42 Dose: 100 mg Documented by: Ceftriaxone Sodium 2 gm/ (Sodium Chloride) 50 mls @ 100 mls/hr IV Q24H [facility] Potassium Phosphate 15 mmol/ (Premix) 250 mls @ 84 mls/hr IV Q3H [facility] Stop: 05/03/21 14:29 Last Admin: 05/03/21 08:30 Dose: 84 mls/hr Documented by: Ketorolac Tromethamine (Ketorolac 30 Mg/Ml Sdv) 30 mg IVPUSH Q6H PRN PRN Reason: Headache Stop: 05/08/21 07:03 Levothyroxine Sodium (Levothyroxine 100 Mcg Tab) 100 mcg PO ACBREAKFAST [facility] Last Admin: 05/03/21 08:27 Dose: 100 mcg Documented by: Lorazepam (Lorazepam 2 Mg/Ml Sdv) 0.5 mg IVPUSH Q4H PRN PRN Reason: Nausea Last Admin: 05/01/21 21:54 Dose: 0.5 mg Documented by: Metoclopramide HCl (Metoclopramide 10 Mg/2 Ml Sdv) 10 mg IV Q6H [facility] Last Admin: 05/03/21 08:29 Dose: 10 mg Documented by: Multivitamins/Iron (Multivitamins With Iron Tab.Chew) 1 tab CHEW BID [facility] Last Admin: 05/03/21 08:42 Dose: 1 tab Documented by: Verify Scop Patch 0 each TOP DAILY [facility] Last Admin: 05/03/21 08:42 Dose: Not Given Documented by: Ondansetron HCl (Ondansetron 4 Mg/2 Ml Sdv) 4 mg IV Q4H PRN PRN Reason: Nausea/Vomiting Last Admin: 05/03/21 02:37 Dose: 4 mg Documented by: Pantoprazole Sodium (Pantoprazole 40 Mg Delayed-Release Granules 1 Packet) 40 mg PO Q24H [facility] Last Admin: 05/03/21 08:27 Dose: 40 mg Documented by: Pregabalin (Pregabalin 75 Mg Cap) 150 mg PO BID [facility] Last Admin: 05/03/21 08:28 Dose: 150 mg Documented by: Scopolamine (Scopolamine 1.5 Mg Transdermal Patch) 1.5 mg TOP Q72H [facility] Last Admin: 05/02/21 08:38 Dose: 1.5 mg Documented by: Sodium Chloride (Sodium Chloride 0.9% 10 Ml Syringe) 10 ml FLUSH ASDIRECTED PRN PRN Reason: Keep Vein Open Vitamin B Complex (Vitamin B Complex Tab) 1 each PO DAILY [facility] Last Admin: 05/03/21 08:41 Dose: 1 each Documented by: Discontinued Medications Bisacodyl (Bisacodyl 5 Mg Tab) 10 mg PO BID [facility] Last Admin: 05/02/21 21:02 Dose: Not Given Documented by: Bupivacaine HCl (Bupivacaine 0.5% 50 Ml Mdv) Confirm Administered Dose 50 ml .ROUTE .STK-MED ONE Stop: 05/01/21 06:44 Last Admin: 05/01/21 07:42 Dose: 10 ml Documented by: Docusate Sodium (Docusate Sodium 100 Mg Cap) 100 mg PO BID [facility] Last Admin: 05/02/21 21:02 Dose: Not Given Documented by: Fentanyl (Fentanyl 100 Mcg/2 Ml Sdv) Confirm Administered Dose 100 mcg .ROUTE .STK-MED ONE Stop: 05/01/21 07:17 Sodium Chloride (Normal Saline) 1,000 mls @ 1,000 mls/hr IV .BOLUS ONE Stop: 04/30/21 12:20 Last Admin: 04/30/21 12:33 Dose: 1,000 mls/hr Documented by: Vancomycin HCl 2 gm/ Sodium (Chloride) 500 mls @ 250 mls/hr IV ONETIME ONE Stop: 04/30/21 15:59 Last Admin: 04/30/21 13:26 Dose: 250 mls/hr Documented by: Lactated Ringer's (Ringers, Lactated) 1,000 mls @ 125 mls/hr IV ASDIRECTED [facility] Last Admin: 05/01/21 03:50 Dose: 125 mls/hr Documented by: Piperacillin/Tazobactam/ (Dextrose 3.375 gm/ Premix) 50 mls @ 100 mls/hr IV Q6H [facility] Last Admin: 05/02/21 10:07 Dose: 100 mls/hr Documented by: Lactated Ringer's (Ringers, Lactated) 1,000 mls @ 999 mls/hr IV ASDIRECTED [facility] Stop: 04/30/21 16:44 Last Admin: 04/30/21 16:02 Dose: 999 mls/hr Documented by: Vancomycin HCl 2 gm/ Sodium (Chloride) 500 mls @ 250 mls/hr IV Q8H [facility] Last Admin: 05/01/21 05:29 Dose: 250 mls/hr Documented by: Aztreonam 1 gm/ Sodium (Chloride) 50 mls @ 100 mls/hr IV Q8H [facility] Last Admin: 05/02/21 09:09 Dose: 100 mls/hr Documented by: Magnesium Sulfate 2 gm/ Premix 50 mls @ 25 mls/hr IV Q6H [facility] Stop: 05/02/21 00:29 Last Admin: 05/01/21 22:42 Dose: 25 mls/hr Documented by: Potassium Chloride 20 meq/Lidocaine HCl 2 ml/ Sodium Chloride 112 mls @ 56 mls/hr IV Q2H [facility] Stop: 05/01/21 15:59 Last Admin: 05/01/21 14:13 Dose: 56 mls/hr Documented by: Vancomycin HCl 2 gm/ Sodium (Chloride) 500 mls @ 250 mls/hr IV Q12H [facility] Stop: 05/02/21 08:30 Last Admin: 05/02/21 06:08 Dose: 250 mls/hr Documented by: Ceftriaxone Sodium 2 gm/ (Sodium Chloride) 100 mls @ 200 mls/hr IV ONETIME ONE Stop: 05/02/21 13:29 Last Admin: 05/02/21 12:30 Dose: 200 mls/hr Documented by: Ibuprofen (Ibuprofen 400 Mg Tab) 400 mg PO ONETIME ONE Stop: 05/01/21 00:09 Last Admin: 05/01/21 00:35 Dose: 400 mg Documented by: Ibuprofen (Ibuprofen 400 Mg Tab) Confirm Administered Dose 400 mg .ROUTE .STK- MED ONE Stop: 05/01/21 00:29 Last Admin: 05/01/21 02:21 Dose: Not Given Documented by: Lidocaine/Epinephrine (Lidocaine 1% With Epinephrine 1:100,000 50 Ml Mdv) Confirm Administered Dose 50 ml .ROUTE .STK-MED ONE Stop: 05/01/21 06:44 Last Admin: 05/01/21 07:42 Dose: 10 ml Documented by: Lorazepam (Lorazepam 2 Mg/Ml Sdv) Confirm Administered Dose 2 mg .ROUTE .STK-MED ONE Stop: 05/01/21 16:27 Last Admin: 05/01/21 16:32 Dose: Not Given Documented by: Midazolam HCl (Midazolam 1 Mg/Ml 2 Ml Sdv) Confirm Administered Dose 2 mg .ROUTE .STK-MED ONE Stop: 05/01/21 07:17 Oxycodone HCl (Oxycodone 5 Mg Tab) 5 mg PO Q4H PRN PRN Reason: Pain (moderate 4-6) Pantoprazole Sodium (Pantoprazole 40 Mg Vial) 40 mg IVPUSH ONETIME ONE Stop: 04/30/21 13:57 Last Admin: 04/30/21 14:04 Dose: 40 mg Documented by: Potassium Chloride (Potassium Chloride 20 Meq Tab.Er) 40 meq PO ONETIME ONE Stop: 05/01/21 08:31 Last Admin: 05/01/21 10:02 Dose: 40 meq Documented by: Propofol (Propofol 200 Mg/20 Ml Sdv) Confirm Administered Dose 200 mg .ROUTE .STK-MED ONE Stop: 05/01/21 07:17 Vancomycin HCl (Vancomycin 1 Gm Sdv) 0 gm IV .PHARMACY TO DOSE [facility] Vancomycin HCl (Vancomycin 1 Gm Sdv) 1 gm IV .PHARMACY TO DOSE [facility]
[2021-05-03] MEDS ORDERED: cefTRIAXone 2 GM in Sodium Chloride 0.9% 50 ML IV SCH (14:00)
--- NOTE | 2021-05-03 14:07 | PN ---
DATE OF SERVICE: 05/01/2021 The patient was admitted overnight with what is most likely to be catheter sepsis in her Marqeuz catheter. This was removed today. Cultures of this are growing gram-negative rods. The patient is presently on Zosyn and vancomycin. Given the cultures, we will add Azactam that will cover the gram-negative rods. Otherwise, we will start a step-3 diet once again and she will likely be on IV antibiotics for the next few days based on the blood cultures. Tonny Allison MD /[id number]
--- NOTE | 2021-05-03 15:05 | PN ---
DATE OF SERVICE: 05/03/2021 The patient has been afebrile with stable vital signs. No major problems were noted overnight developing some migraines. She treats these with nonsteroidals in the past. We will give her some Toradol IV. Otherwise, her bowels are moving, and potassium and phosphate are marginally low, these will be supplemented today. We will continue with the present IV antibiotics, probably needs the IV antibiotics through perhaps Monday morning. We will try getting the patient transferred to second floor today which will make her care a little bit more efficient in terms of showers and such. Tonny Allison MD /[id number]
--- NOTE | 2021-05-03 15:44 | PN ---
DATE OF SERVICE: 05/02/2021 The patient has now been afebrile with stable vital signs. White count is slightly low at 3.0, but otherwise labs look okay. Basically, her problem is some nausea. This appeared to be per nursing related to vancomycin. Her cultures came back showing Escherichia coli in the urine and Enterobacter in the blood, both of which are sensitive to Azactam and piperacillin/tazobactam mix, so we will stop the vancomycin. Otherwise, we will treat the nausea little bit more aggressively scopolamine patch with some IV Reglan and Gaviscon p.r.n. and see if we can get some improvement in terms of oral intake with that. Tonny Allison MD /[id number]
--- NOTE | 2021-05-06 16:40 | OR ---
DATE OF PROCEDURE: 05/01/2021 SURGEON: Tonny Allison MD PREOPERATIVE DIAGNOSIS: Probable infected Marquez catheter. POSTOPERATIVE DIAGNOSIS: Probable infected Marquez catheter. PROCEDURE PERFORMED: Removal of Marquez catheter ([id number]). ANESTHESIA: Local plus IV sedation. INDICATION FOR PROCEDURE: This is a 35-year-old with a Marquez catheter in placed, being used for initially IV access and then subsequently IV hydration as needed. She presents now with a picture of an infection. She does have what appears to be UTI, but it is felt to most likely be Marquez catheter as the site of the infection and needs to be removed. Potential risks of the procedure including further bleeding and infection were reviewed, and the patient wishes to proceed. DETAILS OF PROCEDURE: The patient was taken to the operating room and placed in the supine position. IV sedation was administered after which the area around the Marquez catheter, which was in the left infraclavicular area, was prepped and draped and the skin around the catheter exit site anesthetized with 1% lidocaine. The suture over the area was then divided, and a small incision was made over the length of the catheter going approximately 6 to 7 mm. This then allowed access to the fibrous cuff which was then dissected free from its surrounding soft tissues and the catheter removed and pressure applied. Portions of the catheter were then divided and sent for culture and the procedure concluded. There were no evident complications. The patient was taken to the recovery room in satisfactory condition. Tonny Allison MD /[id number]
== END 2021-05-03 15:54 | disposition home or self-care (01) | DRG 872 ==
LOC: JP.ED 10:32 → JP.ICU 14:32
PROVIDERS: ADMIT Hospitalist; ATTEND Internal Medicine
DX: A41.89 Other specified sepsis (principal); Z68.45 Body mass index [BMI] 70 or greater, adult; N39.0 Urinary tract infection, site not specified; E66.01 Morbid (severe) obesity due to excess calories; Z98.84 Bariatric surgery status; E83.42 Hypomagnesemia; K21.9 Gastro-esophageal reflux disease without esophagitis; Z87.01 Personal history of pneumonia (recurrent); G47.33 Obstructive sleep apnea (adult) (pediatric); E03.9 Hypothyroidism, unspecified; Z90.710 Acquired absence of both cervix and uterus
CPT/HCPCS: 36415; 71046; 71046-26; 71250; 80048; 80053; 80202; 81001; 83605; 83735; 84100; 84145; 85025; 85027; 87040; 87070; 87075; 87086; 87088; 87186; 87205; 96365; 99285-25; A9270-GY; C9113; J0696; J1650; J2060; J2250; J2405; J2543; J2704; J2765; J3010; J3370; J3475; J3480; J3490; J7030; J7040; J7120

== ENCOUNTER 2022-04-07 06:34 | Day surgery (SDC) | payer MEDICAID ==
[2022-04-07] MEDS ORDERED: Celecoxib 100 MG Cap PO ONE (07:00)
[2022-04-07] MEDS ORDERED: Dextrose 5%-Lactated Ringers 1,000 ML IV SCH (07:00)
[2022-04-07] MEDS ORDERED: ceFAZolin 2 GM in Premix Bag 1 BAG IV ONE (07:00)
[2022-04-07] MEDS ORDERED: Neostigmine Methylsulfate 1 MG/ML 5 ML Syringe ONE (07:08)
[2022-04-07] MEDS ORDERED: Rocuronium 50 MG/5 ML Vial ONE (07:08)
[2022-04-07] MEDS ORDERED: Succinylcholine 200 MG/10 ML MDV ONE (07:08)
[2022-04-07] MEDS ORDERED: Glycopyrrolate 0.2 MG/ML 5 ML MDV ONE (07:08)
[2022-04-07] MEDS ORDERED: Ondansetron 4 MG/2 ML SDV ONE (07:08)
[2022-04-07] MEDS ORDERED: Dexamethasone 4 MG/ML SDV ONE (07:08)
[2022-04-07] MEDS ORDERED: Propofol 200 MG/20 ML SDV ONE (07:08)
[2022-04-07] MEDS ORDERED: fentaNYL 250 MCG/5 ML SDV ONE ×2 (07:09→09:06)
[2022-04-07] MEDS ORDERED: Celecoxib 200 MG Cap PO ONE (07:15)
[2022-04-07] MEDS ORDERED: Bupivacaine 0.5% 50 ML MDV ONE (07:35)
[2022-04-07] MEDS ORDERED: Lidocaine 1% with EPINEPHrine 1:100,000 50 ML MDV ONE (07:35)
[2022-04-07] MEDS ORDERED: Ketoconazole 2% Crm 30 GM Tube ONE (09:13)
[2022-04-07] MEDS ORDERED: Linezolid 600 MG/300 ML Premix Bag IRR ONE (09:32)
[2022-04-07] MEDS ORDERED: Lactated Ringers 1,000 ML ONE (09:59)
[2022-04-07] MEDS ORDERED: Ketorolac 30 MG/ML SDV ONE (10:14)
[2022-04-07] MEDS ORDERED: Ondansetron 4 MG/2 ML SDV IVPUSH ONE (12:30)
[2022-04-07] MEDS ORDERED: Cephalexin 250 MG Cap PO ONE (13:00)
== END 2022-04-07 14:00 | disposition home or self-care (01) ==
LOC: JP.SDS 06:34
PROVIDERS: ATTEND Surgery
DX: R22.43 Localized swelling, mass and lump, lower limb, bilateral (principal); E55.9 Vitamin D deficiency, unspecified; E53.8 Deficiency of other specified B group vitamins; E60 Dietary zinc deficiency; E50.9 Vitamin A deficiency, unspecified; F41.9 Anxiety disorder, unspecified; K91.2 Postsurgical malabsorption, not elsewhere classified; Z98.84 Bariatric surgery status; K21.9 Gastro-esophageal reflux disease without esophagitis; G47.33 Obstructive sleep apnea (adult) (pediatric); Z79.899 Other long term (current) drug therapy; F17.200 Nicotine dependence, unspecified, uncomplicated
CPT/HCPCS: A9270-GY; J0330; J0690; J1100; J1885; J2020; J2405; J2704; J2710; J3010; J3490; J7120; J7121